=== PATIENT | female | born 1965 | race Caucasian/White ===

== ENCOUNTER → 2016-12-23 | Outpatient (CLI) | payer MEDICAID ==
--- NOTE | 2016-12-23 12:51 | US ---
EXAMINATION TYPE: US axilla extremity LT DATE OF EXAM: 12/23/2016 COMPARISON: NONE CLINICAL HISTORY: Lymphadenopathy R59.9. Palpable in left axilla for years, tender 1.4cm isoechoic well circumscribed lesion seen, non vascular. IMPRESSION: 1.4 CM SOLID MASS IN THE LEFT AXILLA. THIS DOES NOT HAVE THE APPEARANCE OF A LYMPH NODE.
== END | disposition home or self-care (01) ==
LOC: RADUSWWP 11:53
PROVIDERS: ATTEND Surgery
DX: R22.9 Localized swelling, mass and lump, unspecified (principal)

== ENCOUNTER → 2016-12-27 | Outpatient (CLI) | payer MEDICAID, OTHER ==
--- NOTE | 2016-12-28 12:50 | MM ---
Reason for exam: screening (asymptomatic). Last mammogram was performed 2 years and 7 months ago. History: Patient is postmenopausal. Excisional biopsy of the right breast, 1997. Physical Findings: A clinical breast exam by your physician is recommended on an annual basis and results should be correlated with mammographic findings. MG Screening Mammo w CAD Bilateral CC and MLO view(s) were taken. Prior study comparison: May 26, 2014, bilateral MG screening mammo w CAD. May 02, 2008, bilateral digital screening mammogram. The breast tissue is heterogeneously dense. This may lower the sensitivity of mammography. No significant changes when compared with prior studies. ASSESSMENT: Benign, BI-RAD 2 RECOMMENDATION: Routine screening mammogram of both breasts in 1 year.
== END | disposition home or self-care (01) ==
LOC: RADMAMWWP 10:55
PROVIDERS: ATTEND Internal Medicine
DX: Z12.31 Encounter for screening mammogram for malignant neoplasm of breast (principal)

== ENCOUNTER → 2016-12-30 | Day surgery (SDC) | payer MEDICAID, OTHER ==
[2016-12-28 11:54] VITALS: BMI 33.0
[~2016-12-30] MED LIST: LACTATED RINGERS 1,000 ML IV SCH; LIDOCAINE 1% 20 ML VIAL (10MG/ML) FOR IV START INTRADERMA PRN; PROPOFOL 10 MG/ML 20 ML VIAL IV ONE
[2016-12-30 12:29] VITALS: RESP 16; TEMP 98.3
[2016-12-30 12:35] LABS: Glucose,Whole Blood 76 mg/dL (75-99)
--- NOTE | 2016-12-30 13:41 | P.OP ---
Date of Procedure: 12/30/16 Preoperative Diagnosis: Colon cancer screening Postoperative Diagnosis: Same, normal colonoscopy Procedure(s) Performed: Colonoscopy Implants: Anesthesia: MAC Surgeon: Heather Rivera Pathology: none sent Condition: stable Disposition: PACU Indications for Procedure: The patient presented for colon cancer screening Operative Findings: She's taken to the endoscopy suite where colonoscope is passed per rectum to the cecum. She had an excellent Prep. She had no evidence of polyp, mass lesion, ulcer or other mucosal abnormality. No evidence of any diverticular disease. No significant hemorrhoidal disease on retroflexion of the scope She tolerated the procedure without difficulty and was taken recovery room in satisfactory condition. She did after repeat colonoscopy in 10 years as long as nothing changes with the bowel habits. Description of Procedure: Plan - Discharge Summary New Discharge Prescriptions: No Action Quinapril HCl [Accupril] 20 mg PO DAILY Methocarbamol [Robaxin] 750 mg PO TID Isosorbide Mononitrate [Imdur] 30 mg PO BID Aspirin 81 mg PO DAILY Cholecalciferol [Vitamin D3] 1,000 units PO DAILY Pravastatin Sodium [Pravachol] 10 mg PO DAILY #30 tab Dapagliflozin Propanediol [Farxiga] 10 mg PO DAILY Ranolazine [Ranexa] 500 mg PO BID metFORMIN HCL [Glucophage] 1,000 mg PO BID Metoprolol Succinate (ER) [Toprol Xl] 100 mg PO DAILY Insulin Glargine/Lixisenatide [Soliqua 100 Unit-33 Mcg/ml Pen] 30 units SQ QAM Discharge Medication List Aspirin 81 mg PO DAILY 11/21/13 [History] Isosorbide Mononitrate [Imdur] 30 mg PO BID 11/21/13 [History] Methocarbamol [Robaxin] 750 mg PO TID 11/21/13 [History] Quinapril HCl [Accupril] 20 mg PO DAILY 11/21/13 [History] Cholecalciferol [Vitamin D3] 1,000 units PO DAILY 12/04/13 [History] Pravastatin Sodium [Pravachol] 10 mg PO DAILY #30 tab 10/05/14 [Rx] Dapagliflozin Propanediol [Farxiga] 10 mg PO DAILY 11/13/14 [History] Ranolazine [Ranexa] 500 mg PO BID 06/03/15 [History] Metoprolol Succinate (ER) [Toprol Xl] 100 mg PO DAILY 01/25/16 [History] metFORMIN HCL [Glucophage] 1,000 mg PO BID 01/25/16 [History] Insulin Glargine/Lixisenatide [Soliqua 100 Unit-33 Mcg/ml Pen] 30 units SQ QAM 12/28/16 [History] Discharge Disposition: HOME SELF-CARE
[2016-12-30 14:12] LABS: Glucose,Whole Blood 67 mg/dL (75-99)
[2016-12-30 14:19] VITALS: BP 140/76; PULSE 71
== END | disposition home or self-care (01) ==
LOC: ORWHC2ENDO 12:11
PROVIDERS: ATTEND Surgery
DX: Z12.11 Encounter for screening for malignant neoplasm of colon (principal); I25.10 Atherosclerotic heart disease of native coronary artery without angina pectoris; I10 Essential (primary) hypertension; E78.5 Hyperlipidemia, unspecified; Z95.5 Presence of coronary angioplasty implant and graft; E11.9 Type 2 diabetes mellitus without complications; Z79.4 Long term (current) use of insulin; Z79.84 Long term (current) use of oral hypoglycemic drugs; Z79.82 Long term (current) use of aspirin; Z79.899 Other long term (current) drug therapy
CPT/HCPCS: J2704; G0121

== ENCOUNTER → 2017-10-30 | Outpatient (CLI) | payer MEDICAID ==
[2017-10-30 09:54] LABS: HGB 13.4 gm/dL (11.4-16.0); MCH 31.2 pg (25.0-35.0); MCHC 32.7 g/dL (31.0-37.0); MCV 95.4 fL (80.0-100.0); Mean Platelet Volume 6.8; Platelet Count 330 k/uL (150-450); RDW 12.9 % (11.5-15.5); WBC 10.2 k/uL (3.8-10.6)
[2017-10-30 10:19] LABS: Anion Gap 9 mmol/L; Blood Urea Nitrogen 21 mg/dL (7-17); Carbon Dioxide 28 mmol/L (22-30); Chloride 105 mmol/L (98-107); Potassium 4.3 mmol/L (3.5-5.1); Sodium 142 mmol/L (137-145)
== END | disposition home or self-care (01) ==
LOC: LABPAT 09:11
PROVIDERS: ATTEND Internal Medicine Interventional Cardiology
DX: Z01.812 Encounter for preprocedural laboratory examination (principal); I25.10 Atherosclerotic heart disease of native coronary artery without angina pectoris
CPT/HCPCS: 36415; 80051; 82565; 84520; 85027

== ENCOUNTER → 2017-10-30 | Outpatient (CLI) | payer MEDICAID ==
[2017-10-30 10:23] LABS: ALT 45 U/L (9-52); AST 27 U/L (14-36); Cholesterol 120 mg/dL (<200); HDL Cholesterol 67 mg/dL (40-60); LDL Cholesterol,Calculated 32 mg/dL (0-99); Triglycerides 103 mg/dL (<150)
[2017-10-30 18:41] LABS: Hemoglobin A1C 11.7 % (4.0-6.0)
== END ==
LOC: LABWHC1 09:14
PROVIDERS: ATTEND Internal Medicine Interventional Cardiology
DX: E78.2 Mixed hyperlipidemia (principal); E55.9 Vitamin D deficiency, unspecified; E11.65 Type 2 diabetes mellitus with hyperglycemia
CPT/HCPCS: 36415; 80061; 82043; 82306; 82570; 83036; 84450; 84460

== ENCOUNTER 2017-11-06 06:23 | Day surgery (SDC) | payer MEDICAID ==
[2017-11-06] MEDS ORDERED: SODIUM CHLORIDE 0.9% 1,000 ML in EMPTY BAG 1 BAG IV ONE (06:29)
[2017-11-06] MEDS ORDERED: ASPIRIN 325 MG TAB PO STA (06:29)
[2017-11-06] MEDS ORDERED: NITROGLYCERIN SL TABS 0.4 MG TAB SUBLINGUAL PRN (06:29)
[2017-11-06] MEDS ORDERED: ALPRAZolam 0.5 MG TAB PO PRN (06:29)
[2017-11-06] MEDS ORDERED: ALPRAZolam 0.25 MG TAB PO PRN (06:29)
[2017-11-06 07:05] LABS: Glucose,Whole Blood 71 mg/dL (75-99)
[2017-11-06 08:18] LABS: Glucose,Whole Blood 63 mg/dL (75-99)
[2017-11-06] MEDS ORDERED: MIDAZOLAM 2 MG/2 ML VIAL IV ONE (12:32)
[2017-11-06] MEDS ORDERED: LIDOCAINE 2% INJ 20 MG/ML SQ ONE (12:43)
[2017-11-06] MEDS ORDERED: IOPAMIDOL-370 125ML BTL INJ ONE (13:14)
[2017-11-06] MEDS ORDERED: RX INFO: IV CONTRAST WAS GIVEN 1 EACH MISC MISCELLANE PRN (13:18)
[2017-11-06] MEDS ORDERED: LIDOCAINE 2% INJ 20 MG/ML (20 ML MDV) ONE (13:26)
[2017-11-06] MEDS ORDERED: SODIUM CHLORIDE 0.9% 1,000 ML IV SCH (13:30)
[2017-11-06 15:10] LABS: Glucose,Whole Blood 73 mg/dL (75-99)
[2017-11-06 15:10] LABS: Glucose,Whole Blood 66 mg/dL (75-99)
--- NOTE | 2017-11-06 16:29 | CC ---
CARDIAC CATHETERIZATION REPORT DATE OF SERVICE: 11/06/2017 PERFORMING PHYSICIAN: Raheem Frazier MD, property master. PROCEDURES PERFORMED: 1. Selective right and left coronary angiogram. 2. Left heart catheterization. INDICATION: This is a pleasant 52-year-old female patient with known history of coronary artery disease and prior triple-vessel angioplasty and stenting. She was experiencing intermittent episodes of chest discomfort concerning for angina. Heart catheterization was recommended. She is on maximized medical treatment. APPROACH: Right common femoral artery. COMPLICATIONS: None. LEVEL OF SEDATION: Moderate with sedation length of 31 minutes. PROCEDURE DESCRIPTION: After obtaining informed consent, the patient was brought to the cardiac general production laborer. The right common femoral artery was cannulated using micropuncture technique. The micropuncture wire passed easily. Then I placed a 6-Japanese sheath in the right common femoral artery. I did selective right and left coronary angiogram using Jadon right for the RCA and JL3.5 for the left coronary system. Then I did left heart catheterization using 6- Japanese pigtail catheter. The procedure was completed without any complication. SELECTIVE CORONARY ANGIOGRAM: 1. The right coronary artery is a large-caliber vessel. It is a dominant vessel. The proximal RCA and mid RCA has intermediate disease only in the range of 50%. The RCA distally is stented and the stent is patent. The RCA bifurcates into PDA and PLV branches. The PDA branch is angiographically normal and the PLV branch has a lesion that appeared to be in the range of 80% to 90%. 2. The left main is angiographically normal. It bifurcates into left circumflex and left anterior descending artery. 3. The left circumflex is a large-caliber vessel. It is a nondominant vessel. The proximal circumflex appeared to have mild disease only. The mid circumflex is stented and the stent is patent. The circumflex distally is angiographically normal. 4. The LAD: The proximal LAD appeared to be angiographically normal. The mid LAD by the bifurcation of the first and second diagonal is stented and the stent has mild to moderate in-stent restenosis. The LAD distally appeared to be angiographically normal. HEMODYNAMICS: The left ventricular end-diastolic pressure was about 12 mmHg, and no gradient was identified across the aortic valve. CONCLUSION: 1. Patent stent in the distal RCA with severe disease involving the ostial PLV branch of the RCA. 2. Normal left main coronary artery. 3. Patent stent in the left circumflex. 4. Mild to moderate in-stent restenosis of the mid LAD. POST-PROCEDURE MANAGEMENT: I did recommend maximized medical treatment at this point of time. The patient does not want to add any Ranexa to the current medical treatment and she would like to pursue percutaneous coronary intervention. I will schedule her tomorrow to undergo stenting of the PLV branch of the RCA. MMODL / IJN: [id number] /
[2017-11-06 17:09] LABS: Glucose,Whole Blood 168 mg/dL (75-99)
[2017-11-06] MEDS: INSULIN ASPART 100 UNIT/ML 1 ML 10 ML VIAL SQ SCH (17:23)
[2017-11-06] MEDS: ISOSORBIDE MONONITRATE ER 30 MG TAB.ER.24H PO SCH (20:23)
[2017-11-06] MEDS: RANOLAZINE 500 MG TAB.ER.12H PO SCH (20:23)
[2017-11-06 20:56] LABS: Glucose,Whole Blood 171 mg/dL (75-99)
[2017-11-07] MEDS: CHOLECALCIFEROL 1,000 UNIT TAB PO SCH (06:36)
[2017-11-07] MEDS: CLOPIDOGREL 75 MG TAB PO SCH (06:37)
[2017-11-07] MEDS: RANOLAZINE 500 MG TAB.ER.12H PO SCH ×2 (06:38→20:54)
[2017-11-07] MEDS: LISINOPRIL 20 MG TAB PO SCH (06:38)
[2017-11-07] MEDS: METOPROLOL SUCCINATE (ER) 100 MG TAB.ER.24H PO SCH (06:38)
[2017-11-07] MEDS: ISOSORBIDE MONONITRATE ER 30 MG TAB.ER.24H PO SCH ×2 (06:42→20:58)
[2017-11-07 06:46] LABS: Glucose,Whole Blood 169 mg/dL (75-99)
[2017-11-07] MEDS ORDERED: ASPIRIN 325 MG TAB PO ONE (07:46)
[2017-11-07] MEDS ORDERED: SODIUM CHLORIDE 0.9% 1,000 ML IV ONE (07:50)
[2017-11-07] MEDS ORDERED: MIDAZOLAM 2 MG/2 ML VIAL IV ONE (08:00)
[2017-11-07] MEDS ORDERED: LIDOCAINE 2% INJ 20 MG/ML SQ ONE (08:05)
[2017-11-07] MEDS ORDERED: BIVALIRUDIN BOLUS 250 MG/50 ML IV ONE (08:10)
[2017-11-07] MEDS ORDERED: BIVALIRUDIN 250 MG in SODIUM CHLORIDE 0.9% 50 ML IV ONE (08:11)
[2017-11-07] MEDS ORDERED: fentaNYL (PF) 50 MCG/ML 2 ML AMP IV ONE (08:12)
[2017-11-07] MEDS ORDERED: NITROGLYCERIN 1000MCG/10ML SYRINGE INTRACORON ONE (08:37)
[2017-11-07] MEDS ORDERED: IOPAMIDOL-370 125ML BTL INJ ONE (08:39)
[2017-11-07] MEDS ORDERED: CLOPIDOGREL 75 MG TAB PO ONE (08:40)
[2017-11-07] MEDS ORDERED: NITROGLYCERIN SL TABS 0.4 MG TAB SUBLINGUAL PRN (08:43)
[2017-11-07] MEDS ORDERED: MAG HYDROX/AL HYDROX/SIMETH 30 ML CUP PO PRN (08:43)
[2017-11-07] MEDS ORDERED: ZOLPIDEM 5 MG TAB PO PRN (08:43)
[2017-11-07] MEDS ORDERED: RX INFO: IV CONTRAST WAS GIVEN 1 EACH MISC MISCELLANE PRN (08:43)
[2017-11-07] MEDS ORDERED: ATROPINE SULFATE 0.1 MG/ML 10ML SYRINGE IV PRN (08:43)
[2017-11-07] MEDS ORDERED: SODIUM CHLORIDE 0.9% 1,000 ML IV SCH (08:45)
--- NOTE | 2017-11-07 09:08 | LTR ---
November 06, 2017 Re: Cabrera Luciana Dear Dr. Thomas: Ms. Luciana Rees was experiencing intermittent episodes of chest discomfort concerning for unstable angina and she underwent a heart catheterization and that revealed severe disease involving the PLV branch of the RCA and she underwent successful stenting of that branch with good angiographic results and without any complication. I want to thank you for allowing me to participate in her care and please do not hesitate to call if you have any question or concern. Sincerely, MD ISELA Lucia / CLINTN: [id number] /
[2017-11-07 09:20] LABS: Glucose,Whole Blood 194 mg/dL (75-99)
[2017-11-07] MEDS: ASPIRIN 81 MG PO SCH (09:32)
[2017-11-07 09:42] VITALS: BMI 40.1
[2017-11-07] MEDS: INSULIN DETEMIR 100 UNIT/ML 10 ML VIAL SQ SCH ×2 (09:53→10:27)
[2017-11-07] MEDS: INSULIN ASPART 100 UNIT/ML 1 ML 10 ML VIAL SQ SCH ×3 (09:53→17:20)
[2017-11-07] MEDS: PIOGLITAZONE 15 MG TAB PO SCH (09:54)
[2017-11-07] MEDS: ACETAMINOPHEN TAB 325 MG TAB PO PRN (11:01)
--- NOTE | 2017-11-07 11:50 | PTCA ---
PERCUTANEOUSTRANS CORORONARY ANGIOGRAPHY DATE OF SERVICE: 11/07/2017 PERFORMING PHYSICIAN: Raheem Frazier MD, trademark attorney. PROCEDURE PERFORMED: Successful stenting of the PLV branch of the RCA using 2.5 x 8 mm Xience PRICILLA with good angiographic results. INDICATION: This is a pleasant 52-year-old female patient with known history of coronary artery disease and prior stenting as well as multiple comorbid conditions including diabetes, hypertension, dyslipidemia, was experiencing intermittent episodes of chest discomfort concerning for unstable angina. Patient underwent a heart catheterization yesterday and that showed severe disease involving the PLV branch of the RCA and she was brought today to undergo an intervention on it. APPROACH: Right common femoral artery. COMPLICATION: None. LEVEL OF SEDATION: Moderate sedation length of 35 minutes. PROCEDURE DESCRIPTION: After obtaining an informed consent, the patient was brought to the cardiac laboratory monitor. The right common femoral artery was cannulated using micropuncture technique, the micropuncture wire passed easily, then I placed a 6-Romanian sheath in the right common femoral artery. Subsequently I did start anticoagulation using Angiomax. I did after that engage the RCA using a Dionicio right guide. Then I did wire the RCA using initially a whisper wire, but I could not advance any balloon over the whisper wire, so I have to use another wire which was a run-through wire. I was able to balloon the PLV branch using initially 1.5 mm balloon, then 2.5 mm balloon then I deployed 2.5 x 8 mm Xience PRICILLA where the stent was positioned under fluoroscopy guidance and deployed under its nominal pressure. The following angiogram showed good angiographic results without perforation and without dissection with good flow. The procedure was completed without any complication. POSTPROCEDURE MANAGEMENT: 1. Dual anti-platelet therapy. 2. Risk factor modifications. 3. Follow up with the patient. MMODL / IJN: [id number] /
[2017-11-07 12:16] LABS: Glucose,Whole Blood 239 mg/dL (75-99)
[2017-11-07 16:49] LABS: Glucose,Whole Blood 82 mg/dL (75-99)
[2017-11-07 19:40] LABS: Glucose,Whole Blood 46 mg/dL (75-99)
[2017-11-07 20:02] LABS: Glucose,Whole Blood 61 mg/dL (75-99)
[2017-11-08] MEDS: ACETAMINOPHEN TAB 325 MG TAB PO PRN (04:03)
[2017-11-08 05:57] LABS: Glucose,Whole Blood 72 mg/dL (75-99)
[2017-11-08 06:01] LABS: Basophils % (A) 0 %; Eosinophils # (A) 0.1 k/uL (0-0.7); Eosinophils % (A) 1 %; HCT 34.5 % (34.0-46.0); HGB 11.2 gm/dL (11.4-16.0); Lymphocytes # (A) 2.1 k/uL (1.0-4.8); Lymphocytes % (A) 30 %; MCH 30.9 pg (25.0-35.0); MCHC 32.3 g/dL (31.0-37.0); MCV 95.6 fL (80.0-100.0); Mean Platelet Volume 7.9; Monocytes # (A) 0.4 k/uL (0-1.0); Monocytes % (A) 6 %; Neutrophils # (A) 4.3 k/uL (1.3-7.7); Neutrophils % (A) 62 %; Platelet Count 278 k/uL (150-450); RBC 3.61 m/uL (3.80-5.40); WBC 6.9 k/uL (3.8-10.6)
[2017-11-08 06:26] LABS: Anion Gap 6 mmol/L; Blood Urea Nitrogen 20 mg/dL (7-17); Calcium 8.8 mg/dL (8.4-10.2); Carbon Dioxide 29 mmol/L (22-30); Chloride 105 mmol/L (98-107); Glucose 87 mg/dL (74-99); Potassium 4.7 mmol/L (3.5-5.1); Sodium 140 mmol/L (137-145)
[2017-11-08] MEDS: INSULIN ASPART 100 UNIT/ML 1 ML 10 ML VIAL SQ SCH (06:49)
[2017-11-08 08:07] VITALS: BP 116/82; PULSE 70; RESP 16; TEMP 97.8
[2017-11-08] MEDS: INSULIN DETEMIR 100 UNIT/ML 10 ML VIAL SQ SCH (08:52)
[2017-11-08] MEDS: LISINOPRIL 20 MG TAB PO SCH (08:52)
[2017-11-08] MEDS: METOPROLOL SUCCINATE (ER) 100 MG TAB.ER.24H PO SCH (08:52)
[2017-11-08] MEDS: ASPIRIN 81 MG PO SCH (08:52)
[2017-11-08] MEDS: RANOLAZINE 500 MG TAB.ER.12H PO SCH (08:52)
[2017-11-08] MEDS: CHOLECALCIFEROL 1,000 UNIT TAB PO SCH (08:52)
[2017-11-08] MEDS: CLOPIDOGREL 75 MG TAB PO SCH (08:52)
[2017-11-08] MEDS: PIOGLITAZONE 15 MG TAB PO SCH (08:52)
[2017-11-08] MEDS: ISOSORBIDE MONONITRATE ER 30 MG TAB.ER.24H PO SCH (08:52)
--- NOTE | 2017-11-08 12:17 | DS ---
DISCHARGE SUMMARY DATE OF ADMISSION: 11/06/2017 DATE OF DISCHARGE: 11/08/2017. BRIEF HISTORY: This is a pleasant 52-year-old female patient with a known history of coronary artery disease and prior coronary artery stenting, who was experiencing intermittent episodes of chest discomfort concerning for angina. She underwent a heart catheterization and that revealed critical disease involving the PLV branch of the RCA and the following day, she underwent successful stenting of the PLV branch of the RCA using a drug-eluting stent with good angiographic results and without any complication from a procedure was performed from the right groin. On follow up with her today, she is asymptomatic. The chest discomfort has resolved completely. The right groin is soft and nontender and without any bruises. The patient is going to be discharged home today and I will follow up with the patient in the office as an outpatient. ISELA / STEVE: [id number] /
== END 2017-11-08 09:42 | disposition home or self-care (01) ==
LOC: CATHCVL 06:23 → 6SEL 13:48 → CATHCVL 11-08 09:42
PROVIDERS: ATTEND Internal Medicine Interventional Cardiology
DX: I25.110 Atherosclerotic heart disease of native coronary artery with unstable angina pectoris (principal); T82.855A Stenosis of coronary artery stent, initial encounter; I10 Essential (primary) hypertension; E78.00 Pure hypercholesterolemia, unspecified; E66.9 Obesity, unspecified; E11.9 Type 2 diabetes mellitus without complications; E78.5 Hyperlipidemia, unspecified; Z79.4 Long term (current) use of insulin; Z79.02 Long term (current) use of antithrombotics/antiplatelets; Z95.5 Presence of coronary angioplasty implant and graft; Z88.8 Allergy status to other drugs, medicaments and biological substances; Z79.82 Long term (current) use of aspirin; Z79.899 Other long term (current) drug therapy; Z68.41 Body mass index [BMI] 40.0-44.9, adult
CPT/HCPCS: 93458; 80048; 85025; C9600; C1769 ×5; C1725 ×2; C1887; C1894 ×2; C1874; J2001 ×2; J2250 ×2; J3010; J0583; Q9967 ×2

== ENCOUNTER 2018-02-03 19:43 | Emergency (ER) | payer MEDICAID ==
[2018-02-03 20:05] VITALS: BP 144/70; PULSE 74; RESP 18; TEMP 97.8
[2018-02-03] MEDS ORDERED: HYDROmorphone 1 MG/ML 1 ML SYRINGE IM STA (20:12)
[2018-02-03] MEDS ORDERED: DIAZEPAM 5 MG TAB PO STA (20:12)
[2018-02-03] MEDS ORDERED: IBUPROFEN 800 MG TAB PO STA (20:12)
--- NOTE | 2018-02-03 20:31 | XR ---
EXAMINATION TYPE: XR shoulder complete LT DATE OF EXAM: 02/03/2018 CLINICAL HISTORY: Left shoulder pain no trauma TECHNIQUE: Three views of the left shoulder are obtained. COMPARISON: Prior x-rays of the left shoulder dated 06/25/2012. FINDINGS: There is no acute fracture/dislocation evident in the left shoulder. Mild hypertrophic guille nges are present at the level of the acromioclavicular joint. The visualized ribs are intact and un remarkable. New calcifications project lateral to the shoulder joint indicating peritendinitis calcar ea and or chondrocalcinosis. The calcifications were not present on the prior exam. Satisfactory posi tion of the humeral head inside the glenoid fossa. IMPRESSION: There is no acute fracture or dislocation in the left shoulder. Hypertrophic changes present at the level of the acromioclavicular joint. Calcific density also proje cting lateral to the shoulder consistent with peritendinitis calcarea versus chondrocalcinosis. The c alcifications were not present on the prior x-ray. No focal bone destruction.
--- NOTE | 2018-02-03 20:44 | ED ---
General Adult HPI - General Chief complaint: Extremity Injury, Upper Stated complaint: Arm pain Time Seen by Provider: 02/03/18 20:12 Source: patient, family, RN notes reviewed, old records reviewed Mode of arrival: ambulatory Limitations: no limitations - History of Present Illness Initial comments: This is a 52-year-old female the ER for evaluation. Patient presents for evaluation regarding shoulder pain. Left shoulder pain with decreased range of motion. A she has no specific injury. She states she's had similar issues with her right shoulder. She awoke with the symptoms earlier today. The trauma. No shortness of breath or chest pain - Related Data Home Medications Medication Instructions Recorded Confirmed Aspirin 81 mg PO DAILY 11/21/13 02/03/18 Isosorbide Mononitrate [Imdur] 30 mg PO BID 11/21/13 02/03/18 Quinapril HCl [Accupril] 20 mg PO DAILY 11/21/13 02/03/18 Cholecalciferol [Vitamin D3] 4,000 units PO DAILY 12/04/13 02/03/18 Ranolazine [Ranexa] 500 mg PO BID 06/03/15 02/03/18 Metoprolol Succinate (ER) [Toprol 100 mg PO DAILY 01/25/16 02/03/18 XL] Insulin Glargine [Lantus] 55 unit SQ DAILY 06/12/17 02/03/18 Atorvastatin [Lipitor] 80 mg PO DAILY 11/01/17 02/03/18 Furosemide [Lasix] 20 mg PO DAILY 11/01/17 02/03/18 INSULIN LISPRO (humaLOG) [humaLOG] 10 units SQ AC-TID 11/01/17 02/03/18 Pioglitazone [Actos] 15 mg PO DAILY 11/01/17 02/03/18 Previous Rx's Medication Instructions Recorded Clopidogrel [Plavix] 75 mg PO DAILY #30 tab 06/15/17 Nitroglycerin Sl Tabs [Nitrostat] 0.4 mg SUBLINGUAL Q5M PRN #25 tab 06/15/17 Allergies Allergy/AdvReac Type Severity Reaction Status Date / Time [id number] Reductase AdvReac muscle Verified 02/03/18 20:04 Inhibitor spasms Review of Systems ROS Statement: Those systems with pertinent positive or pertinent negative responses have been documented in the HPI. ROS Other: All systems not noted in ROS Statement are negative. Past Medical History Past Medical History: Coronary Artery Disease (CAD), Chest Pain / Angina, Diabetes Mellitus, Fibromyalgia, Hyperlipidemia, Hypertension, Rheumatoid Arthritis (RA) Additional Past Medical History / Comment(s): IDDM type II, numbness/tingling bilateral hands fingers and bilateral feet's toes, chronic low back pain with r sided sciatica. History of Any Multi-Drug Resistant Organisms: None Reported Past Surgical History: Adenoidectomy, Back Surgery, Section, Cholecystectomy, Heart Catheterization With Stent, Hysterectomy, Orthopedic Surgery, Tonsillectomy, Tubal Ligation Additional Past Surgical History / Comment(s): RIGHT SHOULDER ARTHROSCOPY, COLONOSCOPY, LOW BACK SURGERY WITH RODS/SCREWS, 7 heart stents Past Anesthesia/Blood Transfusion Reactions: No Reported Reaction Date of Last Stent Placement:: 2016 Past Psychological History: No Psychological Hx Reported Smoking Status: Never smoker Past Alcohol Use History: None Reported Past Drug Use History: None Reported - Past Family History Father Family Medical History: Cancer, Coronary Artery Disease (CAD), Diabetes Mellitus Additional Family Medical History / Comment(s): Brain CA Daughter(s) Family Medical History: Diabetes Mellitus Additional Family Medical History / Comment(s): Patient has 2 sisters with no significant past medical history Sister(s) Family Medical History: Thyroid Disorder Mother Family Medical History: Hypertension, Renal Disease Additional Family Medical History / Comment(s): MOTHER OF BRIGHT'S DX AT THE AGE OF 24 YRS. General Exam - General Exam Comments Initial Comments: Significant decreased range of motion and tenderness left shoulder Limitations: no limitations General appearance: alert, in no apparent distress Head exam: Present: atraumatic, normocephalic, normal inspection Eye exam: Present: normal appearance, PERRL, EOMI. Absent: scleral icterus, conjunctival injection, periorbital swelling ENT exam: Present: normal exam, mucous membranes moist Neck exam: Present: normal inspection. Absent: tenderness, meningismus, lymphadenopathy Respiratory exam: Present: normal lung sounds bilaterally. Absent: respiratory distress, wheezes, rales, rhonchi, stridor Cardiovascular Exam: Present: regular rate, normal rhythm, normal heart sounds. Absent: systolic murmur, diastolic murmur, rubs, gallop, clicks GI/Abdominal exam: Present: soft, normal bowel sounds. Absent: distended, tenderness, guarding, rebound, rigid Extremities exam: Present: normal inspection, full ROM, normal capillary refill. Absent: tenderness, pedal edema, joint swelling, calf tenderness Back exam: Present: normal inspection Neurological exam: Present: alert, oriented X3, CN II-XII intact Psychiatric exam: Present: normal affect, normal mood Skin exam: Present: warm, dry, intact, normal color. Absent: rash Course Vital Signs 02/03/18 20:00 Temperature 97.8 F Pulse Rate 74 Respiratory 18 Rate Blood Pressure 144/70 O2 Sat by Pulse 97 Oximetry - Reevaluation(s) Reevaluation #1: Unable to take patient range of motion exercises Procedures - Bursa Procedures Consent Obtained: verbal consent Time Out Performed: Yes Indications: injection only Side of Body: left Site of Procedure: shoulder/SA bursa XRAY Obtained: normal Local Anesthetic Used: Lidocaine 2% Patient Tolerated Procedure: well Complications: none Medical Decision Making - Medical Decision Making 52 female the ER for evaluation of left shoulder pain and strain, possible bursitis. Patient was given shoulder injection here in the emergency room, as well as pain control with no specific improvement. Patient will discharge home to consider rest ice and range of motion exercises - Radiology Data Radiology results: report reviewed (X-ray left shoulder is negative for acute disease), image reviewed Disposition Clinical Impression: Strain of shoulder Disposition: HOME SELF-CARE Condition: Good Instructions: Shoulder Sprain (ED) Is patient prescribed a controlled substance at d/c from ED?: No Referrals: Liliana Thomas MD [Primary Care Provider] - 1-2 days
[2018-02-03] MEDS ORDERED: LIDOCAINE 1% INJ 10MG/ML (20 ML MDV) IV STA (20:51)
[2018-02-03] MEDS ORDERED: LIDOCAINE 1%-EPI 1:100,000 30 ML VIAL INTRAARTIC STA (20:51)
== END 2018-02-03 21:03 | disposition home or self-care (01) ==
LOC: EC 19:43
DX: S46.912A Strain of unspecified muscle, fascia and tendon at shoulder and upper arm level, left arm, initial encounter (principal); I25.10 Atherosclerotic heart disease of native coronary artery without angina pectoris; E11.9 Type 2 diabetes mellitus without complications; M79.7 Fibromyalgia; E78.5 Hyperlipidemia, unspecified; I10 Essential (primary) hypertension; M06.9 Rheumatoid arthritis, unspecified; Z98.890 Other specified postprocedural states; Z79.4 Long term (current) use of insulin; Z79.82 Long term (current) use of aspirin; Z79.899 Other long term (current) drug therapy; Z88.8 Allergy status to other drugs, medicaments and biological substances; X58.XXXA Exposure to other specified factors, initial encounter
CPT/HCPCS: 73030; 99284; 20610; 96372; J1170

== ENCOUNTER 2018-04-10 10:44 | Day surgery (SDC) | payer MEDICAID ==
[2018-04-06 09:23] VITALS: BMI 36.6
[~2018-04-10 10:44] MED LIST changes: +ALPRAZolam 0.25 MG TAB PO PRN; +ASPIRIN 325 MG TAB PO ONE; -LACTATED RINGERS 1,000 ML IV SCH; -LIDOCAINE 1% 20 ML VIAL (10MG/ML) FOR IV START INTRADERMA PRN; +NITROGLYCERIN SL TABS 0.4 MG TAB SUBLINGUAL PRN; -PROPOFOL 10 MG/ML 20 ML VIAL IV ONE; +SODIUM CHLORIDE 0.9% 1,000 ML in EMPTY BAG 1 BAG IV ONE
[2018-04-10] MEDS ORDERED: INSULIN ASPART 100 UNIT/ML 1 ML 10 ML VIAL SQ ONE (11:55)
[2018-04-10 11:57] LABS: Glucose,Whole Blood 249 mg/dL (75-99)
[2018-04-10] MEDS ORDERED: MIDAZOLAM 2 MG/2 ML VIAL ONE (17:03)
[2018-04-10] MEDS ORDERED: LIDOCAINE 1% INJ 10MG/ML (20 ML MDV) ONE (17:03)
[2018-04-10] MEDS ORDERED: MIDAZOLAM 2 MG/2 ML VIAL IVP ONE (17:23)
[2018-04-10] MEDS ORDERED: LIDOCAINE 1% INJ 10MG/ML (20 ML MDV) SQ ONE (17:26)
[2018-04-10] MEDS ORDERED: IV FLUID CONTINUATION 500 ML IV ONE (17:28)
[2018-04-10] MEDS ORDERED: IOPAMIDOL-370 125ML BTL INJ ONE (17:42)
[2018-04-10] MEDS ORDERED: RX INFO: IV CONTRAST WAS GIVEN 1 EACH MISC MISCELLANE PRN (17:52)
[2018-04-10] MEDS ORDERED: SODIUM CHLORIDE 0.9% 1,000 ML IV SCH (18:00)
[2018-04-10 20:34] LABS: Glucose,Whole Blood 234 mg/dL (75-99)
[2018-04-10 23:24] VITALS: BP 135/74; PULSE 65; RESP 16; TEMP 98.3
--- NOTE | 2018-04-11 11:15 | CC ---
CARDIAC CATHETERIZATION REPORT DATE OF SERVICE: 04/10/2018 PERFORMING PHYSICIAN: Raheem Frazier MD, Director Of Customer Service. PROCEDURE PERFORMED: 1. Selective right and left coronary angiogram. 2. Left heart catheterization. INDICATION: This is a very pleasant 52-year-old female patient with known coronary artery disease and prior stenting of the RCA, left circumflex, and LAD, as well as diabetes, which seems to be poorly controlled, was experiencing chest discomfort concerning for angina. Because of that, a heart catheterization was advised. APPROACH: Right common femoral artery. COMPLICATION: None. LEVEL OF SEDATION: Moderate with sedation length of 24 minutes. PROCEDURE DESCRIPTION: After obtaining an informed consent, the patient was brought to the cardiac catheter builder. The right common femoral artery was cannulated using micropuncture technique and a micropuncture wire passed easily. Then I placed a 6-Omani sheath in the right common femoral artery. After that, I did selective right and left coronary angiogram using a Dionicio right for the right coronary artery and JL3.5 for the left coronary system. Left heart catheterization was performed using 6-Omani pigtail catheter. The procedure was completed without any complication. SELECTIVE CORONARY ANGIOGRAM: 1. The right coronary artery is a large caliber vessel. It is a dominant vessel. The RCA proximally appeared to have mild disease only in the range of 30%. The mid RCA is normal. RCA distally is stented and the stent is patent. The RCA bifurcates into PDA and PLV branches, both are angiographically normal. 2. The left main is angiographically normal. It bifurcates into left circumflex and left anterior descending artery. 3. The circumflex is a large caliber vessel. It is a nondominant vessel. The proximal circumflex appeared to be angiographically normal. The mid circumflex is stented and the stent is patent. The circumflex distally is angiographically normal. 4. The LAD. The proximal LAD appeared to be angiographically normal. The mid LAD by the bifurcation of a medium-sized diagonal branch is stented and there is a mild in- stent restenosis only. The first diagonal branch is pinched by the stent and there is an ostial lesion appeared to be in the range of 50%, seems to be unchanged compared to previous angiogram. The second diagonal is angiographically normal. The LAD distally and the midportion appeared to be angiographically normal. HEMODYNAMICS: The left ventricular end-diastolic pressure was 12 mmHg and no gradient was identified across the aortic valve. CONCLUSION: 1. Patent stent in the distal right coronary artery with mild disease involving the proximal right coronary artery. 2. Normal left main coronary artery. 3. Patent stent in the mid left circumflex. 4. Mild in-stent restenosis involving the mid LAD with the ostial diagonal branch appeared to be in the range of 50%, seems to be unchanged compared to before. 5. Normal left ventricular end-diastolic pressure. POSTPROCEDURE MANAGEMENT: 1. Giving the finding of the angiogram similar to previous angiogram, and giving the absence of any high-grade stenosis, I did recommend proceeding with maximized medical treatment. 2. The patient is going to be discharged home later on today and I will follow up with the patient as an outpatient. ISELA / CLINTN: [id number] /
== END 2018-04-11 00:35 | disposition home or self-care (01) ==
LOC: CATHCVL 10:44 → 3OBS 17:47 → CATHCVL 04-11 00:35
PROVIDERS: ATTEND Internal Medicine Interventional Cardiology
DX: I25.110 Atherosclerotic heart disease of native coronary artery with unstable angina pectoris (principal); T82.855A Stenosis of coronary artery stent, initial encounter; I10 Essential (primary) hypertension; E78.00 Pure hypercholesterolemia, unspecified; E11.9 Type 2 diabetes mellitus without complications; E66.9 Obesity, unspecified; Z68.38 Body mass index [BMI] 38.0-38.9, adult; R60.0 Localized edema; Z95.5 Presence of coronary angioplasty implant and graft; Z79.02 Long term (current) use of antithrombotics/antiplatelets; Z79.82 Long term (current) use of aspirin; Z79.4 Long term (current) use of insulin; Z79.899 Other long term (current) drug therapy; Z88.8 Allergy status to other drugs, medicaments and biological substances
CPT/HCPCS: 93458; C1760 ×2; C1769 ×3; C1894; J2250; J2001; Q9967

== ENCOUNTER 2018-09-06 15:08 | Observation (INO) | payer MEDICAID ==
[2018-09-06] MEDS ORDERED: ASPIRIN 81 MG PO STA (15:23)
[2018-09-06 15:43] LABS: Basophils # (A) 0.1 k/uL (0-0.2); Basophils % (A) 1 %; Eosinophils # (A) 0.2 k/uL (0-0.7); Eosinophils % (A) 2 %; HCT 44.5 % (34.0-46.0); HGB 14.3 gm/dL (11.4-16.0); Lymphocytes # (A) 2.4 k/uL (1.0-4.8); Lymphocytes % (A) 22 %; MCHC 32.2 g/dL (31.0-37.0); MCV 96.1 fL (80.0-100.0); Mean Platelet Volume 6.6; Monocytes # (A) 0.5 k/uL (0-1.0); Monocytes % (A) 5 %; Neutrophils # (A) 7.6 k/uL (1.3-7.7); Neutrophils % (A) 71 %; Platelet Count 414 k/uL (150-450); RBC 4.63 m/uL (3.80-5.40); RDW 12.5 % (11.5-15.5); WBC 10.8 k/uL (3.8-10.6)
--- NOTE | 2018-09-06 15:46 | ED ---
General Adult HPI - General Chief complaint: Chest Pain Stated complaint: Chest pain, sent by dr frazier Time Seen by Provider: 09/06/18 15:19 Source: patient Mode of arrival: ambulatory Limitations: no limitations - History of Present Illness Initial comments: Dictation was produced using [employer] dictation software. please excuse any grammatical, word or spelling errors. Chief Complaint: 53-year-old female presents with chest pain. History of Present Illness: Due to-year-old female she went into her blanching machine operator office today. Patient has history of multiple urinary artery stents. She states that she has 8 that had been placed by Dr. Frazier. States that she's been having some chest pressure. I received a call from Dr. Frazier who requested patient be admitted to observation for serial troponins and possible cardiac catheterization procedure tomorrow. Patient denies any nausea. She denies any radiation of pain to her shoulders or neck. She does have some symptoms to her back. Patient appears well at this time. No paresthesias to the arms or legs. Patient still complains of mild chest pressure. The ROS documented in this emergency department record has been reviewed and confirmed by me. Those systems with pertinent positive or negative responses have been documented in the HPI. All other systems are other negative and/or noncontributory. PHYSICAL EXAM: General Impression: Alert and oriented x3, not in acute distress HEENT: Normocephalic atraumatic, extra-ocular movements intact, pupils equal and reactive to light bilaterally, mucous membranes moist. Cardiovascular: Heart regular rate and rhythm, S1&S2 audible, no murmurs, rubs or gallops Chest: Lungs clear to auscultation bilaterally, no rhonchi, no wheeze, no rales Abdomen: Bowel sounds present, abdomen soft, non-tender, non-distended, no organomegaly Musculoskeletal: Pulses present and equal in all extremities, no peripheral edema Motor: Power 5/5 bilaterally, no focal deficits noted Neurological: CN II-XII grossly intact, no focal motor or sensory deficits noted Skin: Intact with no visualized rashes Psych: Normal affect and mood ED course: 53-year-old female presents with chest pain. She was sent here by her blanching machine operator for admission to observation for serial troponins and cardiac workup. Vital signs upon arrival are within acceptable limits. Patient is well -appearing at this time. EKG does not show any signs of ischemia or infarction.Laboratory evaluation obtained mild leukocytosis of 10.8 likely secondary to stress. Coag panel, metabolic panel is obtained. There is hypomagnesemia. Patient given apparent Aidan magnesium. Chest x-ray is unremarkable. Patient reevaluated stable symptoms. Patient be admitted observation for suture troponins and cardiology consultation. EKG interpretation: Ventricular rate 79, normal sinus rhythm, MS interval 146, QRS 80, QTc 447. No MS prolongation, no QTC prolongation, no ST or T-wave changes noted. Overall, this EKG is unremarkable - Related Data Home Medications Medication Instructions Recorded Confirmed Insulin Glargine [Lantus] 50 unit SQ DAILY 06/12/17 09/06/18 Atorvastatin [Lipitor] 80 mg PO DAILY 11/01/17 09/06/18 Furosemide [Lasix] 20 mg PO DAILY 11/01/17 09/06/18 INSULIN ASPART (NovoLOG) [NovoLOG See Protocol SQ AC-TID 04/06/18 09/06/18 (formulary)] Isosorbide Mononitrate [Imdur] 120 mg PO DAILY 04/06/18 09/06/18 Latanoprost Ophth [Xalatan 0.005%] 1 drops BOTH EYES HS 04/06/18 09/06/18 Repatha Push Tronic System 420 mg SQ Q30D 04/06/18 09/06/18 Aspirin EC [Ecotrin Low Dose] 81 mg PO DAILY 09/06/18 09/06/18 Cholecalciferol [Vitamin D3] 4,000 unit PO DAILY 09/06/18 09/06/18 Metoprolol Tartrate [Lopressor] 100 mg PO DAILY 09/06/18 09/06/18 Quinapril HCl [Accupril] 10 mg PO DAILY 09/06/18 09/06/18 Ranolazine [Ranexa] 1,000 mg PO BID 09/06/18 09/06/18 Verapamil HCl [Verelan Pm] 100 mg PO DAILY 09/06/18 09/06/18 metFORMIN HCL 1,000 mg PO BID 09/06/18 09/06/18 Previous Rx's Medication Instructions Recorded Clopidogrel [Plavix] 75 mg PO DAILY #30 tab 06/15/17 Nitroglycerin Sl Tabs [Nitrostat] 0.4 mg SUBLINGUAL Q5M PRN #25 tab 06/15/17 Allergies Allergy/AdvReac Type Severity Reaction Status Date / Time pioglitazone [From Actos] Allergy Swelling Verified 09/06/18 16:15 simvastatin [From Zocor] AdvReac muscle Verified 09/06/18 16:15 spasms Review of Systems ROS Statement: Those systems with pertinent positive or pertinent negative responses have been documented in the HPI. ROS Other: All systems not noted in ROS Statement are negative. Past Medical History Past Medical History: Coronary Artery Disease (CAD), Chest Pain / Angina, Diabetes Mellitus, Fibromyalgia, Hyperlipidemia, Hypertension, Rheumatoid Arthritis (RA) Additional Past Medical History / Comment(s): occ. 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 History of Any Multi-Drug Resistant Organisms: None Reported Past Surgical History: Adenoidectomy, Back Surgery, Section, Cholecystectomy, Heart Catheterization, Heart Catheterization With Stent, Hysterectomy, Orthopedic Surgery, Tonsillectomy, Tubal Ligation Additional Past Surgical History / Comment(s): RIGHT SHOULDER ARTHROSCOPY, COLONOSCOPY, LOW BACK SURGERY WITH RODS/SCREWS, 8 heart stents Past Anesthesia/Blood Transfusion Reactions: No Reported Reaction Date of Last Stent Placement:: 10/2017 Past Psychological History: No Psychological Hx Reported Smoking Status: Never smoker Past Alcohol Use History: None Reported Past Drug Use History: None Reported - Past Family History Father Family Medical History: Cancer Additional Family Medical History / Comment(s): Brain CA Daughter(s) Family Medical History: Diabetes Mellitus Additional Family Medical History / Comment(s): Patient has 2 sisters with no significant past medical history Sister(s) Family Medical History: Thyroid Disorder Mother Family Medical History: Hypertension, Renal Disease Additional Family Medical History / Comment(s): MOTHER OF BRIGHT'S DX AT THE AGE OF 24 YRS. General Exam Limitations: no limitations Course Vital Signs 09/06/18 15:12 Temperature 98.1 F Pulse Rate 79 Respiratory 18 Rate Blood Pressure 120/75 O2 Sat by Pulse 99 Oximetry Medical Decision Making - Lab Data Result diagrams: 09/06/18 15:25 09/06/18 15:25 Lab Results 09/06/18 09/06/18 09/06/18 Range/Units 15:25 15:25 15:25 WBC 10.8 H (3.8-10.6) k/uL RBC 4.63 (3.80-5.40) m/uL Hgb 14.3 (11.4-16.0) gm/dL Hct 44.5 (34.0-46.0) % MCV 96.1 (80.0-100.0) fL MCH 31.0 (25.0-35.0) pg MCHC 32.2 (31.0-37.0) g/dL RDW 12.5 (11.5-15.5) % Plt Count 414 (150-450) k/uL Neutrophils % 71 % Lymphocytes % 22 % Monocytes % 5 % Eosinophils % 2 % Basophils % 1 % Neutrophils # 7.6 (1.3-7.7) k/uL Lymphocytes # 2.4 (1.0-4.8) k/uL Monocytes # 0.5 (0-1.0) k/uL Eosinophils # 0.2 (0-0.7) k/uL Basophils # 0.1 (0-0.2) k/uL PT 9.8 (9.0-12.0) sec INR 0.9 (<1.2) APTT 23.4 (22.0-30.0) sec Sodium 141 (137-145) mmol/L Potassium 4.3 (3.5-5.1) mmol/L Chloride 102 (98-107) mmol/L Carbon Dioxide 30 (22-30) mmol/L Anion Gap 9 mmol/L BUN 19 H (7-17) mg/dL Creatinine 0.69 (0.52-1.04) mg/dL Est GFR (CKD-EPI)AfAm >90 (>60 ml/min/1.73 sqM) Est GFR (CKD-EPI)NonAf >90 (>60 ml/min/1.73 sqM) Glucose 154 H (74-99) mg/dL Calcium 9.5 (8.4-10.2) mg/dL Magnesium 1.5 L (1.6-2.3) mg/dL Total Bilirubin 0.9 (0.2-1.3) mg/dL AST 26 (14-36) U/L ALT 36 (9-52) U/L Alkaline Phosphatase 70 (38-126) U/L Troponin I (0.000-0.034) ng/mL Total Protein 6.8 (6.3-8.2) g/dL Albumin 4.2 (3.5-5.0) g/dL 09/06/18 Range/Units 15:25 WBC (3.8-10.6) k/uL RBC (3.80-5.40) m/uL Hgb (11.4-16.0) gm/dL Hct (34.0-46.0) % MCV (80.0-100.0) fL MCH (25.0-35.0) pg MCHC (31.0-37.0) g/dL RDW (11.5-15.5) % Plt Count (150-450) k/uL Neutrophils % % Lymphocytes % % Monocytes % % Eosinophils % % Basophils % % Neutrophils # (1.3-7.7) k/uL Lymphocytes # (1.0-4.8) k/uL Monocytes # (0-1.0) k/uL Eosinophils # (0-0.7) k/uL Basophils # (0-0.2) k/uL PT (9.0-12.0) sec INR (<1.2) APTT (22.0-30.0) sec Sodium (137-145) mmol/L Potassium (3.5-5.1) mmol/L Chloride (98-107) mmol/L Carbon Dioxide (22-30) mmol/L Anion Gap mmol/L BUN (7-17) mg/dL Creatinine (0.52-1.04) mg/dL Est GFR (CKD-EPI)AfAm (>60 ml/min/1.73 sqM) Est GFR (CKD-EPI)NonAf (>60 ml/min/1.73 sqM) Glucose (74-99) mg/dL Calcium (8.4-10.2) mg/dL Magnesium (1.6-2.3) mg/dL Total Bilirubin (0.2-1.3) mg/dL AST (14-36) U/L ALT (9-52) U/L Alkaline Phosphatase (38-126) U/L Troponin I <0.012 (0.000-0.034) ng/mL Total Protein (6.3-8.2) g/dL Albumin (3.5-5.0) g/dL Disposition Clinical Impression: Chest pain Disposition: ADMITTED IP TO THIS HOSP Condition: Fair Referrals: Anthony Arora DO [Primary Care Provider] - 1-2 days Decision Time: 16:21
[2018-09-06 16:01] LABS: ALT 36 U/L (9-52); AST 26 U/L (14-36); Albumin 4.2 g/dL (3.5-5.0); Alkaline Phosphatase 70 U/L (38-126); Anion Gap 9 mmol/L; Blood Urea Nitrogen 19 mg/dL (7-17); Calcium 9.5 mg/dL (8.4-10.2); Carbon Dioxide 30 mmol/L (22-30); Chloride 102 mmol/L (98-107); Glucose 154 mg/dL (74-99); Magnesium 1.5 mg/dL (1.6-2.3); Potassium 4.3 mmol/L (3.5-5.1); Sodium 141 mmol/L (137-145); Total Bilirubin 0.9 mg/dL (0.2-1.3); Total Protein 6.8 g/dL (6.3-8.2)
--- NOTE | 2018-09-06 16:09 | XR ---
EXAMINATION TYPE: XR chest 2V DATE OF EXAM: 09/06/2018 COMPARISON: 06/12/2017 HISTORY: Shortness of breath TECHNIQUE: Frontal and lateral views of the chest are obtained. FINDINGS: Scattered senescent parenchymal changes noted. No evidence for infiltrate. No evidence for atelectasis. Heart size is stable. Coronary stent again noted. Mediastinal structures are stable and grossly unremarkable. No evidence for hilar prominence. Degenerative changes dorsal spine. IMPRESSION: 1. No evidence for acute pulmonary disease.
[2018-09-06 16:10] LABS: INR 0.9 (<1.2); Partial Thromboplastin Time 23.4 sec (22.0-30.0); Prothrombin Time 9.8 sec (9.0-12.0)
[2018-09-06] MEDS ORDERED: NITROGLYCERIN SL TABS 0.4 MG TAB SUBLINGUAL PRN (16:21)
[2018-09-06] MEDS: MAGNESIUM SULFATE-D5W PMX 1 GM in DEXTROSE/WATER 1 100ML.BAG IVPB SCH ×2 (17:01→19:21)
[2018-09-06 17:17] VITALS: RESP 18
[2018-09-06 18:42] VITALS: BMI 37.5
[2018-09-06 20:39] LABS: Glucose,Whole Blood 184 mg/dL (75-99)
[2018-09-06] MEDS: RANOLAZINE 500 MG TAB.ER.12H PO SCH (22:09)
[2018-09-06] MEDS: INSULIN ASPART (NovoLOG) 100 UNIT/ML VIAL SQ SCH (22:10)
[2018-09-07 03:38] LABS: Magnesium 1.9 mg/dL (1.6-2.3)
[2018-09-07] MEDS ORDERED: SODIUM CHLORIDE 0.9% 1,000 ML in EMPTY BAG 1 BAG IV ONE (08:19)
[2018-09-07] MEDS ORDERED: ALPRAZolam 0.25 MG TAB PO PRN (08:19)
[2018-09-07] MEDS ORDERED: ALPRAZolam 0.5 MG TAB PO PRN (08:19)
[2018-09-07] MEDS: RANOLAZINE 500 MG TAB.ER.12H PO SCH (08:30)
[2018-09-07] MEDS: INSULIN ASPART (NovoLOG) 100 UNIT/ML VIAL SQ SCH ×3 (08:31→18:03)
[2018-09-07] MEDS ORDERED: ATORVASTATIN 80 MG TAB PO SCH (09:00)
[2018-09-07] MEDS ORDERED: METOPROLOL TARTRATE 50 MG TAB PO SCH (09:00)
[2018-09-07] MEDS ORDERED: ISOSORBIDE MONONITRATE ER 60 MG TAB.ER.24H PO SCH (09:00)
[2018-09-07] MEDS ORDERED: ASPIRIN 325 MG TAB PO SCH (09:00)
[2018-09-07] MEDS ORDERED: VERAPAMIL SR 120 MG TABLET.ER PO SCH (09:00)
[2018-09-07] MEDS ORDERED: NON-FORMULARY DRUG (Aspirin Ec 81 MG) PO SCH (09:00)
[2018-09-07] MEDS ORDERED: FUROSEMIDE 20 MG TAB PO SCH (09:00)
[2018-09-07] MEDS ORDERED: CLOPIDOGREL 75 MG TAB PO SCH (09:00)
--- NOTE | 2018-09-07 10:19 | P.PN ---
Subjective This is a pleasant 53-year-old female past medical history significant for coronary artery disease status post multiple angioplasties, poorly controlled diabetes mellitus, hypertension, dyslipidemia. She follows in the office with Dr. Frazier. She was sent over from the office yesterday for symptoms of chest discomfort. She is seen and examined resting comfortably in bed in no acute distress. She continues to complain of a constant heaviness in the left precordial and midsternal region with radiation through to her back. This is associated with mild shortness of breath. Her symptoms have been constant and are exacerbated with mild exertion such as getting up to the bathroom. She denies associated dizziness, palpitations, nausea, vomiting or diaphoresis. EKG on arrival to the emergency department reveal sinus mechanism with no acute ST or T wave abnormalities noted. Chest x-ray is negative for an acute cardiopulmonary process. Cardiac enzymes negative 3. Current cardiac medications include verapamil 100 mg daily, Ranexa 1000 mg twice a day, quinapril 10 mg daily, Lopressor 100 mg daily, Imdur 120 mg daily, Lasix 20 mg daily, Plavix 75 mg daily, atorvastatin 80 mg daily, aspirin 81 mg daily and repatha 420 mg SQ every 3 days. Recent heart catheterization performed March 2018 reveals stent in the distal RCA, patent stent to circumflex patent, mild in-stent restenosis of the mid LAD and ostial diagonal branch lesion appearing in the 50% range. This unchanged from previous. Maximum medical therapy was recommended at that time. GENERAL: Well-appearing, well-nourished and in no acute distress. NECK: Supple without JVD or thyromegaly. LUNGS: Breath sounds clear to auscultation bilaterally. Respiration equal and unlabored. No wheezes, rales or rhonchi. HEART: Regular rate and rhythm without murmurs, rubs or gallops. S1 and S2 heard. EXTREMITIES: Normal range of motion, no edema. No clubbing or cyanosis. Peripheral pulses intact. ASSESSMENT Unstable angina in a patient with known coronary artery disease status post multiple angioplasties History of coronary artery disease status post multiple angioplasties Poorly controlled diabetes mellitus, most recent hemoglobin A1c was 14 Hypertension Dyslipidemia PLAN Recommend proceeding with cardiac catheterization to assess for progression of coronary artery disease. I have discussed the risks, benefits and alternative therapies for the above- mentioned procedure and for both sedation/analgesia as well as necessary blood product administration, if indicated, as they pertain to this patient. The patient has indicated understanding and acceptance of the risks and procedures discussed. Questions have been answered appropriately and she is agreeable to move forward with the above-stated procedure. This has been ordered for this morning. Further recommendations to follow based upon clinical course. Resume home cardiac medications. Nurse Practitioner note has been reviewed, I agree with a documented findings and plan of care. Patient was seen and examined. Objective - Vital Signs Vital signs: Vital Signs Temp 98.3 F 09/07/18 08:00 Pulse 67 09/07/18 08:00 Resp 18 09/07/18 08:00 BP 124/85 09/07/18 08:00 Pulse Ox 99 09/07/18 08:00 Intake & Output 09/06/18 09/07/18 09/07/18 18:59 06:59 18:59 Weight 92.986 kg Other: Voiding Method Toilet Toilet # Voids 1 1 - Labs CBC & Chem 7: 09/06/18 15:25 09/06/18 15:25 Labs: Abnormal Lab Results - Last 24 Hours (Table) 09/06/18 09/06/18 09/06/18 Range/Units 15:25 15:25 20:37 WBC 10.8 H (3.8-10.6) k/uL BUN 19 H (7-17) mg/dL Glucose 154 H (74-99) mg/dL POC Glucose (mg/dL) 184 H (75-99) mg/dL Magnesium 1.5 L (1.6-2.3) mg/dL
[2018-09-07] MEDS ORDERED: LIDOCAINE 1% INJ 10MG/ML (20 ML MDV) ONE (11:09)
[2018-09-07] MEDS ORDERED: SODIUM CHLORIDE 0.9% 1,000 ML IV ONE (11:32)
[2018-09-07] MEDS ORDERED: LIDOCAINE 1% INJ 10MG/ML (20 ML MDV) SQ ONE (11:42)
[2018-09-07] MEDS ORDERED: fentaNYL (PF) 50 MCG/ML 2 ML AMP ONE (11:43)
[2018-09-07] MEDS ORDERED: ONDANSETRON 4 MG/2 ML VIAL ONE (11:44)
[2018-09-07] MEDS ORDERED: fentaNYL (PF) 50 MCG/ML 2 ML AMP IVP ONE (11:47)
[2018-09-07] MEDS ORDERED: MIDAZOLAM 2 MG/2 ML VIAL IVP ONE (11:47)
[2018-09-07] MEDS ORDERED: ONDANSETRON 4 MG/2 ML VIAL IVP ONE (11:48)
[2018-09-07 11:59] LABS: Glucose,Whole Blood 238 mg/dL (75-99)
[2018-09-07 11:59] LABS: Glucose,Whole Blood 209 mg/dL (75-99)
[2018-09-07] MEDS ORDERED: RX INFO: IV CONTRAST WAS GIVEN 1 EACH MISC MISCELLANE PRN (12:03)
[2018-09-07] MEDS ORDERED: SODIUM CHLORIDE 0.9% 1,000 ML IV SCH (12:15)
[2018-09-07 12:37] LABS: Glucose,Whole Blood 195 mg/dL (75-99)
--- NOTE | 2018-09-07 12:40 | CC ---
CARDIAC CATHETERIZATION REPORT DATE OF SERVICE: September 07, 2018 PERFORMING PHYSICIAN: Raheem Frazier MD, [employer]. PROCEDURE PERFORMED: 1. Selective right and left coronary angiogram. 2. Left heart catheterization. INDICATION: This is a pleasant 53-year-old female patient with diabetes, hypertension, and dyslipidemia, who was sent to the hospital yesterday from the office with persistent chest discomfort quite concerning for severe coronary artery disease. APPROACH: Left common femoral artery. COMPLICATION: None. LEVEL OF SEDATION: Moderate with sedation length of of 19 minutes. PROCEDURE DESCRIPTION: After obtaining an informed consent, the patient was brought to cardiac lab tech. The left common femoral artery was cannulated using micropuncture technique and a micropuncture wire passed easily. Then I placed a [id number] sheath in the left common femoral artery. After that I did selective right and left coronary angiogram using a Dionicio right for the right and JL4 for the left. Left heart catheterization was performed using Dionicio right, which flipped into the LV then I did pullback across aortic valve. The procedure was completed without complication. SELECTIVE CORONARY ANGIOGRAM: 1. The right coronary artery is a large caliber vessel and it is a dominant vessel. The proximal right has mild disease only. The mid right is normal. Right distal is stented, but the stent is patent. The right distally bifurcates into PDA and PLV branches, both are normal. 2. The left main is angiographically normal. It bifurcates into left circumflex and left anterior descending artery. 3. The left circumflex is stented in the mid to distal portion and the stent is patent. 4. The LAD: The proximal LAD appeared to be angiographically normal. The mid LAD is stented with mild to moderate in-stent restenosis. The LAD gives rise into a diagonal branch which is a large diagonal branch appears to be angiographically normal. The LAD distally appeared to be normal. HEMODYNAMICS: The left ventricular end-diastolic pressure was 12 mmHg without significant gradient across the aortic valve. CONCLUSION: 1. Patent stents in the right coronary artery and left circumflex. 2. Mild to moderate in-stent restenosis of the LAD stent. POSTPROCEDURE MANAGEMENT: Giving the absence of any severe or critical disease, I did recommend maximized medical treatment and follow up with the patient. MMODL / IJN: [id number] /
--- NOTE | 2018-09-07 13:29 | ECHOF ---
Referral Reason: MEASUREMENTS -------- HEIGHT: 157.5 cm WEIGHT: 93.0 kg BP: 104/67 IVSd: 0.7 cm (0.6 - 1.1) LVIDd: 4.0 cm (3.9 - 5.3) LVPWd: 0.9 cm (0.6 - 1.1) IVSs: 1.5 cm LVIDs: 2.1 cm LVPWs: 1.6 cm LAESV Index (A-L): 20.42 ml/m Ao Diam: 2.8 cm (2.0 - 3.7) AV Cusp: 2.3 cm (1.5 - 2.6) LA Diam: 3.0 cm (2.7 - 3.8) MV EXCURSION: 14.881 mm (> 18.000) MV EF SLOPE: 81 mm/s (70 - 150) EPSS: 0.4 cm MV E Jesse: 0.76 m/s MV DecT: 210 ms MV A Jesse: 0.74 m/s MV E/A Ratio: 1.03 RAP: 20.00 mmHg RVSP: 35.92 mmHg FINDINGS -------- Sinus rhythm. This was a technically good study. The left ventricular size is normal. Left ventricular wall thickness is normal. Overall left vent ricular systolic function is normal with, an EF between 55 - 60 %. The right ventricle is normal in size and function. Normal LA size by volume 22+/-6 ml/m2. The right atrium is normal in size. The aortic valve is trileaflet and appears structurally normal. There is trace mitral regurgitation. Trace tricuspid regurgitation present. The right ventricular systolic pressure, as measured by Dopp ler, is 35.92mmHg. Pulmonic valve appears structurally normal. The aortic root, ascending aorta and aortic arch are normal. The inferior vena cava is dilated with no significant inspiratory collapse which is consistent estima sundar right atrial pressure of >20 mmHg. The pericardium is normal. CONCLUSIONS -------- 1. Sinus rhythm. 2. This was a technically good study. 3. The left ventricular size is normal. 4. Left ventricular wall thickness is normal. 5. Overall left ventricular systolic function is normal with, an EF between 55 - 60 %. 6. The right ventricle is normal in size and function. 7. Normal LA size by volume 22+/-6 ml/m2. 8. The right atrium is normal in size. 9. The aortic valve is trileaflet and appears structurally normal. 10. There is trace mitral regurgitation. 11. Trace tricuspid regurgitation present. 12. The right ventricular systolic pressure, as measured by Doppler, is 35.92mmHg. 13. Pulmonic valve appears structurally normal. 14. The aortic root, ascending aorta and aortic arch are normal. 15. The inferior vena cava is dilated with no significant inspiratory collapse which is consistent es timated right atrial pressure of >20 mmHg. 16. The pericardium is normal. DIP DYER: Mel Hernández RDCS
[2018-09-07 15:57] VITALS: BP 100/67; PULSE 63; TEMP 98.2
--- NOTE | 2018-09-07 16:44 | P.HPIM ---
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 Patient has history of multiple urinary artery stents. She states that she has 8 that had been placed by Dr. Frazier. States that she's been having some chest pressure. Dr. Frazier who requested patient be admitted to observation for serial troponins and possible cardiac catheterization procedure tomorrow. Patient denies any nausea. She denies any radiation of pain to her shoulders or neck. She does have some symptoms to her back. Patient appears well at this time. No paresthesias to the arms or legs. Patient still complains of mild chest pressure. EKG on arrival to the emergency department reveal sinus mechanism with no acute ST or T wave abnormalities noted. Chest x-ray is negative for an acute cardiopulmonary process. Cardiac enzymes negative 3. Current cardiac medications include verapamil 100 mg daily, Ranexa 1000 mg twice a day, quinapril 10 mg daily, Lopressor 100 mg daily, Imdur 120 mg daily, Lasix 20 mg daily, Plavix 75 mg daily, atorvastatin 80 mg daily, aspirin 81 mg daily and repatha 420 mg SQ every 3 days. Recent heart catheterization performed March 2018 reveals stent in the distal RCA, patent stent to circumflex patent, mild in-stent restenosis of the mid LAD and ostial diagonal branch lesion appearing in the 50% range. This unchanged from previous. Maximum medical therapy was recommended at that time. Review of Systems Constitutional: Denies chills, Denies fever Eyes: denies blurred vision Cardiovascular: Reports chest pain, Reports dyspnea on exertion Respiratory: Denies cough with sputum Gastrointestinal: Denies abdominal pain Genitourinary: Denies hematuria, Denies urgency Musculoskeletal: Reports low back pain Past Medical History Past Medical History: Coronary Artery Disease (CAD), Chest Pain / Angina, Diabetes Mellitus, Fibromyalgia, Hyperlipidemia, Hypertension, Rheumatoid Arthritis (RA) Additional Past Medical History / Comment(s): occ. 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 History of Any Multi-Drug Resistant Organisms: None Reported Past Surgical History: Adenoidectomy, Back Surgery, Section, Cholecystectomy, Heart Catheterization, Heart Catheterization With Stent, Hysterectomy, Orthopedic Surgery, Tonsillectomy, Tubal Ligation Additional Past Surgical History / Comment(s): RIGHT SHOULDER ARTHROSCOPY, COLONOSCOPY, LOW BACK SURGERY WITH RODS/SCREWS, 8 heart stents Past Anesthesia/Blood Transfusion Reactions: No Reported Reaction Date of Last Stent Placement:: 10/2017 Past Psychological History: No Psychological Hx Reported Additional Psychological History / Comment(s): . Smoking Status: Never smoker Past Alcohol Use History: None Reported Past Drug Use History: None Reported - Past Family History Father Family Medical History: Cancer Additional Family Medical History / Comment(s): Brain CA Daughter(s) Family Medical History: Diabetes Mellitus Additional Family Medical History / Comment(s): Patient has 2 sisters with no significant past medical history Sister(s) Family Medical History: Thyroid Disorder Mother Family Medical History: Hypertension, Renal Disease Additional Family Medical History / Comment(s): MOTHER OF BRIGHT'S DX AT THE AGE OF 24 YRS. Medications and Allergies Home Medications Medication Instructions Recorded Confirmed Type Insulin Glargine [Lantus] 50 unit SQ DAILY 06/12/17 09/06/18 History Clopidogrel [Plavix] 75 mg PO DAILY #30 tab 06/15/17 09/06/18 Rx Nitroglycerin Sl Tabs [Nitrostat] 0.4 mg SUBLINGUAL Q5M PRN #25 tab 06/15/17 Rx Atorvastatin [Lipitor] 80 mg PO DAILY 11/01/17 09/06/18 History Furosemide [Lasix] 20 mg PO DAILY 11/01/17 09/06/18 History INSULIN ASPART (NovoLOG) [NovoLOG See Protocol SQ AC-TID 04/06/18 09/06/18 History (formulary)] Isosorbide Mononitrate [Imdur] 120 mg PO DAILY 04/06/18 09/06/18 History Latanoprost Ophth [Xalatan 0.005%] 1 drops BOTH EYES HS 04/06/18 09/06/18 History Repatha Push Tronic System 420 mg SQ Q30D 04/06/18 09/06/18 History Aspirin EC [Ecotrin Low Dose] 81 mg PO DAILY 09/06/18 09/06/18 History Cholecalciferol [Vitamin D3] 4,000 unit PO DAILY 09/06/18 09/06/18 History Metoprolol Tartrate [Lopressor] 100 mg PO DAILY 09/06/18 09/06/18 History Quinapril HCl [Accupril] 10 mg PO DAILY 09/06/18 09/06/18 History Ranolazine [Ranexa] 1,000 mg PO BID 09/06/18 09/06/18 History Verapamil HCl [Verelan Pm] 100 mg PO DAILY 09/06/18 09/06/18 History metFORMIN HCL 1,000 mg PO BID 09/06/18 09/06/18 History Allergies Allergy/AdvReac Type Severity Reaction Status Date / Time pioglitazone [From Actos] Allergy Swelling Verified 09/06/18 16:15 simvastatin [From Zocor] AdvReac muscle Verified 09/06/18 16:15 spasms Physical Exam Vitals: Vital Signs Temp Pulse Pulse Resp BP BP Pulse Ox 09/07/18 13:00 69 93/55 97 09/07/18 12:45 91/54 09/07/18 12:30 67 97/59 97 09/07/18 12:15 98.1 F 63 18 87/55 92 L 09/07/18 08:00 98.3 F 67 18 124/85 99 09/07/18 04:00 97.4 F L 56 L 18 104/67 98 09/07/18 00:00 18 09/06/18 23:21 97.5 F L 59 L 18 103/64 99 09/06/18 20:00 98.5 F 65 18 114/75 100 09/06/18 17:05 98.1 F 61 18 126/78 98 09/06/18 17:00 68 16 127/84 98 09/06/18 16:30 71 16 97 09/06/18 16:00 123/74 09/06/18 15:30 98 09/06/18 15:29 97 09/06/18 15:12 98.1 F 79 18 120/75 99 Intake and Output 09/06/18 09/07/18 09/07/18 22:59 06:59 14:59 Intake Total 386 Balance 386 Intake: IV 150 Oral 236 Other: Voiding Method Toilet Toilet Toilet # Voids 1 1 Weight 92.986 kg General Impression: Alert and oriented x3, not in acute distress HEENT: Normocephalic atraumatic, extra-ocular movements intact, pupils equal and reactive to light bilaterally, mucous membranes moist. Cardiovascular: Heart regular rate and rhythm, S1&S2 audible, no murmurs, rubs or gallops Chest: Lungs clear to auscultation bilaterally, no rhonchi, no wheeze, no rales Abdomen: Bowel sounds present, abdomen soft, non-tender, non-distended, no organomegaly Musculoskeletal: Pulses present and equal in all extremities, no peripheral edema Motor: Power 5/5 bilaterally, no focal deficits noted Neurological: CN II-XII grossly intact, no focal motor or sensory deficits noted Skin: Intact with no visualized rashes Psych: Normal affect and mood Results CBC & Chem 7: 09/06/18 15:25 09/06/18 15:25 Labs: Abnormal Lab Results - Last 24 Hours (Table) 09/06/18 09/06/18 09/06/18 Range/Units 15:25 15:25 20:37 WBC 10.8 H (3.8-10.6) k/uL BUN 19 H (7-17) mg/dL Glucose 154 H (74-99) mg/dL POC Glucose (mg/dL) 184 H (75-99) mg/dL Hemoglobin A1c (4.0-6.0) % Magnesium 1.5 L (1.6-2.3) mg/dL 09/06/18 09/07/18 09/07/18 Range/Units 22:30 06:45 10:57 WBC (3.8-10.6) k/uL BUN (7-17) mg/dL Glucose (74-99) mg/dL POC Glucose (mg/dL) 209 H 238 H (75-99) mg/dL Hemoglobin A1c 11.0 H (4.0-6.0) % Magnesium (1.6-2.3) mg/dL 09/07/18 Range/Units 12:35 WBC (3.8-10.6) k/uL BUN (7-17) mg/dL Glucose (74-99) mg/dL POC Glucose (mg/dL) 195 H (75-99) mg/dL Hemoglobin A1c (4.0-6.0) % Magnesium (1.6-2.3) mg/dL Thrombosis Risk Factor Assmnt - Choose All That Apply Any of the Below Risk Factors Present?: Yes Each Factor Represents 1 point: Age 41-60 years, Obesity (BMI >25) Other Risk Factors: Yes Thrombosis Risk Factor Assessment Total Risk Factor Score: 2 Thrombosis Risk Factor Assessment Level: Low Risk Assessment and Plan Assessment: 1. Chest pain; unstable angina - Admitted to cardiac telemetry and monitor EKG and trend troponin every 83 - We will continue current home dose of beta blockers, nitrates, Ranexa, Plavix , atorvastatin and aspirin - Cardiology consultation further recommendations 2. History of coronary artery disease with multiple angioplasties; as above 3. Hyperglycemia/ poorly controlled diabetes mellitus; last HbA1c was 14 - Monitor Accu-Cheks every before meals and at bedtime with high-intensity insulin sliding scale - Make adjustments in home therapy if blood sugars remain markedly elevated 4. Hypertension; stable on home dose of Lopressor 100 mg daily and quinapril 10 mg daily 5. Hyperlipidemia; atorvastatin 80 mg by mouth daily at bedtime 6. DVT prophylaxis; subcu heparin CODE STATUS; full code Time with Patient: Greater than 30
--- NOTE | 2018-09-07 16:45 | P.DS ---
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 Patient has history of multiple urinary artery stents. She states that she has 8 that had been placed by Dr. Frazier. States that she's been having some chest pressure. Dr. Frazier who requested patient be admitted to observation for serial troponins and possible cardiac catheterization procedure tomorrow. Patient denies any nausea. She denies any radiation of pain to her shoulders or neck. She does have some symptoms to her back. Patient appears well at this time. No paresthesias to the arms or legs. Patient still complains of mild chest pressure. EKG on arrival to the emergency department reveal sinus mechanism with no acute ST or T wave abnormalities noted. Chest x-ray is negative for an acute cardiopulmonary process. Cardiac enzymes negative 3. Current cardiac medications include verapamil 100 mg daily, Ranexa 1000 mg twice a day, quinapril 10 mg daily, Lopressor 100 mg daily, Imdur 120 mg daily, Lasix 20 mg daily, Plavix 75 mg daily, atorvastatin 80 mg daily, aspirin 81 mg daily and repatha 420 mg SQ every 3 days. Recent heart catheterization performed March 2018 reveals stent in the distal RCA, patent stent to circumflex patent, mild in-stent restenosis of the mid LAD and ostial diagonal branch lesion appearing in the 50% range. This unchanged from previous. Maximum medical therapy was recommended at that time. General Impression: Alert and oriented x3, not in acute distress HEENT: Normocephalic atraumatic, extra-ocular movements intact, pupils equal and reactive to light bilaterally, mucous membranes moist. Cardiovascular: Heart regular rate and rhythm, S1&S2 audible, no murmurs, rubs or gallops Chest: Lungs clear to auscultation bilaterally, no rhonchi, no wheeze, no rales Abdomen: Bowel sounds present, abdomen soft, non-tender, non-distended, no organomegaly Musculoskeletal: Pulses present and equal in all extremities, no peripheral edema Motor: Power 5/5 bilaterally, no focal deficits noted Neurological: CN II-XII grossly intact, no focal motor or sensory deficits noted Skin: Intact with no visualized rashes Psych: Normal affect and mood Patient was rule out acute coronary syndrome and underwent cardiac catheterization which was unremarkable and patient was recommended continuation of medical therapy Patient Condition at Discharge: Fair Plan - Discharge Summary New Discharge Prescriptions: Continue Insulin Glargine [Lantus] 50 unit SQ DAILY Clopidogrel [Plavix] 75 mg PO DAILY #30 tab Nitroglycerin Sl Tabs [Nitrostat] 0.4 mg SUBLINGUAL Q5M PRN #25 tab PRN Reason: Chest Pain Atorvastatin [Lipitor] 80 mg PO DAILY Furosemide [Lasix] 20 mg PO DAILY Latanoprost Ophth [Xalatan 0.005%] 1 drops BOTH EYES HS INSULIN ASPART (NovoLOG) [NovoLOG (formulary)] See Protocol SQ AC-TID Isosorbide Mononitrate [Imdur] 120 mg PO DAILY Repatha Push Tronic System 420 mg SQ Q30D metFORMIN HCL 1,000 mg PO BID Verapamil HCl [Verelan Pm] 100 mg PO DAILY Cholecalciferol [Vitamin D3] 4,000 unit PO DAILY Ranolazine [Ranexa] 1,000 mg PO BID Quinapril HCl [Accupril] 10 mg PO DAILY Metoprolol Tartrate [Lopressor] 100 mg PO DAILY Aspirin EC [Ecotrin Low Dose] 81 mg PO DAILY Discharge Medication List Insulin Glargine [Lantus] 50 unit SQ DAILY 06/12/17 [History] Clopidogrel [Plavix] 75 mg PO DAILY #30 tab 06/15/17 [Rx] Nitroglycerin Sl Tabs [Nitrostat] 0.4 mg SUBLINGUAL Q5M PRN #25 tab 06/15/17 [Rx ] Atorvastatin [Lipitor] 80 mg PO DAILY 11/01/17 [History] Furosemide [Lasix] 20 mg PO DAILY 11/01/17 [History] INSULIN ASPART (NovoLOG) [NovoLOG (formulary)] See Protocol SQ AC-TID 04/06/18 [ History] Isosorbide Mononitrate [Imdur] 120 mg PO DAILY 04/06/18 [History] Latanoprost Ophth [Xalatan 0.005%] 1 drops BOTH EYES HS 04/06/18 [History] Repatha Push Tronic System 420 mg SQ Q30D 04/06/18 [History] Aspirin EC [Ecotrin Low Dose] 81 mg PO DAILY 09/06/18 [History] Cholecalciferol [Vitamin D3] 4,000 unit PO DAILY 09/06/18 [History] Metoprolol Tartrate [Lopressor] 100 mg PO DAILY 09/06/18 [History] Quinapril HCl [Accupril] 10 mg PO DAILY 09/06/18 [History] Ranolazine [Ranexa] 1,000 mg PO BID 09/06/18 [History] Verapamil HCl [Verelan Pm] 100 mg PO DAILY 09/06/18 [History] metFORMIN HCL 1,000 mg PO BID 09/06/18 [History] Follow up Appointment(s)/Referral(s): Raheem Frazier MD [STAFF PHYSICIAN] - 09/17/18 3:00 pm Anthony Arora DO [Primary Care Provider] - 1-2 days Activity/Diet/Wound Care/Special Instructions: DC home if okay with Cardiology Discharge Disposition: HOME SELF-CARE
[2018-09-07 16:46] LABS: Glucose,Whole Blood 202 mg/dL (75-99)
== END 2018-09-07 19:31 | disposition home or self-care (01) ==
LOC: EC 15:08 → 1SOBS 16:21
PROVIDERS: ADMIT Internal Medicine; ATTEND Internal Medicine
DX: I25.110 Atherosclerotic heart disease of native coronary artery with unstable angina pectoris (principal); T82.855A Stenosis of coronary artery stent, initial encounter; Y71.2 Prosthetic and other implants, materials and accessory cardiovascular devices associated with adverse incidents; D72.829 Elevated white blood cell count, unspecified; E11.65 Type 2 diabetes mellitus with hyperglycemia; E78.5 Hyperlipidemia, unspecified; E83.42 Hypomagnesemia; I10 Essential (primary) hypertension; M06.9 Rheumatoid arthritis, unspecified; M79.7 Fibromyalgia; Y83.1 Surgical operation with implant of artificial internal device as the cause of abnormal reaction of the patient, or of later complication, without mention of misadventure at the time of the procedure; Z79.02 Long term (current) use of antithrombotics/antiplatelets; Z79.4 Long term (current) use of insulin; Z79.82 Long term (current) use of aspirin; Z79.899 Other long term (current) drug therapy; Z80.8 Family history of malignant neoplasm of other organs or systems; Z82.49 Family history of ischemic heart disease and other diseases of the circulatory system; Z83.3 Family history of diabetes mellitus; Z90.710 Acquired absence of both cervix and uterus; Z98.51 Tubal ligation status
CPT/HCPCS: 96366; 96365; 99285; 36415; 93005; 93306; 93458; 80061; 80053; 83735 ×2; 84484 ×2; 85025; 85610; 85730; 83036; 71046; G0378 ×2; C1760; C1769 ×3; C1894; J2250; J2405; J2001; J3010; J3475

== ENCOUNTER → 2018-10-17 | Outpatient (CLI) | payer MEDICAID ==
[2018-10-17 22:23] LABS: Albumin 4.4 g/dL (3.80-4.90); Albumin/Globulin Ratio 2.32 (1.60-3.17); Anion Gap 8.9 mmol/L (4.00-12.00); Calcium 9.5 mg/dL (8.7-10.3); Carbon Dioxide 28.1 mmol/L (21.6-31.8); Globulin 1.9 g/dL (1.6-3.3); Potassium 3.8 mmol/L (3.5-5.5); Total Bilirubin 0.7 mg/dL (0.2-1.2); Total Protein 6.3 g/dL (6.2-8.2)
== END ==
LOC: LABWHC1 13:31
PROVIDERS: ATTEND Internal Medicine Endocrinology, Diabetes & Metabolism
DX: E11.65 Type 2 diabetes mellitus with hyperglycemia (principal)
CPT/HCPCS: 36415; 80053; 84681

== ENCOUNTER → 2019-02-07 | Outpatient (CLI) | payer MEDICAID ==
--- NOTE | 2019-02-08 09:09 | MM ---
Reason for exam: screening (asymptomatic). Last mammogram was performed 2 years and 1 month ago. History: Patient is postmenopausal. Excisional biopsy of the right breast, 1997. Physical Findings: A clinical breast exam by your physician is recommended on an annual basis and results should be correlated with mammographic findings. MG 3D Screening Mammo W/Cad Bilateral CC and MLO view(s) were taken. Prior study comparison: December 27, 2016, bilateral MG screening mammo w CAD. May 26, 2014, bilateral MG screening mammo w CAD. There are scattered fibroglandular densities. There is no discrete abnormality. No significant changes when compared with prior studies. ASSESSMENT: Negative, BI-RAD 1 RECOMMENDATION: Routine screening mammogram of both breasts in 1 year.
== END | disposition home or self-care (01) ==
LOC: RADMAMWWP 13:28
PROVIDERS: ATTEND Family Medicine
DX: Z12.31 Encounter for screening mammogram for malignant neoplasm of breast (principal)
CPT/HCPCS: 77063; 77067

== ENCOUNTER → 2019-04-29 | Outpatient (CLI) | payer MEDICAID ==
--- NOTE | 2019-04-30 08:41 | XR ---
EXAMINATION TYPE: XR cervical spine comp DATE OF EXAM: 04/29/2019 COMPARISON: NONE HISTORY: Pain TECHNIQUE: Four views are submitted. FINDINGS: The odontoid is intact. There are no compression deformities. The prevertebral soft tissue structur es are within normal limits. Loss of the normal cervical lordosis with 1 mm anterolisthesis of C4 on C5. Severe degenerative disc disease C5-C6 with posterior spondylosis and anterior spurring. IMPRESSION: 1. Reversal of normal cervical lordosis with severe degenerative disc disease C5-C6. Recommend MRI. R ight-sided foraminal encroachment suspected..
== END | disposition home or self-care (01) ==
LOC: RADXRMAIN 16:21
PROVIDERS: ATTEND Family Medicine
DX: M50.122 Cervical disc disorder at C5-C6 level with radiculopathy (principal)
CPT/HCPCS: 72050

== ENCOUNTER → 2019-05-15 | Outpatient (CLI) | payer MEDICAID ==
[2019-05-15 16:35] LABS: Basophils # (A) 0.1 k/uL (0-0.2); Basophils % (A) 1 %; Eosinophils # (A) 0.1 k/uL (0-0.7); Eosinophils % (A) 1 %; HCT 39.8 % (34.0-46.0); HGB 12.9 gm/dL (11.4-16.0); Lymphocytes # (A) 2.5 k/uL (1.0-4.8); Lymphocytes % (A) 24 %; MCH 30.1 pg (25.0-35.0); MCHC 32.4 g/dL (31.0-37.0); Mean Platelet Volume 6.1; Monocytes # (A) 0.4 k/uL (0-1.0); Monocytes % (A) 4 %; Neutrophils # (A) 7.2 k/uL (1.3-7.7); Neutrophils % (A) 69 %; Platelet Count 408 k/uL (150-450); RBC 4.28 m/uL (3.80-5.40); WBC 10.5 k/uL (3.8-10.6)
[2019-05-15 16:39] LABS: INR 0.9 (<1.2); Prothrombin Time 9.6 sec (9.0-12.0)
[2019-05-15 23:28] LABS: Anion Gap 5.7 mmol/L (4.00-12.00); Carbon Dioxide 28.3 mmol/L (21.6-31.8); Potassium 4.5 mmol/L (3.5-5.5)
== END | disposition home or self-care (01) ==
LOC: LABWHC1 15:46
PROVIDERS: ATTEND Orthopaedic Surgery
DX: Z01.812 Encounter for preprocedural laboratory examination (principal); G56.01 Carpal tunnel syndrome, right upper limb; Z79.01 Long term (current) use of anticoagulants
CPT/HCPCS: 36415; 80051; 85025; 85610

== ENCOUNTER → 2019-05-17 | Outpatient (CLI) | payer MEDICAID ==
--- NOTE | 2019-05-19 18:59 | XR ---
EXAMINATION TYPE: XR thoracic spine complete DATE OF EXAM: 05/17/2019 Comparison: None Clinical History: 54-year-old female M54.6 Pain in thoracic spine Findings: Dextro convex curvature of the midthoracic spine. Cholecystectomy clips. 12 rib bearing thoracic vert ebral bodies. All pedicles are visualized. Mild degenerative disc disease mid to lower thoracic spine . Alignment is maintained. Impression: Dextro convex scoliosis along the upper third thoracic spine. Mild degenerative disc disease mid to l ower thoracic spine. No vertebral compression collapse or malalignment.
== END | disposition home or self-care (01) ==
LOC: RADXRMAIN 15:53
PROVIDERS: ATTEND Family Medicine
DX: M51.34 Other intervertebral disc degeneration, thoracic region (principal); M41.84 Other forms of scoliosis, thoracic region
CPT/HCPCS: 72072

== ENCOUNTER → 2019-05-22 | Outpatient (CLI) | payer MEDICAID ==
--- NOTE | 2019-05-22 17:11 | MR ---
EXAMINATION TYPE: MR cervical spine wo con DATE OF EXAM: 05/22/2019 COMPARISON: 08/29/2012 HISTORY: Pain in neck into rt arm/fingers, Numbness CONTRAST: Performed utilizing 0 mL intravenous Gadavist gadolinium contrast. TECHNIQUE: Multiplanar multiecho imaging on a 3.0 [place] magnet is performed through the cervical spin e. FINDINGS: The craniovertebral junction is normal. Vertebral body alignment is normal. C7-T1: No focal disc herniation or significant disc bulge is evident. No spinal canal stenosis or n eural foraminal stenosis is present. C6-7: Broad-based disc bulge has mild to moderate anterior thecal sac compression. This comes in clos e approximation with the spinal cord. No spinal canal stenosis is present. Neural foramen are patent. . C5-6: Broad-based disc bulge has moderate anterior thecal sac flattening. No AP spinal canal stenosis present. No cord contact is evident. Uncovertebral joint hypertrophy is moderate right foraminal yony nosis.. C4-5: No focal disc herniation or significant disc bulge is evident. No spinal canal stenosis or marielena ral foraminal stenosis is present. C3-4: No focal disc herniation or significant disc bulge is evident. No spinal canal stenosis or marielena ral foraminal stenosis is present. C2-3: No focal disc herniation or significant disc bulge is evident. No spinal canal stenosis or marielena ral foraminal stenosis is present. IMPRESSIONS: 1. Broad-based disc bulge C5-6 C6-7 present previously, better visualized on the current study. This may have close approximation with the spinal cord at C6-7. No stenosis or cord deformity is evident. 2. Moderate right foraminal stenosis due to uncovertebral joint hypertrophy C5-6
== END | disposition home or self-care (01) ==
LOC: RADMRIMAIN 15:42
PROVIDERS: ATTEND Family Medicine
DX: M48.02 Spinal stenosis, cervical region (principal); M50.222 Other cervical disc displacement at C5-C6 level
CPT/HCPCS: 72141

== ENCOUNTER → 2019-05-28 | Day surgery (SDC) | payer MEDICAID ==
[2019-05-21 11:47] VITALS: BMI 41.7
--- NOTE | 2019-05-27 10:14 | HP ---
HISTORY AND PHYSICAL CHIEF COMPLAINT: Right hand pain and numbness. 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 It has worsened recently. She notes loss of manager science strength in addition to pain at night. She has been wearing braces. She has tried previous injections with only partial temporary relief. She has also tried medications. PAST MEDICAL HISTORY: Significant for type 2 diabetes, hypertension, and heart disease. PAST SURGICAL HISTORY: Significant for cholecystectomy, section, knee surgery, shoulder surgery, cardiac catheterization and multiple cardiac stent placements. CURRENT MEDICATIONS: 1. Accupril. 2. Aspirin. 3. Isosorbide mononitrate. 4. Lasix. 5. Lipitor. 6. Metformin. 7. Metoprolol. 8. Plavix. 9. Ranexa. 10.Verapamil. She has allergies to ZOCOR and PIOGLITAZONE. FAMILY HISTORY: Noncontributory. SOCIAL HISTORY: Negative. 16 POINT REVIEW OF SYSTEMS: Otherwise reviewed and is noncontributory. PHYSICAL EXAMINATION: The patient is approximately 5 foot 1, 217 pounds of endomorphic habitus. HEENT: Exam is nonfocal. Neck is supple. She is nontender about the right shoulder and elbow. On examination of the right wrist, she has a positive Tinel's over the carpal canal. Adductor pollicis brevis strength is 5-/5. There is minimal thenar atrophy. She has full digital range of motion. Light touch is diffusely diminished throughout the right digits. Previous EMG report for the right wrist at the carpal canal shows right median motor latency 6.4, sensory latency non-recordable. IMPRESSION: 1. Right carpal tunnel syndrome-symptomatic. 2. Lee-wvsyuds-xdisvchzd diabetes. 3. Heart disease on anticoagulation. RECOMMENDATIONS: I talked to the patient at length regarding her condition along with treatment options. At this point, she is quite symptomatic and opts to proceed with surgery. We will plan to proceed with right carpal tunnel release utilizing local anesthetic and IV sedation. We will likely allow her to reinstitute her anticoagulants after the procedure. Risks and benefits were discussed at length in layman's terms. MMODL / IJN: [id number] /
[~2019-05-28] MED LIST changes: -ALPRAZolam 0.25 MG TAB PO PRN; -ASPIRIN 325 MG TAB PO ONE; +BUPIVACAINE (PF) 0.25% 30 ML VIAL SQ ONE; +DEXAMETHASONE SOD PHOSPHATE 10 MG/ML 1 ML VIAL IV ONE; +HYDROcodone/APAP 7.5-325MG 1 EACH TAB PO ONE; +HYDROmorphone 0.5 MG/0.5 ML SYRINGE IVP PRN; +INSULIN ASPART (NovoLOG) 100 UNIT/ML VIAL SQ ONE; +LACTATED RINGERS 1,000 ML IV SCH; +LIDOCAINE 1% INJ 10MG/ML (20 ML MDV) ONE; +MIDAZOLAM 2 MG/2 ML VIAL IV PRN; +MIDAZOLAM 2 MG/2 ML VIAL ONE; -NITROGLYCERIN SL TABS 0.4 MG TAB SUBLINGUAL PRN; +ONDANSETRON 4 MG/2 ML VIAL IVP ONE; +PROPOFOL 10 MG/ML 20 ML VIAL IV ONE; +SCOPOLAMINE 1.5MG/72HR PATCH TRANSDERM ONE; -SODIUM CHLORIDE 0.9% 1,000 ML in EMPTY BAG 1 BAG IV ONE; +fentaNYL (PF) 50 MCG/ML 2 ML AMP ONE
[2019-05-28 13:44] VITALS: RESP 16; TEMP 97.6
[2019-05-28 13:44] LABS: Glucose,Whole Blood 230 mg/dL (75-99)
--- NOTE | 2019-05-28 15:04 | P.OP ---
Date of Procedure: 05/28/19 Preoperative Diagnosis: Right carpal tunnel syndromesymptomatic Postoperative Diagnosis: Same Procedure(s) Performed: Right carpal tunnel release Anesthesia: MAC, local Surgeon: Harshal Walters Estimated Blood Loss (ml): 1 Pathology: none sent Condition: stable Disposition: PACU Indications for Procedure: The patient's a 54-year-old female presents with progressive right hand pain and numbness secondary to level tunnel syndrome despite conservative measures. A discussion of the risks and benefits of operative intervention was made with patient. She opted to proceed with surgery. Operative risks to include infection, neurovascular injury, development of blood clots, possible incomplete resolution of symptoms, possible recurrence of symptoms and need for subsequent procedures was discussed. Informed consent was obtained. Operative Findings: As below Description of Procedure: The patient was brought to the operating room, and after induction of IV sedation the right upper extremity was prepped and draped in normal fashion. The proposed incision site was outlined skin marker in line with the radial aspect the fourth ray extending from the volar wrist crease distally 2-1/2 cm. One quarter percent plain Marcaine was injected into the proposed incision site. 9 mL was utilized. The tourniquet was inflated to 250 mmHg. The skin incision was then made. The skin was incised sharply. Subcutaneous tissues were divided sharply the superficial palmar fascia was identified and split in line with the skin incision. The transverse carpal ligament was identified and transected under direct visualization distally to level the palmar fat pad. Proximal was taken level of the volar wrist crease. A plane above and below the transverse carpal ligament was then bluntly developed with tenotomies. The confluence of the distal forearm fascia and the transverse carpal ligament was then transected under direct visualization proximally with the tines pointed in the ulnar direction. I felt this was adequate proximal release. Neural lysis was not performed. The wound was irrigated with normal saline. Electrocautery was used for hemostasis. The skin was reapproximated with simple 3-0 nylon sutures. A sterile dressing was applied. The tourniquet was deflated with less than 15 minutes total tourniquet time. Patient was awoken from sedation and transferred to the recovery room in good condition. Blood loss was estimated 1 mL. No complications were incurred. Sponge and needle counts were correct at the end the case.
[2019-05-28 15:13] LABS: Glucose,Whole Blood 222 mg/dL (75-99)
[2019-05-28 15:55] VITALS: BP 102/67; PULSE 72
== END | disposition home or self-care (01) ==
LOC: OR 13:12
PROVIDERS: ATTEND Orthopaedic Surgery
DX: G56.01 Carpal tunnel syndrome, right upper limb (principal); I10 Essential (primary) hypertension; I25.10 Atherosclerotic heart disease of native coronary artery without angina pectoris; E78.5 Hyperlipidemia, unspecified; E11.42 Type 2 diabetes mellitus with diabetic polyneuropathy; M06.9 Rheumatoid arthritis, unspecified; M79.7 Fibromyalgia; Z90.49 Acquired absence of other specified parts of digestive tract; Z95.5 Presence of coronary angioplasty implant and graft; Z79.84 Long term (current) use of oral hypoglycemic drugs; Z79.02 Long term (current) use of antithrombotics/antiplatelets; Z79.82 Long term (current) use of aspirin; Z79.899 Other long term (current) drug therapy
CPT/HCPCS: 64721; J2250; J0690; J2405; J2001; J3010; J2704

== ENCOUNTER 2019-08-29 13:23 | Observation (INO) | payer MEDICAID ==
[2019-08-29] MEDS ORDERED: NITROGLYCERIN SL TABS 0.4 MG TAB SUBLINGUAL STA (14:03)
[2019-08-29] MEDS ORDERED: ASPIRIN 81 MG PO STA (14:03)
[2019-08-29] MEDS ORDERED: NITROGLYCERIN OINT 1 INCH/GM PACKET TOPICAL STA (14:03)
[2019-08-29 14:21] LABS: Basophils % (A) 0 %; Eosinophils # (A) 0.1 k/uL (0-0.7); Eosinophils % (A) 1 %; HCT 43.4 % (34.0-46.0); HGB 14.8 gm/dL (11.4-16.0); Lymphocytes # (A) 2.6 k/uL (1.0-4.8); Lymphocytes % (A) 25 %; MCH 31.6 pg (25.0-35.0); MCHC 34.2 g/dL (31.0-37.0); MCV 92.3 fL (80.0-100.0); Monocytes # (A) 0.4 k/uL (0-1.0); Monocytes % (A) 4 %; Neutrophils # (A) 7.1 k/uL (1.3-7.7); Neutrophils % (A) 69 %; Platelet Count 372 k/uL (150-450); RDW 12.8 % (11.5-15.5); WBC 10.3 k/uL (3.8-10.6)
--- NOTE | 2019-08-29 14:22 | ED ---
General Adult HPI - General Chief complaint: Chest Pain Stated complaint: chest pain Time Seen by Provider: 08/29/19 13:25 Source: patient, RN notes reviewed, old records reviewed Mode of arrival: ambulatory Limitations: no limitations - History of Present Illness Initial comments: This is a 54-year-old female presents emergency department stating that she has a past medical history significant for a cardiac stents as well as diabetes hypertension high cholesterol. Patient states she's been having chest pain but he consistently over the last 2 weeks consistent with her cardiac pain that she has had the past per patient states she's also been short of breath especially with any exertion. Patient denies any radiation of pain or diaphoretic episo benjamin. Patient also denies any nausea. Patient denies any abdominal pain. Patient denies fever chills or cough per patient denies headache patient denies numbness weakness. Patient denies lightheadedness or dizziness. Patient denies any swelling to the legs or any calf tenderness. - Related Data Home Medications Medication Instructions Recorded Confirmed Atorvastatin [Lipitor] 80 mg PO DAILY 11/01/17 05/28/19 Furosemide [Lasix] 40 mg PO DAILY 11/01/17 05/28/19 Isosorbide Mononitrate [Imdur] 120 mg PO DAILY 04/06/18 05/28/19 Latanoprost Ophth [Xalatan 0.005%] 1 drops BOTH EYES HS 04/06/18 05/28/19 Repatha Push Tronic System 420 mg SQ Q30D 04/06/18 05/28/19 Aspirin EC [Ecotrin Low Dose] 81 mg PO DAILY 09/06/18 05/28/19 Metoprolol Tartrate [Lopressor] 100 mg PO DAILY 09/06/18 05/28/19 Quinapril HCl [Accupril] 10 mg PO DAILY 09/06/18 05/28/19 Ranolazine [Ranexa] 1,000 mg PO BID 09/06/18 05/28/19 Verapamil HCl [Verelan Pm] 100 mg PO DAILY 09/06/18 05/28/19 metFORMIN HCL 1,000 mg PO BID 09/06/18 05/28/19 Ergocalciferol [Vitamin D2] 50,000 unit PO Q7D 05/21/19 05/28/19 INSULIN LISPRO (For Pump) [humaLOG 0.01 units SQ-PUMP CONTINUOUS 05/21/19 05/28/19 (For Pump)] rOPINIRole HCL [Requip] 0.25 - 0.5 mg PO HS 05/21/19 05/28/19 Previous Rx's Medication Instructions Recorded Clopidogrel [Plavix] 75 mg PO DAILY #30 tab 06/15/17 Nitroglycerin Sl Tabs [Nitrostat] 0.4 mg SUBLINGUAL Q5M PRN #25 tab 06/15/17 Allergies Allergy/AdvReac Type Severity Reaction Status Date / Time pioglitazone [From Actos] Allergy Swelling Verified 08/29/19 13:29 simvastatin [From Zocor] AdvReac muscle Verified 08/29/19 13:29 spasms Review of Systems ROS Statement: Those systems with pertinent positive or pertinent negative responses have been documented in the HPI. ROS Other: All systems not noted in ROS Statement are negative. Past Medical History Past Medical History: Coronary Artery Disease (CAD), Chest Pain / Angina, Diabetes Mellitus, Fibromyalgia, Hyperlipidemia, Hypertension, Rheumatoid Arthritis (RA) Additional Past Medical History / Comment(s): occ. 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 History of Any Multi-Drug Resistant Organisms: None Reported Past Surgical History: Adenoidectomy, Back Surgery, Section, Cholecystectomy, Heart Catheterization, Heart Catheterization With Stent, Hysterectomy, Orthopedic Surgery, Tonsillectomy, Tubal Ligation Additional Past Surgical History / Comment(s): RIGHT SHOULDER ARTHROSCOPY, COLONOSCOPY, LOW BACK SURGERY WITH RODS/SCREWS, 8 heart stents Past Anesthesia/Blood Transfusion Reactions: No Reported Reaction Date of Last Stent Placement:: 10/2017 Past Psychological History: No Psychological Hx Reported Smoking Status: Never smoker Past Alcohol Use History: None Reported Past Drug Use History: None Reported - Past Family History Father Family Medical History: Cancer Additional Family Medical History / Comment(s): Brain CA Daughter(s) Family Medical History: Diabetes Mellitus Additional Family Medical History / Comment(s): Patient has 2 sisters with no significant past medical history Sister(s) Family Medical History: Thyroid Disorder Mother Family Medical History: Hypertension, Renal Disease Additional Family Medical History / Comment(s): MOTHER OF BRIGHT'S DX AT THE AGE OF 24 YRS. General Exam - General Exam Comments Initial Comments: GENERAL: Patient is well-developed and well-nourished. Patient is nontoxic and well- hydrated and is in mild distress. ENT: Neck is soft and supple. No significant lymphadenopathy is noted. Oropharynx is clear. Moist mucous membranes. Neck has full range of motion without eliciting any pain. EYES: The sclera were anicteric and conjunctiva were pink and moist. Extraocular movements were intact and pupils were equal round and reactive to light. Eyelids were unremarkable. PULMONARY: Unlabored respirations. Good breath sounds bilaterally. No audible rales rhonchi or wheezing was noted. CARDIOVASCULAR: There is a regular rate and rhythm without any murmurs gallops or rubs. ABDOMEN: Soft and nontender with normal bowel sounds. SKIN: Skin is clear with no lesions or rashes and otherwise unremarkable. NEUROLOGIC: Patient is alert and oriented x3. Cranial nerves II through XII are grossly intact. Motor and sensory are also intact. Normal speech, volume and content. Symmetrical smile. MUSCULOSKELETAL: Normal extremities with adequate strength and full range of motion. LYMPHATICS: No significant lymphadenopathy is noted PSYCHIATRIC: Normal psychiatric evaluation. Limitations: no limitations Course Vital Signs 08/29/19 08/29/19 13:28 13:59 Temperature 97.8 F Pulse Rate 94 Pulse Rate [ 95 Test Driver ] Respiratory 22 Rate Blood Pressure 136/84 O2 Sat by Pulse 99 Oximetry Medical Decision Making - Medical Decision Making EKG shows normal sinus rhythm at 99 bpm OH interval is on a 44 QRS is 80 QT in terval 358 QTC is 459. Patient's EKG shows no ST segment elevation or depression Chest x-ray shows no acute abnormality I started the patient heparin because of her unstable angina symptoms. I spoke with Dr. Bocanegra he agreed to admit the patient admitted the patient wrote admitting orders I continued heparin and aspirin and Nitropaste on the floor. I consult to cardiology. - Lab Data Result diagrams: 08/29/19 13:55 08/29/19 13:55 Lab Results 08/29/19 08/29/19 08/29/19 Range/Units 13:55 13:55 13:55 WBC 10.3 (3.8-10.6) k/uL RBC 4.70 (3.80-5.40) m/uL Hgb 14.8 (11.4-16.0) gm/dL Hct 43.4 (34.0-46.0) % MCV 92.3 (80.0-100.0) fL MCH 31.6 (25.0-35.0) pg MCHC 34.2 (31.0-37.0) g/dL RDW 12.8 (11.5-15.5) % Plt Count 372 (150-450) k/uL Neutrophils % 69 % Lymphocytes % 25 % Monocytes % 4 % Eosinophils % 1 % Basophils % 0 % Neutrophils # 7.1 (1.3-7.7) k/uL Lymphocytes # 2.6 (1.0-4.8) k/uL Monocytes # 0.4 (0-1.0) k/uL Eosinophils # 0.1 (0-0.7) k/uL Basophils # 0.0 (0-0.2) k/uL PT (9.0-12.0) sec INR (<1.2) APTT (22.0-30.0) sec Sodium 133 L (137-145) mmol/L Potassium 4.1 (3.5-5.1) mmol/L Chloride 98 (98-107) mmol/L Carbon Dioxide 24 (22-30) mmol/L Anion Gap 11 mmol/L BUN 20 H (7-17) mg/dL Creatinine 0.61 (0.52-1.04) mg/dL Est GFR (CKD-EPI)AfAm >90 (>60 ml/min/1.73 sqM) Est GFR (CKD-EPI)NonAf >90 (>60 ml/min/1.73 sqM) Glucose 346 H (74-99) mg/dL Calcium 9.6 (8.4-10.2) mg/dL Magnesium 1.6 (1.6-2.3) mg/dL Total Bilirubin 1.0 (0.2-1.3) mg/dL AST 21 (14-36) U/L ALT 17 (4-34) U/L Alkaline Phosphatase 128 H (38-126) U/L Troponin I (0.000-0.034) ng/mL NT-Pro-B Natriuret Pep 209 pg/mL Total Protein 6.9 (6.3-8.2) g/dL Albumin 4.3 (3.5-5.0) g/dL 08/29/19 08/29/19 Range/Units 13:55 13:55 WBC (3.8-10.6) k/uL RBC (3.80-5.40) m/uL Hgb (11.4-16.0) gm/dL Hct (34.0-46.0) % MCV (80.0-100.0) fL MCH (25.0-35.0) pg MCHC (31.0-37.0) g/dL RDW (11.5-15.5) % Plt Count (150-450) k/uL Neutrophils % % Lymphocytes % % Monocytes % % Eosinophils % % Basophils % % Neutrophils # (1.3-7.7) k/uL Lymphocytes # (1.0-4.8) k/uL Monocytes # (0-1.0) k/uL Eosinophils # (0-0.7) k/uL Basophils # (0-0.2) k/uL PT 9.4 (9.0-12.0) sec INR 0.9 (<1.2) APTT 20.3 L (22.0-30.0) sec Sodium (137-145) mmol/L Potassium (3.5-5.1) mmol/L Chloride (98-107) mmol/L Carbon Dioxide (22-30) mmol/L Anion Gap mmol/L BUN (7-17) mg/dL Creatinine (0.52-1.04) mg/dL Est GFR (CKD-EPI)AfAm (>60 ml/min/1.73 sqM) Est GFR (CKD-EPI)NonAf (>60 ml/min/1.73 sqM) Glucose (74-99) mg/dL Calcium (8.4-10.2) mg/dL Magnesium (1.6-2.3) mg/dL Total Bilirubin (0.2-1.3) mg/dL AST (14-36) U/L ALT (4-34) U/L Alkaline Phosphatase (38-126) U/L Troponin I <0.012 (0.000-0.034) ng/mL NT-Pro-B Natriuret Pep pg/mL Total Protein (6.3-8.2) g/dL Albumin (3.5-5.0) g/dL Critical Care Time Critical Care Time: Yes Total Critical Care Time: 35 Disposition Clinical Impression: Unstable angina pectoris Disposition: ADMITTED IP TO THIS HOSP Referrals: Anthony Arora DO [Primary Care Provider] - 1-2 days Time of Disposition: 15:22
--- NOTE | 2019-08-29 14:24 | XR ---
EXAMINATION TYPE: XR chest 2V DATE OF EXAM: 08/29/2019 COMPARISON: 09/06/2018 HISTORY: Chest pain TECHNIQUE: Frontal and lateral views of the chest are obtained. FINDINGS: There is no focal air space opacity. No evidence for pneumothorax. No pleural effusion. The cardiac silhouette size is within normal limits. The osseous structures are grossly intact. IMPRESSION: 1. No acute cardiopulmonary process.
[2019-08-29 14:39] LABS: INR 0.9 (<1.2); Partial Thromboplastin Time 20.3 sec (22.0-30.0); Prothrombin Time 9.4 sec (9.0-12.0)
[2019-08-29 14:48] LABS: ALT 17 U/L (4-34); AST 21 U/L (14-36); African American GFR (CKD) >90 (>60 ml/min/1.73 sqM); Albumin 4.3 g/dL (3.5-5.0); Alkaline Phosphatase 128 U/L (38-126); Anion Gap 11 mmol/L; Blood Urea Nitrogen 20 mg/dL (7-17); Calcium 9.6 mg/dL (8.4-10.2); Carbon Dioxide 24 mmol/L (22-30); Chloride 98 mmol/L (98-107); Glucose 346 mg/dL (74-99); Magnesium 1.6 mg/dL (1.6-2.3); Non-African American GFR(CKD) >90 (>60 ml/min/1.73 sqM); Potassium 4.1 mmol/L (3.5-5.1); Sodium 133 mmol/L (137-145); Total Protein 6.9 g/dL (6.3-8.2)
[2019-08-29] MEDS ORDERED: HEPARIN SODIUM,PORCINE 5,000 UNIT/ML 1 ML VIAL IV ONE (15:16)
[2019-08-29] MEDS: HEPARIN SOD,PORK IN 0.45% NACL 25,000 UNIT in 0.45% NACL 1 250ML.BAG IV SCH (15:43)
[2019-08-29] MEDS ORDERED: NITROGLYCERIN SL TABS 0.4 MG TAB SUBLINGUAL PRN (15:47)
[2019-08-29 17:00] LABS: Glucose,Whole Blood 260 mg/dL (75-99)
[2019-08-29] MEDS: INSULIN ASPART (NovoLOG) 100 UNIT/ML VIAL SQ SCH ×2 (17:39→20:37)
[2019-08-29] MEDS: NITROGLYCERIN OINT 1 INCH/GM PACKET TOPICAL SCH (18:29)
[2019-08-29 20:28] LABS: Glucose,Whole Blood 260 mg/dL (75-99)
[2019-08-29] MEDS: RANOLAZINE 500 MG TAB.ER.12H PO SCH (20:37)
[2019-08-29] MEDS ORDERED: INSULIN DETEMIR (LEVEMIR) 100 UNIT/ML SYR SQ SCH (21:00)
[2019-08-29] MEDS ORDERED: LATANOPROST 0.005% OPHTH DROPS 2.5 ML BTL BOTH EYES SCH (21:00)
[2019-08-29] MEDS ORDERED: VERAPAMIL HCL 100 MG PO SCH (21:00)
--- NOTE | 2019-08-29 21:42 | P.HPIM ---
History of Present Illness H&P Date: 08/29/19 Chief Complaint: Chest pain Patient is a 54-year-old female with a known history of coronary artery disease status post stent placement 8 and last stent about 2 years ago, hypertension, diabetes type 2 insulin-dependent, rheumatoid arthritis and chronic back pain came to ER with the complaints of chest pain and pressure, mainly mid retrosternal and sometimes radiate into the back and started while she was at work. Denied any radiation of the pain. Patient does have exertional short of breath with heaviness when she walks some distance. Patient had episode of vomiting in the morning. And felt like cold sweats. Denied any headache or dizziness or lightheadedness. No leg swelling. No cough or sputum production. Denied any recent illnesses. No PND or orthopnea. Patient had last cardiac catheterization done about a year ago. EKG showed normal sinus rhythm. Chest x-ray showed no acute cardiopulmonary process. Troponin 1 negative. BNP 209 Blood sugar 346 on admission. Alk phos 128 normal high is 126. Patient does have history of cholecystectomy. Review of Systems Constitutional: Patient denies any fever or chills . No generalized weakness or weight loss. Abdomen: Patient denied nausea vomiting and diarrhea and abdominal pain. Cardiovascular: Chest pain and exertional short of breath no palpitations. Respiratory: patient denied any cough is from production. No shortness of breath Neurologic: Patient denied any numbness or tingling headache. Musculoskeletal: Patient denies any complaints of joint swelling or deformity. Skin: Negative Psychiatric: Negative Endocrine: No heat or cold intolerance. No recent weight gain. Genitourinary: No dysuria or hematuria. All other 14 point ROS negative except the above Past Medical History Past Medical History: Coronary Artery Disease (CAD), Chest Pain / Angina, Diabetes Mellitus, Fibromyalgia, Hyperlipidemia, Hypertension, Rheumatoid Arthritis (RA) Additional Past Medical History / Comment(s): occ. 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 History of Any Multi-Drug Resistant Organisms: None Reported Past Surgical History: Adenoidectomy, Back Surgery, Section, Cholecystectomy, Heart Catheterization, Heart Catheterization With Stent, Hysterectomy, Orthopedic Surgery, Tonsillectomy, Tubal Ligation Additional Past Surgical History / Comment(s): RIGHT SHOULDER ARTHROSCOPY, COLONOSCOPY, LOW BACK SURGERY WITH RODS/SCREWS, 8 heart stents, Right carpal tunnel Past Anesthesia/Blood Transfusion Reactions: No Reported Reaction Date of Last Stent Placement:: 10/2017 Past Psychological History: No Psychological Hx Reported Additional Psychological History / Comment(s): . Smoking Status: Never smoker Past Alcohol Use History: None Reported Past Drug Use History: None Reported - Past Family History Father Family Medical History: Cancer Additional Family Medical History / Comment(s): Brain CA Daughter(s) Family Medical History: Diabetes Mellitus Additional Family Medical History / Comment(s): Patient has 2 sisters with no significant past medical history Sister(s) Family Medical History: Thyroid Disorder Mother Family Medical History: Hypertension, Renal Disease Additional Family Medical History / Comment(s): brights disease Medications and Allergies Home Medications Medication Instructions Recorded Confirmed Type Clopidogrel [Plavix] 75 mg PO DAILY #30 tab 06/15/17 08/29/19 Rx Atorvastatin [Lipitor] 80 mg PO DAILY 11/01/17 08/29/19 History Furosemide [Lasix] 40 mg PO DAILY 11/01/17 08/29/19 History Isosorbide Mononitrate [Imdur] 120 mg PO DAILY 04/06/18 08/29/19 History Latanoprost Ophth [Xalatan 0.005%] 1 drops BOTH EYES HS 04/06/18 08/29/19 History Aspirin EC [Ecotrin Low Dose] 81 mg PO DAILY 09/06/18 08/29/19 History Quinapril HCl [Accupril] 10 mg PO DAILY 09/06/18 08/29/19 History Ranolazine [Ranexa] 1,000 mg PO BID 09/06/18 08/29/19 History Verapamil HCl [Verelan Pm] 100 mg PO HS 09/06/18 08/29/19 History Ergocalciferol [Vitamin D2] 50,000 unit PO FR 05/21/19 08/29/19 History rOPINIRole HCL [Requip] 0.25 mg PO HS 05/21/19 08/29/19 History Evolocumab [Repatha Pushtronex] 420 mg SQ Q30D 08/29/19 08/29/19 History INSULIN LISPRO (humaLOG) [humaLOG] See Protocol SQ AC-TID 08/29/19 08/29/19 History Insulin Glargine [Lantus] 60 unit SQ HS 08/29/19 08/29/19 History Metoprolol Succinate (ER) [Toprol 100 mg PO DAILY 08/29/19 08/29/19 History Xl] Semaglutide [Ozempic] 0.5 mg SQ TU 08/29/19 08/29/19 History metFORMIN HCL [Glucophage] 850 mg PO BID 08/29/19 08/29/19 History Allergies Allergy/AdvReac Type Severity Reaction Status Date / Time pioglitazone [From Actos] Allergy Swelling Verified 08/29/19 16:07 simvastatin [From Zocor] AdvReac muscle Verified 08/29/19 16:07 spasms Physical Exam Vitals: Vital Signs Temp Pulse Pulse Pulse Resp BP BP 08/29/19 19:15 95 16 08/29/19 17:07 98.1 F 83 18 141/85 08/29/19 16:52 98.0 F 93 18 156/89 08/29/19 13:59 95 08/29/19 13:28 97.8 F 94 22 136/84 Pulse Ox 08/29/19 19:15 08/29/19 17:07 97 08/29/19 16:52 96 08/29/19 13:59 08/29/19 13:28 99 Intake and Output 08/29/19 08/29/19 08/29/19 06:59 14:59 22:59 Other: Weight 93.894 kg 93.894 kg PHYSICAL EXAMINATION: Patient is lying in the bed comfortably, no acute distress, awake alert and oriented.. HEENT: Normocephalic. Neck is supple. Pupils reactive. Nostrils clear. Oral cavity is moist. Ears reveal no drainage. Neck reveals no JVD, carotid bruits, or thyromegaly. CHEST EXAMINATION: Trachea is central. Symmetrical expansion. Lung booker clear to auscultation and percussion. CARDIAC: Normal S1, S2 with no gallops. No murmurs ABDOMEN: Soft. Bowel sounds normal. No organomegaly. No abdominal bruits. Extremities: reveal no edema. No clubbing or cyanosis Neurologically awake, alert, oriented x3 with well-coordinated movements. No focal deficits noted Skin: No rash or skin lesions. Psychiatric: Coperative. Nonsuicidal Musculoskeletal: No joint swelling or deformity. Normal range of motion. Results CBC & Chem 7: 08/29/19 13:55 08/29/19 13:55 Labs: Abnormal Lab Results - Last 24 Hours (Table) 08/29/19 08/29/19 08/29/19 Range/Units 13:55 13:55 16:59 APTT 20.3 L (22.0-30.0) sec Sodium 133 L (137-145) mmol/L BUN 20 H (7-17) mg/dL Glucose 346 H (74-99) mg/dL POC Glucose (mg/dL) 260 H (75-99) mg/dL Alkaline Phosphatase 128 H (38-126) U/L 08/29/19 Range/Units 20:22 APTT (22.0-30.0) sec Sodium (137-145) mmol/L BUN (7-17) mg/dL Glucose (74-99) mg/dL POC Glucose (mg/dL) 260 H (75-99) mg/dL Alkaline Phosphatase (38-126) U/L Thrombosis Risk Factor Assmnt - DVT/VTE Prophylaxis DVT/VTE Prophylaxis: Pharmacologic Prophylaxis ordered - Choose All That Apply Any of the Below Risk Factors Present?: Yes Each Factor Represents 1 point: Age 41-60 years, Obesity (BMI >25) Other Risk Factors: No Other congenital or acquired thrombophilia - If yes, enter type in comment: No Thrombosis Risk Factor Assessment Total Risk Factor Score: 2 Thrombosis Risk Factor Assessment Level: Low Risk Assessment and Plan Assessment: Chest pain possible unstable angina. Known history of significant coronary artery disease. Hyperglycemia with uncontrolled diabetes type 2 insulin-dependent Coronary artery disease with history of stent placement 8 Hypertension Hyperlipidemia Fibromyalgia Rheumatoid arthritis Chronic low back pain with right-sided sciatica Morbid obesity with BMI 39.1 No prior history of smoking DVT prophylaxis. Patient is currently on heparin drip. Plan: Patient will be continued on telemetry monitoring. Serial EKG and troponins. Continue with heparin drip and continue with home medications including aspirin statins and beta blockers. Insulin sliding scale and continue with insulin home regimen and follow closely. Cardiology was consulted. Further recommendations based on the clinical course. Time with Patient: Greater than 30
[2019-08-29 23:47] VITALS: RESP 18
[2019-08-30] MEDS: NITROGLYCERIN OINT 1 INCH/GM PACKET TOPICAL SCH ×2 (00:59→05:05)
[2019-08-30 06:43] LABS: Cholesterol 220 mg/dL (<200); HDL Cholesterol 57 mg/dL (40-60); LDL Cholesterol,Calculated 126 mg/dL (0-99); Triglycerides 187 mg/dL (<150)
[2019-08-30 06:46] LABS: Glucose,Whole Blood 169 mg/dL (75-99)
[2019-08-30] MEDS ORDERED: HEPARIN SODIUM,PORCINE 5,000 UNIT/ML 1 ML VIAL IV STA (06:54)
[2019-08-30] MEDS: INSULIN ASPART (NovoLOG) 100 UNIT/ML VIAL SQ SCH ×2 (08:21→12:01)
[2019-08-30] MEDS: HEPARIN SOD,PORK IN 0.45% NACL 25,000 UNIT in 0.45% NACL 1 250ML.BAG IV SCH (08:23)
[2019-08-30] MEDS ORDERED: ATORVASTATIN 80 MG TAB PO SCH (09:00)
[2019-08-30] MEDS ORDERED: ISOSORBIDE MONONITRATE ER 60 MG TAB.ER.24H PO SCH (09:00)
[2019-08-30] MEDS ORDERED: ASPIRIN 325 MG TAB PO SCH (09:00)
[2019-08-30] MEDS ORDERED: CLOPIDOGREL 75 MG TAB PO SCH (09:00)
[2019-08-30] MEDS ORDERED: LISINOPRIL 10 MG TAB PO SCH (09:00)
[2019-08-30] MEDS ORDERED: METOPROLOL SUCCINATE (ER) 100 MG TAB.ER.24H PO SCH (09:00)
[2019-08-30] MEDS ORDERED: ASPIRIN 81 MG PO SCH (09:00)
--- NOTE | 2019-08-30 10:07 | P.CRDCN ---
History of Present Illness History of present illness: HISTORY OF PRESENTING ILLNESS This is a pleasant 54-year-old female past medical history significant for coronary artery disease status post multiple PCI's, hypertension, dyslipide paul, diabetes mellitus and fibromyalgia. She follows in the office with Dr. Frazier. We have been asked to see in consultation for chest pain. She is seen and examined sitting up in bed in no acute distress. She states yesterday while at work she was experiencing chest discomfort and shortness of breath while walking around. She works as a nurse at [employer]. Her coworkers advised her to sit down and rest. When she did that the shortness of breath did improve. However she continued to have a pressure in the chest in the midsternal region. For this reason she came to the hospital for further evaluation. On arrival EKG was obtained revealing sinus mechanism with no acute ST or T wave abnormalities noted. She was given nitroglycerin and her symptoms improved. She saw Dr. Frazier in the office last week for similar type symptoms and he scheduled her for a stress echocardiogram that was scheduled for of next week. Chest x-ray negative for an acute cardiopulmonary process. Laboratory data reviewed, CBC unremarkable, sodium 133, potassium 4.1, creatinine 0.61, magnesium 1.6, cardiac enzymes negative 3, NT proBNP 209, LDL 126. Currently maintained on aspirin 81 mg daily, Plavix 75 mg daily, atorvastatin 80 mg daily, Lasix 40 mg daily, Imdur 120 mg daily, Toprol 100 mg daily, quinapril 10 mg daily, Ranexa 1000 mg twice a day and verapamil 100 mg at bedtime. She also is on repatha 420 mg monthly however has not been taking for the last 3 months due to insurance cost. She underwent cardiac catheterization August 2018 revealing patent stents in the RCA and circumflex with mild in-stent restenosis of the LAD. Most recent echocardiogram obtained August 2018 revealed preserved LV systolic function with ejection fraction 55-60%. REVIEW OF SYSTEMS At the time of my exam: CONSTITUTIONAL: Denies fever or chills. CARDIOVASCULAR: Denies chest pain, shortness of breath, orthopnea, PND or palpitations. RESPIRATORY: Denies cough. GASTROINTESTINAL: Denies abdominal pain, diarrhea, constipation, nausea or vomiting. MUSCULOSKELETAL: Denies myalgias. NEUROLOGIC: Denies numbness, tingling or weakness. ENDOCRINE: Denies fatigue, weight change, polydipsia or polyurina. GENITOURINARY: Denies burning, hematuria or urgency with micturation. HEMATOLOGIC: Denies history of anemia or bleeding. PHYSICAL EXAMINATION Blood pressure 132/76 heart rate 85 afebrile and maintaining oxygen saturation on room air. CONSTITUTIONAL: No apparent distress. HEENT: Head is normocephalic. Pupils are equal, round. Sclerae anicteric. Mucous membranes of the mouth are moist. No JVD. No carotid bruit. CHEST EXAMINATION: Lungs are clear to auscultation. No chest wall tenderness is noted on palpation or with deep breathing. HEART EXAMINATION: Regular rate and rhythm. S1, S2 heard. No murmurs, gallops or rub. ABDOMEN: Soft, nontender. Positive bowel sounds. EXTREMITIES: 2+ peripheral pulses, no lower extremity edema and no calf tenderness. NEUROLOGIC EXAMINATION: Patient is awake, alert and oriented x3. ASSESSMENT Precordial chest pain Coronary artery disease status post multiple PCI's Hypertension Dyslipidemia Diabetes mellitus Fibromyalgia Obesity, BMI 39 PLAN An acute coronary event has been ruled out. Discontinue heparin infusion and Nitropaste. Recommend proceeding with stress echocardiogram as previously recommended by Dr. Frazier. If any abnormality is seen on the testing we will proceed with coronary angiography. Repeat full 2-D echocardiogram and Doppler study to assess cardiac structure and function. Thank you kindly for this consultation. Nurse Practitioner note has been reviewed, I agree with a documented findings and plan of care. Patient was seen and examined. Past Medical History Past Medical History: Coronary Artery Disease (CAD), Chest Pain / Angina, Diabetes Mellitus, Fibromyalgia, Hyperlipidemia, Hypertension, Rheumatoid Arthritis (RA) Additional Past Medical History / Comment(s): occ. 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 History of Any Multi-Drug Resistant Organisms: None Reported Past Surgical History: Adenoidectomy, Back Surgery, Section, Cholecystectomy, Heart Catheterization, Heart Catheterization With Stent, Hysterectomy, Orthopedic Surgery, Tonsillectomy, Tubal Ligation Additional Past Surgical History / Comment(s): RIGHT SHOULDER ARTHROSCOPY, COLONOSCOPY, LOW BACK SURGERY WITH RODS/SCREWS, 8 heart stents, Right carpal tunnel Past Anesthesia/Blood Transfusion Reactions: No Reported Reaction Date of Last Stent Placement:: 10/2017 Past Psychological History: No Psychological Hx Reported Additional Psychological History / Comment(s): . Smoking Status: Never smoker Past Alcohol Use History: None Reported Past Drug Use History: None Reported - Past Family History Father Family Medical History: Cancer Additional Family Medical History / Comment(s): Brain CA Daughter(s) Family Medical History: Diabetes Mellitus Additional Family Medical History / Comment(s): Patient has 2 sisters with no significant past medical history Sister(s) Family Medical History: Thyroid Disorder Mother Family Medical History: Hypertension, Renal Disease Additional Family Medical History / Comment(s): brights disease Medications and Allergies Home Medications Medication Instructions Recorded Confirmed Type Clopidogrel [Plavix] 75 mg PO DAILY #30 tab 06/15/17 08/29/19 Rx Atorvastatin [Lipitor] 80 mg PO DAILY 11/01/17 08/29/19 History Furosemide [Lasix] 40 mg PO DAILY 11/01/17 08/29/19 History Isosorbide Mononitrate [Imdur] 120 mg PO DAILY 04/06/18 08/29/19 History Latanoprost Ophth [Xalatan 0.005%] 1 drops BOTH EYES HS 04/06/18 08/29/19 History Aspirin EC [Ecotrin Low Dose] 81 mg PO DAILY 09/06/18 08/29/19 History Quinapril HCl [Accupril] 10 mg PO DAILY 09/06/18 08/29/19 History Ranolazine [Ranexa] 1,000 mg PO BID 09/06/18 08/29/19 History Verapamil HCl [Verelan Pm] 100 mg PO HS 09/06/18 08/29/19 History Ergocalciferol [Vitamin D2] 50,000 unit PO FR 05/21/19 08/29/19 History rOPINIRole HCL [Requip] 0.25 mg PO HS 05/21/19 08/29/19 History Evolocumab [Repatha Pushtronex] 420 mg SQ Q30D 08/29/19 08/29/19 History INSULIN LISPRO (humaLOG) [humaLOG] See Protocol SQ AC-TID 08/29/19 08/29/19 History Insulin Glargine [Lantus] 60 unit SQ HS 08/29/19 08/29/19 History Metoprolol Succinate (ER) [Toprol 100 mg PO DAILY 08/29/19 08/29/19 History Xl] Semaglutide [Ozempic] 0.5 mg SQ TU 08/29/19 08/29/19 History metFORMIN HCL [Glucophage] 850 mg PO BID 08/29/19 08/29/19 History Allergies Allergy/AdvReac Type Severity Reaction Status Date / Time pioglitazone [From Actos] Allergy Swelling Verified 08/29/19 16:07 simvastatin [From Zocor] AdvReac muscle Verified 08/29/19 16:07 spasms Physical Exam Vitals: Vital Signs Temp Pulse Pulse Pulse Resp BP BP 08/30/19 06:29 97.9 F 92 18 132/76 08/30/19 04:00 97.7 F 85 85 18 107/69 08/29/19 23:46 97.9 F 93 18 116/69 08/29/19 23:30 85 18 08/29/19 19:15 95 16 08/29/19 17:07 98.1 F 83 18 141/85 08/29/19 16:52 98.0 F 93 18 156/89 08/29/19 13:59 95 08/29/19 13:28 97.8 F 94 22 136/84 Pulse Ox 08/30/19 06:29 97 08/30/19 04:00 96 08/29/19 23:46 95 08/29/19 23:30 08/29/19 19:15 08/29/19 17:07 97 08/29/19 16:52 96 08/29/19 13:59 08/29/19 13:28 99 Intake and Output 08/29/19 08/30/19 08/30/19 22:59 06:59 14:59 Other: # Voids 1 Weight 93.894 kg Results 08/29/19 13:55 08/29/19 13:55 Cardiac Enzymes 08/29/19 08/29/19 08/29/19 Range/Units 13:55 13:55 20:17 AST 21 (14-36) U/L Troponin I <0.012 <0.012 (0.000-0.034) ng/mL 08/30/19 Range/Units 01:55 AST (14-36) U/L Troponin I <0.012 (0.000-0.034) ng/mL Coagulation 08/29/19 08/29/19 08/30/19 Range/Units 13:55 21:35 05:49 PT 9.4 (9.0-12.0) sec APTT 20.3 L 47.8 H 41.1 H (22.0-30.0) sec Lipids 08/30/19 Range/Units 05:49 Triglycerides 187 H (<150) mg/dL Cholesterol 220 H (<200) mg/dL HDL Cholesterol 57 (40-60) mg/dL CBC 08/29/19 Range/Units 13:55 WBC 10.3 (3.8-10.6) k/uL RBC 4.70 (3.80-5.40) m/uL Hgb 14.8 (11.4-16.0) gm/dL Hct 43.4 (34.0-46.0) % Plt Count 372 (150-450) k/uL Comprehensive Metabolic Panel 08/29/19 Range/Units 13:55 Sodium 133 L (137-145) mmol/L Potassium 4.1 (3.5-5.1) mmol/L Chloride 98 (98-107) mmol/L Carbon Dioxide 24 (22-30) mmol/L BUN 20 H (7-17) mg/dL Creatinine 0.61 (0.52-1.04) mg/dL Glucose 346 H (74-99) mg/dL Calcium 9.6 (8.4-10.2) mg/dL AST 21 (14-36) U/L ALT 17 (4-34) U/L Alkaline Phosphatase 128 H (38-126) U/L Total Protein 6.9 (6.3-8.2) g/dL Albumin 4.3 (3.5-5.0) g/dL Current Medications Generic Name Dose Route Start Last Admin Trade Name Freq PRN Reason Stop Dose Admin Aspirin 81 mg 08/30/19 09:00 Aspirin PO DAILY [facility] Atorvastatin Calcium 80 mg 08/30/19 09:00 Lipitor PO DAILY [facility] Clopidogrel Bisulfate 75 mg 08/30/19 09:00 Plavix PO DAILY [facility] Heparin Sodium/Sodium Chloride 250 mls @ 10 mls/hr 08/29/19 15:30 08/29/19 15:43 25,000 unit/ Sodium Chloride IV 10.65 units/kg/hr .Q24H KELLY 10 mls/hr Administration Protocol 10.65 UNITS/KG/HR Insulin Aspart 0 unit 08/29/19 17:30 08/29/19 20:37 Novolog SQ 4 unit ACHS [facility] Administration Protocol Insulin Detemir 60 unit 08/29/19 21:00 08/29/19 20:38 Levemir SQ 60 unit HS [facility] Administration Isosorbide Mononitrate 120 mg 08/30/19 09:00 Imdur PO DAILY [facility] Latanoprost 1 drops 08/29/19 21:00 08/29/19 20:37 Xalatan 0.005% BOTH EYES 1 drops HS [facility] Administration Lisinopril 10 mg 08/30/19 09:00 Zestril PO DAILY [facility] Metoprolol Succinate 100 mg 08/30/19 09:00 Toprol Xl PO DAILY [facility] Nitroglycerin 0.4 mg 08/29/19 15:47 Nitrostat SUBLINGUAL Q5M PRN Chest Pain Nitroglycerin 1 inch 08/29/19 18:00 08/30/19 05:05 Nitro-Bid Oint TOPICAL Not Given Q6HR [facility] Patient's Own Med ( 100 mg 08/29/19 21:00 08/29/19 20:45 Verapamil Hcl [ PO Not Given Verelan Pm] 100 Mg) [facility] Ranolazine 1,000 mg 08/29/19 21:00 08/29/19 20:37 Ranexa PO 1,000 mg BID [facility] Administration Ropinirole HCl 0.25 mg 08/29/19 21:00 08/29/19 20:36 Requip PO 0.25 mg HS [facility] Administration Intake and Output 08/29/19 08/30/19 08/30/19 22:59 06:59 14:59 Other: # Voids 1 Weight 93.894 kg 08/29/19 13:55 08/29/19 13:55
[2019-08-30] MEDS: RANOLAZINE 500 MG TAB.ER.12H PO SCH (10:54)
[2019-08-30 11:56] LABS: Glucose,Whole Blood 197 mg/dL (75-99)
--- NOTE | 2019-08-30 12:07 | ECHOS ---
STRESS ECHOCARDIOGRAM DATE OF SERVICE: 08/30/2019 INDICATIONS: Chest pain. MEDICATIONS: BASELINE HEART RATE: 91 BASELINE BLOOD PRESSURE: 154/91 MAXIMUM HEART RATE: 153 MAXIMUM BLOOD PRESSURE: 209/98 85% MPHR: 142 100% MPHR: 167 METS: 7.7 MAXIMUM STAGE REACHED: III TOTAL EXERCISE TIME: 6-1/2 minutes CLINICAL INFORMATION: Baseline EKG revealed normal sinus rhythm without significant ST-T changes. Patient walked on a standard Axel protocol for 6-1/2 minutes achieved a maximal heart rate of 153 beats per minute which is more than 85% of predicted maximal. She developed fatigue and shortness of breath. No anginal symptoms were noted. No significant arrhythmia was noted. By EKG criteria, this is a negative stress test with fair exercise capacity. Baseline echo images revealed normal wall motion and wall thickening of all segments. To enhance to enhance the quality of the echo images, an echo contrast was administered. At peak exercise, there was good augmentation left ventricular wall motion and wall thickening of all segments suggesting that there is no evidence of any stress-induced ischemia on this study. FINAL IMPRESSION: 1. Fair exercise capacity with a negative stress test by EKG criteria. 2. Normal stress echocardiogram. MMODL / IJN: [id number] /
[2019-08-30 12:50] VITALS: BP 111/73; PULSE 92; TEMP 98.1
[2019-08-30 15:40] LABS: Hemoglobin A1C 13.6 % (4.0-6.0)
--- NOTE | 2019-09-03 16:21 | ECHOF ---
Referral Reason:cp MEASUREMENTS -------- HEIGHT: 154.9 cm WEIGHT: 93.9 kg BP: RVIDd: 2.1 cm (< 3.3) IVSd: 1.5 cm (0.6 - 1.1) LVIDd: 2.6 cm (3.9 - 5.3) LVPWd: 1.4 cm (0.6 - 1.1) IVSs: 1.7 cm LVIDs: 1.8 cm LVPWs: 1.5 cm LAESV Index (A-L): 17.90 ml/m Ao Diam: 2.6 cm (2.0 - 3.7) AV Cusp: 2.2 cm (1.5 - 2.6) LA Diam: 3.2 cm (2.7 - 3.8) MV EXCURSION: 15.792 mm (> 18.000) MV EF SLOPE: 53 mm/s (70 - 150) EPSS: 0.3 cm MV E Jesse: 0.56 m/s MV DecT: 182 ms MV A Jesse: 0.77 m/s MV E/A Ratio: 0.73 RAP: 15.00 mmHg RVSP: 37.65 mmHg TAPSE: 34.71 mm FINDINGS -------- Sinus rhythm. This was a technically good study. The left ventricular size is normal. There is moderate concentric left ventricular hypertrophy. O verall left ventricular systolic function is low-normal with, an EF between 50 - 55 %. Normal LAP G rade 1 Diastolic Dysfunction. The right ventricle is normal in size. The left atrial size is normal. Normal LA size by volume 22+/-6 ml/m2. The right atrial size is normal. The aortic valve is trileaflet and appears structurally normal. The mitral valve is normal. The mitral valve leaflets are mildly thickened. Mild mitral annular c alcification present. There is trace mitral regurgitation. The tricuspid valve appears structurally normal. Mild tricuspid regurgitation present. There is b orderline pulmonary hypertension. The right ventricular systolic pressure, as measured by Doppler, is 37.65mmHg. There is no pulmonic regurgitation present. The aortic root size is normal. The inferior vena cava is mildly dilated. There is no pericardial effusion. CONCLUSIONS -------- 1. Sinus rhythm. 2. This was a technically good study. 3. The left ventricular size is normal. 4. There is moderate concentric left ventricular hypertrophy. 5. Normal LAP Grade 1 Diastolic Dysfunction. 6. The right ventricle is normal in size. 7. The left atrial size is normal. 8. Normal LA size by volume 22+/-6 ml/m2. 9. The right atrial size is normal. 10. The aortic valve is trileaflet and appears structurally normal. 11. The mitral valve is normal. 12. The mitral valve leaflets are mildly thickened. 13. Mild mitral annular calcification present. 14. There is trace mitral regurgitation. 15. The tricuspid valve appears structurally normal. 16. Mild tricuspid regurgitation present. 17. There is borderline pulmonary hypertension. 18. The right ventricular systolic pressure, as measured by Doppler, is 37.65mmHg. 19. There is no pulmonic regurgitation present. 20. The aortic root size is normal. 21. The inferior vena cava is mildly dilated. 22. There is no pericardial effusion. ORNAMENTAL IRON ERECTOR: Mel Hernández RDCS
== END 2019-08-30 13:55 | disposition home or self-care (01) ==
LOC: EC 13:23 → 1SOBS 15:47
PROVIDERS: ADMIT Internal Medicine; ATTEND Internal Medicine
DX: R07.89 Other chest pain (principal); I25.10 Atherosclerotic heart disease of native coronary artery without angina pectoris; E11.65 Type 2 diabetes mellitus with hyperglycemia; Z79.4 Long term (current) use of insulin; Z96.41 Presence of insulin pump (external) (internal); I10 Essential (primary) hypertension; E78.5 Hyperlipidemia, unspecified; M79.7 Fibromyalgia; M06.9 Rheumatoid arthritis, unspecified; M54.41 Lumbago with sciatica, right side; E66.01 Morbid (severe) obesity due to excess calories; Z68.39 Body mass index [BMI] 39.0-39.9, adult; E78.00 Pure hypercholesterolemia, unspecified; I25.110 Atherosclerotic heart disease of native coronary artery with unstable angina pectoris; G89.29 Other chronic pain; T82.855A Stenosis of coronary artery stent, initial encounter; Y83.1 Surgical operation with implant of artificial internal device as the cause of abnormal reaction of the patient, or of later complication, without mention of misadventure at the time of the procedure; Z83.3 Family history of diabetes mellitus; Z82.49 Family history of ischemic heart disease and other diseases of the circulatory system; Z80.8 Family history of malignant neoplasm of other organs or systems; Z90.710 Acquired absence of both cervix and uterus; Z79.02 Long term (current) use of antithrombotics/antiplatelets; Z79.82 Long term (current) use of aspirin; Z79.899 Other long term (current) drug therapy; Z88.8 Allergy status to other drugs, medicaments and biological substances; Z90.49 Acquired absence of other specified parts of digestive tract
CPT/HCPCS: 93005 ×2; 96366 ×3; 96376 ×2; 96365; 99291; 36415; 93306; 93351; 83880; 80061; 80053; 83735; 84484 ×2; 85025; 85610; 85730 ×2; 83036; 71046; G0378 ×2; J1644 ×4; Q9950

== ENCOUNTER → 2019-09-27 | Outpatient (CLI) | payer OTHER ==
--- NOTE | 2019-09-27 14:47 | XR ---
EXAMINATION TYPE: XR hand complete LT DATE OF EXAM: 09/27/2019 COMPARISON: NONE HISTORY: Pain TECHNIQUE: Three views are submitted. FINDINGS: The osseous structures are intact. The joint spaces are preserved and there is no acute fracture or dislocation. Small benign-appearing cyst in the capitate. IMPRESSION: 1. No definite acute fracture or dislocation if symptoms persist, follow-up study in 7 to 10 days wo uld be suggested
== END | disposition home or self-care (01) ==
LOC: RAD 13:43
PROVIDERS: ATTEND Emergency Medicine
DX: S67.195A Crushing injury of left ring finger, initial encounter (principal)

== ENCOUNTER → 2019-10-04 | Outpatient (CLI) | payer OTHER ==
--- NOTE | 2019-10-04 09:34 | XR ---
Fourth digit left hand HISTORY: Injury one week prior, pain and swelling 3 views of the fourth digit left hand correlated to prior exam 09/27/2019 left hand Soft tissue swelling is present at the proximal interphalangeal joint of the fourth digit of the left hand. Alignment, joint spaces, bone mineralization are maintained. IMPRESSION: No fracture or dislocation. Soft tissue swelling present.
== END | disposition home or self-care (01) ==
LOC: RADXRMAIN 09:14
PROVIDERS: ATTEND Emergency Medicine
DX: M79.89 Other specified soft tissue disorders (principal)

== ENCOUNTER → 2020-01-28 | Outpatient (CLI) | payer MEDICAID ==
[2020-01-28 11:26] LABS: Basophils # (A) 0.1 k/uL (0-0.2); Basophils % (A) 1 %; Eosinophils # (A) 0.1 k/uL (0-0.7); Eosinophils % (A) 1 %; HGB 15.1 gm/dL (11.4-16.0); Lymphocytes # (A) 1.9 k/uL (1.0-4.8); Lymphocytes % (A) 20 %; MCH 32.4 pg (25.0-35.0); MCHC 33.5 g/dL (31.0-37.0); MCV 96.5 fL (80.0-100.0); Mean Platelet Volume 6.7; Monocytes # (A) 0.3 k/uL (0-1.0); Monocytes % (A) 3 %; Neutrophils # (A) 6.9 k/uL (1.3-7.7); Neutrophils % (A) 74 %; Platelet Count 391 k/uL (150-450); RBC 4.66 m/uL (3.80-5.40); RDW 12.8 % (11.5-15.5); WBC 9.3 k/uL (3.8-10.6)
[2020-01-28 11:45] LABS: Appearance,Urine Cloudy (Clear); Bacteria,Urine Rare /hpf; Bilirubin,Urine Negative (Negative); Blood,Urine Negative (Negative); Color,Urine Yellow; Glucose,Urine (UA) 4+ (Negative); Hyaline Casts,Urine 55 /lpf (0-2); Ketones,Urine Trace (Negative); Leukocyte Esterase,Urine Small (Negative); Mucus,Urine Few /hpf; Nitrite,Urine Negative (Negative); Protein,Urine Trace (Negative); RBC,Urine 1 /hpf (0-5); Specific Gravity,Urine 1.031 (1.001-1.035); Squamous Epithelial Cell,Urine 18 /hpf (0-4); Urobilinogen,Urine <2.0 mg/dL (<2.0); WBC,Urine 5 /hpf (0-5)
[2020-01-28 16:32] LABS: Erythrocyte Sedimentation Rate 20 mm/Hr (0-30)
[2020-01-28 16:52] LABS: Protein, Total 6.4 g/dL (6.2-8.2)
[2020-01-28 16:58] LABS: Anti-DNA, DS unit <1.0 IU/mL; Anti-Smith Ab Interp NEGATIVE (NEGATIVE); Cardiolipin Ab IgG Interp NEGATIVE (NEGATIVE); Cardiolipin Ab IgM Interp NEGATIVE (NEGATIVE); Cardiolipin IgM Antibody 0.3 U/mL; Centromere Antibody <0.2 AI; Centromere Antibody Interp NEGATIVE (NEGATIVE); Cyclic Citrull Pep IgG Unit <0.5 U/mL; Cyclic Citrullinated Pep IgG NEGATIVE (NEGATIVE); DNA Double-Stranded NEGATIVE (NEGATIVE); Scleroderma SC-70 Ab <0.2 AI
[2020-01-28 17:34] LABS: T4, Free (Free Thyroxine) 1.1 ng/dL (0.80-1.80)
[2020-01-28 17:38] LABS: Hepatitis B Surface Antigen Non-Reactive (Non-Reactive); Hepatitis C IgG Antibody Non-Reactive (Non-Reactive)
[2020-01-28 17:39] LABS: African American GFR (CKD) 97.6 (60.0-200.0); Albumin 4.2 g/dL (3.80-4.90); Albumin/Globulin Ratio 1.91 (1.60-3.17); Anion Gap 9.9 mmol/L (4.00-12.00); BUN/Creat Ratio 23.75 Ratio (12.00-20.00); C Reactive Protein 0.7 mg/dL (0.0-0.8); Calcium 9.3 mg/dL (8.7-10.3); Carbon Dioxide 25.1 mmol/L (21.6-31.8); Globulin 2.2 g/dL (1.6-3.3); Non-African American GFR(CKD) 84.2 (60.0-200.0); Potassium 4.1 mmol/L (3.5-5.5); Total Bilirubin 0.7 mg/dL (0.3-1.2); Total Protein 6.4 g/dL (6.2-8.2); Uric Acid 5.3 mg/dL (2.9-7.7)
[2020-01-29 09:34] LABS: Free Kappa Lt Chain Qnt, Serum 1.57 mg/dL (0.33-1.94)
[2020-01-29 09:57] LABS: Angiotensin-1 Converting Enz. 9 U/L (8-52)
[2020-01-29 10:42] LABS: APTT 32 Sec(s) (<43); Dilute Russell Viper Venom 37 Sec(s) (<44)
[2020-01-29 12:17] LABS: Albumin 3.85 g/dL (3.80-4.90); Gamma Globulin 0.66 g/dL (0.70-1.50)
[2020-01-29 12:20] LABS: HLA B27 NEGATIVE
[2020-01-29 15:03] LABS: C-ANCA <1:20 Titer (<1:20)
== END | disposition home or self-care (01) ==
LOC: LABWHC1 10:21
PROVIDERS: ATTEND Internal Medicine Rheumatology
DX: R76.8 Other specified abnormal immunological findings in serum (principal)
CPT/HCPCS: 36415; 80053; 81001; 82164; 82306; 82550; 83883; 84165; 84439; 84443; 84550; 85025; 85613; 85652; 85730; 86038; 86140; 86147; 86160; 86162; 86200; 86225; 86235; 86255; 86334; 86431; 86803; 86812; 87340

== ENCOUNTER 2020-07-07 10:08 | Inpatient (IN) | payer OTHER ==
[2020-07-07] MEDS ORDERED: SODIUM CHLORIDE 0.9% 1,000 ML IV STA (10:29)
[2020-07-07 10:59] LABS: Basophils # (A) 0.1 k/uL (0-0.2); Basophils % (A) 0 %; Eosinophils # (A) 0.1 k/uL (0-0.7); Eosinophils % (A) 1 %; HCT 53.6 % (34.0-46.0); Lymphocytes % (A) 6 %; MCHC 31.8 g/dL (31.0-37.0); MCV 97.6 fL (80.0-100.0); Mean Platelet Volume 7.4; Monocytes # (A) 0.4 k/uL (0-1.0); Monocytes % (A) 2 %; Neutrophils # (A) 13.3 k/uL (1.3-7.7); Neutrophils % (A) 89 %; Platelet Count 323 k/uL (150-450); RDW 13.6 % (11.5-15.5); WBC 14.9 k/uL (3.8-10.6)
[2020-07-07] MEDS: ONDANSETRON 4 MG/2 ML VIAL IVP STA ×2 (11:00→18:17)
[2020-07-07 11:17] LABS: ALT 23 U/L (4-34); AST 34 U/L (14-36); African American GFR (CKD) >90 (>60 ml/min/1.73 sqM); Albumin 4.5 g/dL (3.5-5.0); Alkaline Phosphatase 157 U/L (38-126); Blood Urea Nitrogen 12 mg/dL (7-17); Calcium 9.3 mg/dL (8.4-10.2); Chloride 103 mmol/L (98-107); Glucose 402 mg/dL (74-99); LDH 766 U/L (313-618); Non-African American GFR(CKD) >90 (>60 ml/min/1.73 sqM); Sodium 134 mmol/L (137-145); Total Bilirubin 0.7 mg/dL (0.2-1.3); Total Protein 8.5 g/dL (6.3-8.2)
[2020-07-07 11:29] LABS: Potassium 4.2 mmol/L (3.5-5.1)
--- NOTE | 2020-07-07 11:29 | XR ---
EXAMINATION TYPE: XR chest 1V portable DATE OF EXAM: 07/07/2020 COMPARISON: 08/29/2019 HISTORY: Chest pain TECHNIQUE: Single frontal view of the chest is obtained. FINDINGS: There is no focal air space opacity, pleural effusion, or pneumothorax seen. The cardiac silhouette size is within normal limits. The osseous structures are intact. IMPRESSION: No acute process.
[2020-07-07 11:31] LABS: Carbon Dioxide <5 mmol/L (22-30)
[2020-07-07 11:36] LABS: INR 0.9 (<1.2); Prothrombin Time 9.4 sec (9.0-12.0)
[2020-07-07 11:38] LABS: Partial Thromboplastin Time 18.8 sec (22.0-30.0)
[2020-07-07 11:39] LABS: D-Dimer 0.93 mg/L FEU (<0.60)
[2020-07-07] MEDS ORDERED: SODIUM CHLORIDE 0.9% 1,000 ML IV ONE (11:41)
[2020-07-07 11:51] LABS: C Reactive Protein 60.7 mg/L (<10.0)
--- NOTE | 2020-07-07 12:00 | ED ---
Weakness HPI <Carmine Klein - Last Filed: 07/07/20 12:45> - General Source: patient Mode of arrival: wheelchair Limitations: no limitations <Taylor Guerrero - Last Filed: 07/07/20 13:09> - General Chief complaint: Weakness Stated complaint: covid+/weakness Time Seen by Provider: 07/07/20 10:14 - History of Present Illness Initial comments: Patient is a 55-year-old female, with history of heart disease, hypertension, diabetes, presenting to the emergency Department with complaints of increasing weakness, nausea and vomiting over the last 5 days. Patient works at a long term, she tested positive for covid 5 days ago. Patient states her symptoms have mostly been body aches, chills, congestion, a mild cough as well as lots of nausea and vomiting. Patient states over the past 24 hours she feels like she is very short of breath and cannot complete a full sentence without stopping to breathe. She denies having any chest pain, no abdominal pain, no headaches or blurry vision. She states she has been very poor the last few days of tracking her sugars as well as taking her medications. Is also not been able to eat or drink very much. She has no further complaints at this time. Upon arrival to the ER, she has tachycardia at 119, she is afebrile, rest of vitals are normal, 97% on room air. (Taylor Guerrero) - Related Data Home Medications Medication Instructions Recorded Confirmed Atorvastatin [Lipitor] 80 mg PO DAILY 11/01/17 07/07/20 Furosemide [Lasix] 40 mg PO DAILY 11/01/17 07/07/20 Isosorbide Mononitrate [Imdur] 120 mg PO DAILY 04/06/18 07/07/20 Latanoprost Ophth [Xalatan 0.005%] 1 drops BOTH EYES HS 04/06/18 07/07/20 Aspirin EC [Ecotrin Low Dose] 81 mg PO DAILY 09/06/18 07/07/20 Ranolazine [Ranexa] 1,000 mg PO BID 09/06/18 07/07/20 Verapamil HCl [Verelan Pm] 100 mg PO HS 09/06/18 07/07/20 rOPINIRole HCL [Requip] 0.25 mg PO HS 05/21/19 07/07/20 Metoprolol Succinate (ER) [Toprol 100 mg PO DAILY 08/29/19 07/07/20 XL] metFORMIN HCL [Glucophage] 850 mg PO BID 08/29/19 07/07/20 Alirocumab [Praluent Pen] 150 mg SQ Q14D 07/07/20 07/07/20 Dulaglutide [Trulicity] 1.5 mg SQ TH 07/07/20 07/07/20 Quinapril HCl [Accupril] 5 mg PO DAILY 07/07/20 07/07/20 Previous Rx's Medication Instructions Recorded Clopidogrel [Plavix] 75 mg PO DAILY #30 tab 06/15/17 Allergies Allergy/AdvReac Type Severity Reaction Status Date / Time pioglitazone [From Actos] Allergy Swelling Verified 07/07/20 11:08 simvastatin [From Zocor] AdvReac muscle Verified 07/07/20 11:08 spasms Review of Systems ROS Other: All systems not noted in ROS Statement are negative. <Carmine Klein - Last Filed: 07/07/20 12:45> ROS Other: All systems not noted in ROS Statement are negative. <Taylor Guerrero - Last Filed: 07/07/20 13:09> ROS Statement: Those systems with pertinent positive or pertinent negative responses have been documented in the HPI. Past Medical History Past Medical History: Coronary Artery Disease (CAD), Chest Pain / Angina, Diabetes Mellitus, Fibromyalgia, Hyperlipidemia, Hypertension, Rheumatoid Arthritis (RA) Additional Past Medical History / Comment(s): occ. 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 History of Any Multi-Drug Resistant Organisms: None Reported Past Surgical History: Adenoidectomy, Back Surgery, Section, Cholecystectomy, Heart Catheterization, Heart Catheterization With Stent, Hysterectomy, Orthopedic Surgery, Tonsillectomy, Tubal Ligation Additional Past Surgical History / Comment(s): RIGHT SHOULDER ARTHROSCOPY, COLONOSCOPY, LOW BACK SURGERY WITH RODS/SCREWS, 8 heart stents, Right carpal tunnel Past Anesthesia/Blood Transfusion Reactions: No Reported Reaction Date of Last Stent Placement:: 10/2017 Past Psychological History: No Psychological Hx Reported Smoking Status: Never smoker Past Alcohol Use History: None Reported Past Drug Use History: None Reported - Past Family History Father Family Medical History: Cancer Additional Family Medical History / Comment(s): Brain CA Daughter(s) Family Medical History: Diabetes Mellitus Additional Family Medical History / Comment(s): Patient has 2 sisters with no significant past medical history Sister(s) Family Medical History: Thyroid Disorder Mother Family Medical History: Hypertension, Renal Disease Additional Family Medical History / Comment(s): brights disease <Taylor Guerrero - Last Filed: 07/07/20 13:09> General Exam Limitations: no limitations <Taylor Guerrero - Last Filed: 07/07/20 13:09> - General Exam Comments Initial Comments: GENERAL: Patient is well-developed and well-nourished. Patient is in moderate distress, cannot finish a complete sentences without having to stop to breathe. HEAD: Atraumatic, normocephalic. EYES: Pupils equal round and reactive to light, extraocular movements intact, sclera anicteric, conjunctiva are normal. Eyelids were unremarkable. ENT: TMs normal, nares patent, oropharynx clear without exudates. Dry mucous membranes. NECK: Normal range of motion, supple without lymphadenopathy or JVD. LUNGS: labored respirations. Breath sounds clear to auscultation bilaterally and equal. No wheezes rales or rhonchi. HEART: Tachycardia rate and rhythm without murmurs, rubs or gallops. ABDOMEN: Soft, nontender, normoactive bowel sounds. No guarding, no rebound. No masses appreciated. : Deferred MUSCULOSKELETAL: Normal extremities with adequate strength and normal range of motion, no pitting or edema. No clubbing or cyanosis. NEUROLOGICAL: Patient is alert and oriented x 3. Motor and sensory are also intact. Cranial nerves II through XII grossly intact. Symmetrical smile. Normal speech, normal gait. PSYCH: Normal mood, normal affect. SKIN: Warm, Dry, normal turgor, no rashes or lesions noted. (Taylor Guerrero) Course <Carmine Klein Jimena - Last Filed: 07/07/20 12:45> Vital Signs 07/07/20 10:10 Temperature 98.7 F Pulse Rate 119 H Respiratory 18 Rate Blood Pressure 148/82 O2 Sat by Pulse 97 Oximetry - Reevaluation(s) Reevaluation #1: 07/07/20 12:45 Patient resting comfortably, tachycardic around 110, stable blood pressure. She does have metabolic acidosis with a pH is 7.0. Blood glucose is 400. She has been given saline bolus as well as started on insulin drip. I discussed case both with Dr. Maier and with Dr. Ervin. (Carmine Klein) EKG Findings - EKG Comments: EKG Findings:: Sinus tach, nonspecific T-wave abnormalities, no signs of acute process. Ventricular rate 118, NV of 144, QT 344. <Taylor Guerrero - Last Filed: 07/07/20 13:09> Medical Decision Making - Lab Data Result diagrams: 07/07/20 10:45 07/07/20 10:45 <Carmine Klein - Last Filed: 07/07/20 12:45> - Lab Data Result diagrams: 07/07/20 10:45 07/07/20 10:45 <Taylor Guerrero - Last Filed: 07/07/20 13:09> - Medical Decision Making Patient is a 55-year-old female's history of heart disease, diabetes, presenting for increasing weakness, nausea and vomiting as well as short of breath. She tested positive for Covid 5 days ago. Patient arrived tachycardia, afebrile, 97% on room air. She was having a hard time completing a sentence without having to stop to breathe. Labs show a elevated white count at 14.9, hemoglobin is high at 17.0, CO2 returned at less than 5, gap is not able to be calculated, sodium is 134, potassium is 4.2, glucose is 402. Lactic acid is 1.6, CRP is 60. Her d-dimer did come back at 0.93, did check this for prognosis purposes. Acetone positive. Patient's chest x-ray and EKG shows no acute process. Patient was given 2 L of fluid, Zofran. Insulin drip was started. VBG returned 7.0 pH, pCO2 26, HCO3 6. Patient will be admitted, Dr. Maier is accepting, Dr. Ervin on consult. Patient is in agreement with this. Case discussed in detail with Dr. Klein. (Taylor Guerrero) - Lab Data Lab Results 07/07/20 07/07/20 07/07/20 Range/Units 10:45 10:45 10:45 WBC 14.9 H (3.8-10.6) k/uL RBC 5.50 H (3.80-5.40) m/uL Hgb 17.0 H (11.4-16.0) gm/dL Hct 53.6 H (34.0-46.0) % MCV 97.6 (80.0-100.0) fL MCH 31.0 (25.0-35.0) pg MCHC 31.8 (31.0-37.0) g/dL RDW 13.6 (11.5-15.5) % Plt Count 323 (150-450) k/uL MPV 7.4 Neutrophils % 89 % Lymphocytes % 6 % Monocytes % 2 % Eosinophils % 1 % Basophils % 0 % Neutrophils # 13.3 H (1.3-7.7) k/uL Lymphocytes # 1.0 (1.0-4.8) k/uL Monocytes # 0.4 (0-1.0) k/uL Eosinophils # 0.1 (0-0.7) k/uL Basophils # 0.1 (0-0.2) k/uL PT 9.4 (9.0-12.0) sec INR 0.9 (<1.2) APTT 18.8 L (22.0-30.0) sec D-Dimer 0.93 H (<0.60) mg/L FEU VBG pH (7.31-7.41) VBG pCO2 (37-51) mmHg VBG HCO3 (24-28) mmol/L Sodium 134 L (137-145) mmol/L Potassium 4.2 (3.5-5.1) mmol/L Chloride 103 (98-107) mmol/L Carbon Dioxide <5 L* (22-30) mmol/L Anion Gap mmol/L BUN 12 (7-17) mg/dL Creatinine 0.66 (0.52-1.04) mg/dL Est GFR (CKD-EPI)AfAm >90 (>60 ml/min/1.73 sqM) Est GFR (CKD-EPI)NonAf >90 (>60 ml/min/1.73 sqM) Glucose 402 H (74-99) mg/dL Plasma Lactic Acid Elia (0.7-2.0) mmol/L Calcium 9.3 (8.4-10.2) mg/dL Magnesium 2.0 (1.6-2.3) mg/dL Total Bilirubin 0.7 (0.2-1.3) mg/dL AST 34 (14-36) U/L ALT 23 (4-34) U/L Alkaline Phosphatase 157 H (38-126) U/L Lactate Dehydrogenase 766 H (313-618) U/L C-Reactive Protein (<10.0) mg/L Total Protein 8.5 H (6.3-8.2) g/dL Albumin 4.5 (3.5-5.0) g/dL Acetone, Qual (Negative) 07/07/20 07/07/20 07/07/20 Range/Units 10:45 11:22 11:32 WBC (3.8-10.6) k/uL RBC (3.80-5.40) m/uL Hgb (11.4-16.0) gm/dL Hct (34.0-46.0) % MCV (80.0-100.0) fL MCH (25.0-35.0) pg MCHC (31.0-37.0) g/dL RDW (11.5-15.5) % Plt Count (150-450) k/uL MPV Neutrophils % % Lymphocytes % % Monocytes % % Eosinophils % % Basophils % % Neutrophils # (1.3-7.7) k/uL Lymphocytes # (1.0-4.8) k/uL Monocytes # (0-1.0) k/uL Eosinophils # (0-0.7) k/uL Basophils # (0-0.2) k/uL PT (9.0-12.0) sec INR (<1.2) APTT (22.0-30.0) sec D-Dimer (<0.60) mg/L FEU VBG pH (7.31-7.41) VBG pCO2 (37-51) mmHg VBG HCO3 (24-28) mmol/L Sodium (137-145) mmol/L Potassium (3.5-5.1) mmol/L Chloride (98-107) mmol/L Carbon Dioxide (22-30) mmol/L Anion Gap mmol/L BUN (7-17) mg/dL Creatinine (0.52-1.04) mg/dL Est GFR (CKD-EPI)AfAm (>60 ml/min/1.73 sqM) Est GFR (CKD-EPI)NonAf (>60 ml/min/1.73 sqM) Glucose (74-99) mg/dL Plasma Lactic Acid Elia 1.6 (0.7-2.0) mmol/L Calcium (8.4-10.2) mg/dL Magnesium (1.6-2.3) mg/dL Total Bilirubin (0.2-1.3) mg/dL AST (14-36) U/L ALT (4-34) U/L Alkaline Phosphatase (38-126) U/L Lactate Dehydrogenase (313-618) U/L C-Reactive Protein 60.7 H (<10.0) mg/L Total Protein (6.3-8.2) g/dL Albumin (3.5-5.0) g/dL Acetone, Qual Positive (Negative) 07/07/20 Range/Units 11:50 WBC (3.8-10.6) k/uL RBC (3.80-5.40) m/uL Hgb (11.4-16.0) gm/dL Hct (34.0-46.0) % MCV (80.0-100.0) fL MCH (25.0-35.0) pg MCHC (31.0-37.0) g/dL RDW (11.5-15.5) % Plt Count (150-450) k/uL MPV Neutrophils % % Lymphocytes % % Monocytes % % Eosinophils % % Basophils % % Neutrophils # (1.3-7.7) k/uL Lymphocytes # (1.0-4.8) k/uL Monocytes # (0-1.0) k/uL Eosinophils # (0-0.7) k/uL Basophils # (0-0.2) k/uL PT (9.0-12.0) sec INR (<1.2) APTT (22.0-30.0) sec D-Dimer (<0.60) mg/L FEU VBG pH 7.00 L* (7.31-7.41) VBG pCO2 26 L (37-51) mmHg VBG HCO3 6 L* (24-28) mmol/L Sodium (137-145) mmol/L Potassium (3.5-5.1) mmol/L Chloride (98-107) mmol/L Carbon Dioxide (22-30) mmol/L Anion Gap mmol/L BUN (7-17) mg/dL Creatinine (0.52-1.04) mg/dL Est GFR (CKD-EPI)AfAm (>60 ml/min/1.73 sqM) Est GFR (CKD-EPI)NonAf (>60 ml/min/1.73 sqM) Glucose (74-99) mg/dL Plasma Lactic Acid Elia (0.7-2.0) mmol/L Calcium (8.4-10.2) mg/dL Magnesium (1.6-2.3) mg/dL Total Bilirubin (0.2-1.3) mg/dL AST (14-36) U/L ALT (4-34) U/L Alkaline Phosphatase (38-126) U/L Lactate Dehydrogenase (313-618) U/L C-Reactive Protein (<10.0) mg/L Total Protein (6.3-8.2) g/dL Albumin (3.5-5.0) g/dL Acetone, Qual (Negative) Critical Care Time Critical Care Time: Yes Total Critical Care Time: 35 (Patient arrives Covid +5 days ago, in DKA. CO2 is less than 5, VBG returned pH of 7.00. Patient was started on insulin drip, admitted for DKA.) <Taylor Guerrero - Last Filed: 07/07/20 13:09> Disposition Is patient prescribed a controlled substance at d/c from ED?: No <Carmine Klein - Last Filed: 07/07/20 12:45> Is patient prescribed a controlled substance at d/c from ED?: No Decision Date: 07/07/20 Decision Time: 12:19 <Taylor Guerrero - Last Filed: 07/07/20 13:09> Clinical Impression: DKA (diabetic ketoacidoses), Dehydration, COVID-19 Disposition: ADMITTED IP TO THIS [facility] Condition: Good
[2020-07-07] MEDS ORDERED: INSULIN REGULAR BOLUS (FROM DRIP BAG) IV ONE (12:13)
[2020-07-07] MEDS: SODIUM CHLORIDE 0.9% 1,000 ML IV SCH ×3 (12:50→21:22)
[2020-07-07] MEDS: INSULIN REGULAR 100 UNIT in SODIUM CHLORIDE 0.9% 100 ML IV SCH (12:52)
[2020-07-07 13:21] LABS: Glucose,Whole Blood 357 mg/dL (75-99)
[2020-07-07 13:35] LABS: Appearance,Urine Clear (Clear); Bacteria,Urine Rare /hpf; Bilirubin,Urine Negative (Negative); Blood,Urine Small (Negative); Color,Urine Light Yellow; Glucose,Urine (UA) 4+ (Negative); Granular Casts,Urine 3 /lpf (0); Hyaline Casts,Urine 1 /lpf (0-2); Leukocyte Esterase,Urine Negative (Negative); Mucus,Urine Rare /hpf; Nitrite,Urine Negative (Negative); PH, Urine 5.5 (5.0-8.0); Protein,Urine 1+ (Negative); RBC,Urine 1 /hpf (0-5); Specific Gravity,Urine 1.019 (1.001-1.035); Squamous Epithelial Cell,Urine 1 /hpf (0-4); Urobilinogen,Urine <2.0 mg/dL (<2.0); WBC,Urine 1 /hpf (0-5)
--- NOTE | 2020-07-07 13:38 | P.HPIM ---
History of Present Illness Patient is a pleasant 55-year-old female came in with compensative nausea vomiting going on for 5 days and patient is found to have severe anion gap metabolic acidosis and severe acidosis with bicarbonate less than 5 patient was diagnosed with covid 19 about 5 days ago patient started having symptoms about the 10-12 days ago. Patient mostly had body aches chills congestion denied any sick shortness of breath mild cough and nausea vomiting severe for last 4 days. Patient has not been eating or drinking well. Patient is found to have highly elevated blood sugars. Patient is positive for acetone tachycardic at heart rate of 119 although patient usually uses metoprolol probably didn't tolerate this medication as she is been throwing up. Patient has history of insulin- dependent type 2 diabetes mellitus. Patient is feeling severely tired and fatigued denied any fever last 24 hours. Review of Systems REVIEW OF SYSTEMS: CONSTITUTIONAL: As mentioned above HEENT: No recent visual problems or hearing problems. Denied any sore throat. CARDIOVASCULAR: No chest pain, orthopnea, PND, no palpitations, no syncope. PULMONARY: No shortness of breath, no cough, no hemoptysis. GASTROINTESTINAL: As mentioned above NEUROLOGICAL: No headaches, no weakness, no numbness. HEMATOLOGICAL: Denies any bleeding or petechiae. GENITOURINARY: Denies any burning micturition, frequency, or urgency. MUSCULOSKELETAL/RHEUMATOLOGICAL: Denies any joint pain, swelling, or any muscle pain. ENDOCRINE: Denies any polyuria or polydipsia. The rest of the 14-point review of systems is negative. Past Medical History Past Medical History: Coronary Artery Disease (CAD), Chest Pain / Angina, Diabetes Mellitus, Fibromyalgia, Hyperlipidemia, Hypertension, Rheumatoid Art hritis (RA) Additional Past Medical History / Comment(s): occ. 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 History of Any Multi-Drug Resistant Organisms: None Reported Past Surgical History: Adenoidectomy, Back Surgery, Section, Cholecystectomy, Heart Catheterization, Heart Catheterization With Stent, Hysterectomy, Orthopedic Surgery, Tonsillectomy, Tubal Ligation Additional Past Surgical History / Comment(s): RIGHT SHOULDER ARTHROSCOPY, COLONOSCOPY, LOW BACK SURGERY WITH RODS/SCREWS, 8 heart stents, Right carpal t unnel Past Anesthesia/Blood Transfusion Reactions: No Reported Reaction Date of Last Stent Placement:: 10/2017 Past Psychological History: No Psychological Hx Reported Smoking Status: Never smoker Past Alcohol Use History: None Reported Past Drug Use History: None Reported - Past Family History Father Family Medical History: Cancer Additional Family Medical History / Comment(s): Brain CA Daughter(s) Family Medical History: Diabetes Mellitus Additional Family Medical History / Comment(s): Patient has 2 sisters with no significant past medical history Sister(s) Family Medical History: Thyroid Disorder Mother Family Medical History: Hypertension, Renal Disease Additional Family Medical History / Comment(s): brights disease Medications and Allergies Home Medications Medication Instructions Recorded Confirmed Type Clopidogrel [Plavix] 75 mg PO DAILY #30 tab 06/15/17 07/07/20 Rx Atorvastatin [Lipitor] 80 mg PO DAILY 11/01/17 07/07/20 History Furosemide [Lasix] 40 mg PO DAILY 11/01/17 07/07/20 History Isosorbide Mononitrate [Imdur] 120 mg PO DAILY 04/06/18 07/07/20 History Latanoprost Ophth [Xalatan 0.005%] 1 drops BOTH EYES HS 04/06/18 07/07/20 History Aspirin EC [Ecotrin Low Dose] 81 mg PO DAILY 09/06/18 07/07/20 History Ranolazine [Ranexa] 1,000 mg PO BID 09/06/18 07/07/20 History Verapamil HCl [Verelan Pm] 100 mg PO HS 09/06/18 07/07/20 History rOPINIRole HCL [Requip] 0.25 mg PO HS 05/21/19 07/07/20 History Metoprolol Succinate (ER) [Toprol 100 mg PO DAILY 08/29/19 07/07/20 History XL] metFORMIN HCL [Glucophage] 850 mg PO BID 08/29/19 07/07/20 History Alirocumab [Praluent Pen] 150 mg SQ Q14D 07/07/20 07/07/20 History Dulaglutide [Trulicity] 1.5 mg SQ TH 07/07/20 07/07/20 History Quinapril HCl [Accupril] 5 mg PO DAILY 07/07/20 07/07/20 History Allergies Allergy/AdvReac Type Severity Reaction Status Date / Time pioglitazone [From Actos] Allergy Swelling Verified 07/07/20 11:08 simvastatin [From Zocor] AdvReac muscle Verified 07/07/20 11:08 spasms Physical Exam Vitals: Vital Signs Temp Pulse Resp BP Pulse Ox 07/07/20 10:10 98.7 F 119 H 18 148/82 97 Intake and Output 07/06/20 07/07/20 07/07/20 22:59 06:59 14:59 Other: Weight 73.936 kg PHYSICAL EXAMINATION: GENERAL: The patient is alert and oriented x3, appears to be pretty tired, looks sick HEENT: Pupils are round and equally reacting to light. EOMI. No scleral icterus. No conjunctival pallor. Normocephalic, atraumatic. No pharyngeal erythema. No thyromegaly. CARDIOVASCULAR: S1 and S2 present. No murmurs, rubs, or gallops. K cardiac sinus rhythm PULMONARY: Chest is clear to auscultation, no wheezing or crackles. ABDOMEN: Soft, nontender, nondistended, normoactive bowel sounds. No palpable organomegaly. MUSCULOSKELETAL: No joint swelling or deformity. EXTREMITIES: No cyanosis, clubbing, or pedal edema. NEUROLOGICAL: Gross neurological examination did not reveal any focal deficits. SKIN: No rashes. Results CBC & Chem 7: 07/07/20 10:45 07/07/20 10:45 Labs: Abnormal Lab Results - Last 24 Hours (Table) 07/07/20 07/07/20 07/07/20 Range/Units 10:45 10:45 10:45 WBC 14.9 H (3.8-10.6) k/uL RBC 5.50 H (3.80-5.40) m/uL Hgb 17.0 H (11.4-16.0) gm/dL Hct 53.6 H (34.0-46.0) % Neutrophils # 13.3 H (1.3-7.7) k/uL APTT 18.8 L (22.0-30.0) sec D-Dimer 0.93 H (<0.60) mg/L FEU VBG pH (7.31-7.41) VBG pCO2 (37-51) mmHg VBG HCO3 (24-28) mmol/L Sodium 134 L (137-145) mmol/L Carbon Dioxide <5 L* (22-30) mmol/L Glucose 402 H (74-99) mg/dL POC Glucose (mg/dL) (75-99) mg/dL Alkaline Phosphatase 157 H (38-126) U/L Lactate Dehydrogenase 766 H (313-618) U/L C-Reactive Protein (<10.0) mg/L Total Protein 8.5 H (6.3-8.2) g/dL 07/07/20 07/07/20 07/07/20 Range/Units 11:22 11:50 13:19 WBC (3.8-10.6) k/uL RBC (3.80-5.40) m/uL Hgb (11.4-16.0) gm/dL Hct (34.0-46.0) % Neutrophils # (1.3-7.7) k/uL APTT (22.0-30.0) sec D-Dimer (<0.60) mg/L FEU VBG pH 7.00 L* (7.31-7.41) VBG pCO2 26 L (37-51) mmHg VBG HCO3 6 L* (24-28) mmol/L Sodium (137-145) mmol/L Carbon Dioxide (22-30) mmol/L Glucose (74-99) mg/dL POC Glucose (mg/dL) 357 H (75-99) mg/dL Alkaline Phosphatase (38-126) U/L Lactate Dehydrogenase (313-618) U/L C-Reactive Protein 60.7 H (<10.0) mg/L Total Protein (6.3-8.2) g/dL Assessment and Plan Plan: -Fatigue, malaise: Most probably secondary to metabolic acidosis which is again secondary to starvation ketosis and diabetic ketoacidosis along with possible lactic acidosis lactic acid levels will be obtained patient was a bolus of IV fluids and presently in 200 mL of IV normal saline which is appropriate and which will be continued. Patient is also on diabetic take ketoacidosis protocol which will be continued. Patient the nausea vomiting is probably secondary to covid 19 which may have led to severe anion gap metabolic acidosis and IV ketoacidosis. -Covid 19 infection: She will not be started on any Decadron as patient doesn't have any significant respiratory symptoms and this Decadron may make DKA worse. -Anion gap metabolic acidosis: Secondary to above-mentioned reasons -Coronary artery disease patient will be resumed on home regimen of medications -Hyponatremia pseudohyponatremia from a hyperglycemia -Type 2 diabetes mellitus uncontrolled elevated blood sugars secondary to infection -Hyperlipidemia -Hypertension -Rheumatoid arthritis and patient is on monoclonal antibody injections once in 2 weeks which will be continued -DVT prophylaxis with subcutaneous Lovenox
[2020-07-07] MEDS: METOPROLOL SUCCINATE (ER) 100 MG TAB.ER.24H PO SCH (13:51)
[2020-07-07 14:05] LABS: Glucose,Whole Blood 291 mg/dL (75-99)
[2020-07-07 14:13] LABS: Ketones,Urine 4+ (Negative)
[2020-07-07 14:26] LABS: ALT 17 U/L (4-34); African American GFR (CKD) >90 (>60 ml/min/1.73 sqM); Albumin 3.1 g/dL (3.5-5.0); Blood Urea Nitrogen 11 mg/dL (7-17); Chloride 116 mmol/L (98-107); Glucose 269 mg/dL (74-99); Non-African American GFR(CKD) >90 (>60 ml/min/1.73 sqM); Sodium 139 mmol/L (137-145); Total Bilirubin 0.5 mg/dL (0.2-1.3); Total Protein 5.9 g/dL (6.3-8.2)
[2020-07-07 14:27] LABS: AST 25 U/L (14-36); Alkaline Phosphatase 98 U/L (38-126); Carbon Dioxide <5 mmol/L (22-30); Potassium 3.6 mmol/L (3.5-5.1)
[2020-07-07] MEDS ORDERED: POTASSIUM CHLORIDE ER 20 MEQ TAB.ER PO STA (14:39)
[2020-07-07 14:56] LABS: VBG PH 6.96 (7.31-7.41)
[2020-07-07] MEDS: D5-0.45% NACL WITH KCL 20MEQ/L 1,000 ML IV SCH ×2 (15:01→22:20)
[2020-07-07 15:02] LABS: Glucose,Whole Blood 292 mg/dL (75-99)
[2020-07-07 16:12] LABS: Glucose,Whole Blood 228 mg/dL (75-99)
[2020-07-07 17:11] LABS: Glucose,Whole Blood 184 mg/dL (75-99)
[2020-07-07] MEDS ORDERED: ACETAMINOPHEN TAB 500 MG TAB PO STA (18:08)
[2020-07-07 18:54] LABS: Glucose,Whole Blood 145 mg/dL (75-99)
[2020-07-07 19:17] LABS: Glucose,Whole Blood 124 mg/dL (75-99)
[2020-07-07 19:58] LABS: African American GFR (CKD) >90 (>60 ml/min/1.73 sqM); Anion Gap 11 mmol/L; Blood Urea Nitrogen 11 mg/dL (7-17); Chloride 114 mmol/L (98-107); Glucose 115 mg/dL (74-99); Non-African American GFR(CKD) >90 (>60 ml/min/1.73 sqM); Phosphorus 1.5 mg/dL (2.5-4.5); Potassium 4.2 mmol/L (3.5-5.1); Sodium 134 mmol/L (137-145)
[2020-07-07 20:04] LABS: Carbon Dioxide 9 mmol/L (22-30)
[2020-07-07 20:12] LABS: Glucose,Whole Blood 127 mg/dL (75-99)
[2020-07-07 21:07] LABS: Glucose,Whole Blood 124 mg/dL (75-99)
[2020-07-07] MEDS: RANOLAZINE 500 MG TAB.ER.12H PO SCH (21:25)
[2020-07-07 21:55] LABS: Glucose,Whole Blood 145 mg/dL (75-99)
[2020-07-07] MEDS: VERAPAMIL SR 120 MG TABLET.ER PO SCH (22:20)
[2020-07-07] MEDS: LATANOPROST 0.005% OPHTH DROPS 2.5 ML BTL BOTH EYES SCH (22:20)
[2020-07-07 23:07] LABS: Glucose,Whole Blood 208 mg/dL (75-99)
[2020-07-08] LABS: Glucose,Whole Blood 244 mg/dL (75-99)
[2020-07-08 00:18] LABS: African American GFR (CKD) >90 (>60 ml/min/1.73 sqM); Anion Gap 11 mmol/L; Blood Urea Nitrogen 10 mg/dL (7-17); Carbon Dioxide 10 mmol/L (22-30); Chloride 111 mmol/L (98-107); Glucose 227 mg/dL (74-99); Non-African American GFR(CKD) >90 (>60 ml/min/1.73 sqM); Potassium 4.2 mmol/L (3.5-5.1); Sodium 132 mmol/L (137-145)
[2020-07-08 00:46] LABS: Glucose,Whole Blood 240 mg/dL (75-99)
[2020-07-08 01:31] LABS: Ferritin 712.2 ng/mL (10.0-291.0)
[2020-07-08 01:54] LABS: Glucose,Whole Blood 243 mg/dL (75-99)
[2020-07-08 03:05] LABS: Glucose,Whole Blood 287 mg/dL (75-99)
[2020-07-08 03:56] LABS: Glucose,Whole Blood 255 mg/dL (75-99)
[2020-07-08] MEDS: INSULIN REGULAR 100 UNIT in SODIUM CHLORIDE 0.9% 100 ML IV SCH (04:01)
[2020-07-08] MEDS: SODIUM CHLORIDE 0.9% 1,000 ML IV SCH ×6 (04:02→16:47)
[2020-07-08] MEDS: D5-0.45% NACL WITH KCL 20MEQ/L 1,000 ML IV SCH (04:02)
[2020-07-08 04:55] LABS: Glucose,Whole Blood 235 mg/dL (75-99)
[2020-07-08 05:59] LABS: Glucose,Whole Blood 246 mg/dL (75-99)
[2020-07-08 06:56] LABS: Glucose,Whole Blood 330 mg/dL (75-99)
[2020-07-08 07:58] LABS: Glucose,Whole Blood 304 mg/dL (75-99)
[2020-07-08 08:09] LABS: Basophils % (A) 0 %; Eosinophils % (A) 0 %; HCT 39.8 % (34.0-46.0); Lymphocytes # (A) 1.5 k/uL (1.0-4.8); Lymphocytes % (A) 13 %; MCH 31.3 pg (25.0-35.0); MCHC 33.6 g/dL (31.0-37.0); MCV 92.9 fL (80.0-100.0); Mean Platelet Volume 6.6; Monocytes # (A) 0.5 k/uL (0-1.0); Monocytes % (A) 5 %; Neutrophils # (A) 8.7 k/uL (1.3-7.7); Neutrophils % (A) 80 %; Platelet Count 314 k/uL (150-450); RBC 4.28 m/uL (3.80-5.40); RDW 13.2 % (11.5-15.5); WBC 10.9 k/uL (3.8-10.6)
[2020-07-08 08:16] LABS: African American GFR (CKD) >90 (>60 ml/min/1.73 sqM); Anion Gap 7 mmol/L; Blood Urea Nitrogen 8 mg/dL (7-17); Calcium 8.2 mg/dL (8.4-10.2); Carbon Dioxide 19 mmol/L (22-30); Chloride 108 mmol/L (98-107); Glucose 242 mg/dL (74-99); Non-African American GFR(CKD) >90 (>60 ml/min/1.73 sqM); Potassium 4.2 mmol/L (3.5-5.1); Sodium 134 mmol/L (137-145)
[2020-07-08] MEDS: ENOXAPARIN 40 MG/0.4 ML SYRINGE SQ SCH (08:18)
[2020-07-08] MEDS: ASPIRIN 81 MG PO SCH (08:18)
[2020-07-08] MEDS: METOPROLOL SUCCINATE (ER) 100 MG TAB.ER.24H PO SCH (08:18)
[2020-07-08] MEDS: CLOPIDOGREL 75 MG TAB PO SCH (08:18)
[2020-07-08] MEDS: RANOLAZINE 500 MG TAB.ER.12H PO SCH ×2 (08:18→22:02)
[2020-07-08] MEDS: ISOSORBIDE MONONITRATE ER 60 MG TAB.ER.24H PO SCH (08:19)
[2020-07-08] MEDS: ATORVASTATIN 80 MG TAB PO SCH (08:19)
[2020-07-08 08:25] LABS: HGB 13.4 gm/dL (11.4-16.0)
[2020-07-08 08:56] LABS: Glucose,Whole Blood 249 mg/dL (75-99)
[2020-07-08] MEDS: ONDANSETRON 4 MG/2 ML VIAL IVP PRN ×2 (09:04→23:41)
[2020-07-08] MEDS ORDERED: INSULIN DETEMIR (LEVEMIR) 100 UNIT/ML SYR SQ STA (09:39)
[2020-07-08] MEDS: ACETAMINOPHEN TAB 325 MG TAB PO PRN (12:19)
[2020-07-08 12:25] LABS: Glucose,Whole Blood 199 mg/dL (75-99)
[2020-07-08] MEDS: INSULIN ASPART (NovoLOG) 100 UNIT/ML VIAL SQ SCH ×3 (12:29→22:03)
[2020-07-08 13:00] VITALS: BMI 33.7
--- NOTE | 2020-07-08 13:05 | P.PN ---
Subjective 55-year-old female came in with compensative nausea vomiting going on for 5 days and patient is found to have severe anion gap metabolic acidosis and severe acidosis with bicarbonate less than 5 patient was diagnosed with covid 19 about 5 days ago patient started having symptoms about the 10-12 days ago. Patient mostly had body aches chills congestion denied any sick shortness of breath mild cough and nausea vomiting severe for last 4 days. Patient has not been eating or drinking well. Patient is found to have highly elevated blood sugars. Patient is positive for acetone tachycardic at heart rate of 119 although patient usually uses metoprolol probably didn't tolerate this medication as she is been throwing up. Patient has history of insulin-dependent type 2 diabetes mellitus. Patient is feeling severely tired and fatigued denied any fever last 24 hours. 07/08/2020 DKA resolved the patient is still not feeling well. Although patient nausea improves patient was started on liquid diet will advance as tolerated patient IV insulin will be discontinued, patient will be started on long-acting insulin at home dose along with sliding scale with each meal and patient will be switched to normal saline at 100 mL per hour if she is doing okay which most probably will be discharged tomorrow Constitutional: Denied any fatigue denied any fever. Cardio vascular: denied any chest pain, palpitations Gastrointestinal as mentioned in the interval history Pulmonary: Denied any shortness of breath cough Neurologic denied any new focal deficits All inpatient medications were reviewed and appropriate changes in these medications as dictated in the interval history and assessment and plan. Objective - Vital Signs Vital signs: Vital Signs Temp 97.6 F 07/08/20 11:22 Pulse 86 07/08/20 11:22 Resp 18 07/08/20 11:22 BP 101/66 07/08/20 11:22 Pulse Ox 98 07/08/20 11:22 Intake & Output 07/07/20 07/08/20 07/08/20 18:59 06:59 18:59 Intake Total 41.758 1080.970 5.133 Output Total 700 Balance 41.758 380.970 5.133 Weight 73.936 kg 78.3 kg 78.3 kg Intake: Intake, IV Titration 41.758 720.970 5.133 Amount D5-0.45% NaCl with KCl 700 20Meq/l 1,000 ml @ 150 mls/hr IV .[id number] [facility] Rx# :[id number] Insulin Regular 100 unit 41.758 20.970 5.133 In Sodium Chloride 0.9% 100 ml @ 0.1 UNITS/KG/HR 7.468 mls/hr IV .[id number] [facility] Rx#:[id number] Oral 360 Output: Urine 700 Other: # Voids 1 - Exam PHYSICAL EXAMINATION: GENERAL: The patient is alert and oriented x3, appears to be pretty tired, looks sick HEENT: Pupils are round and equally reacting to light. EOMI. No scleral icterus. No conjunctival pallor. Normocephalic, atraumatic. No pharyngeal erythema. No thyromegaly. CARDIOVASCULAR: S1 and S2 present. No murmurs, rubs, or gallops. K cardiac sinus rhythm PULMONARY: Chest is clear to auscultation, no wheezing or crackles. ABDOMEN: Soft, nontender, nondistended, normoactive bowel sounds. No palpable organomegaly. MUSCULOSKELETAL: No joint swelling or deformity. EXTREMITIES: No cyanosis, clubbing, or pedal edema. NEUROLOGICAL: Gross neurological examination did not reveal any focal deficits. SKIN: No rashes. - Labs CBC & Chem 7: 07/08/20 06:33 07/08/20 06:33 Labs: Abnormal Lab Results - Last 24 Hours (Table) 07/07/20 07/07/20 07/07/20 Range/Units 11:22 13:19 13:22 WBC (3.8-10.6) k/uL Neutrophils # (1.3-7.7) k/uL VBG pH (7.31-7.41) VBG pCO2 (37-51) mmHg VBG HCO3 (24-28) mmol/L Sodium (137-145) mmol/L Chloride (98-107) mmol/L Carbon Dioxide (22-30) mmol/L Creatinine (0.52-1.04) mg/dL Glucose (74-99) mg/dL POC Glucose (mg/dL) 357 H (75-99) mg/dL Calcium (8.4-10.2) mg/dL Phosphorus (2.5-4.5) mg/dL Ferritin 712.2 H (10.0-291.0) ng/mL Total Protein (6.3-8.2) g/dL Albumin (3.5-5.0) g/dL Urine Protein 1+ H (Negative) Urine Glucose (UA) 4+ H (Negative) Urine Ketones 4+ H (Negative) Urine Blood Small H (Negative) Urine Bacteria Rare H (None) /hpf Urine Mucus Rare H (None) /hpf 07/07/20 07/07/20 07/07/20 Range/Units 13:54 14:03 14:41 WBC (3.8-10.6) k/uL Neutrophils # (1.3-7.7) k/uL VBG pH 6.96 L* (7.31-7.41) VBG pCO2 25 L (37-51) mmHg VBG HCO3 5 L* (24-28) mmol/L Sodium (137-145) mmol/L Chloride 116 H (98-107) mmol/L Carbon Dioxide <5 L* (22-30) mmol/L Creatinine 0.47 L (0.52-1.04) mg/dL Glucose 269 H (74-99) mg/dL POC Glucose (mg/dL) 291 H (75-99) mg/dL Calcium 7.0 L (8.4-10.2) mg/dL Phosphorus (2.5-4.5) mg/dL Ferritin (10.0-291.0) ng/mL Total Protein 5.9 L (6.3-8.2) g/dL Albumin 3.1 L (3.5-5.0) g/dL Urine Protein (Negative) Urine Glucose (UA) (Negative) Urine Ketones (Negative) Urine Blood (Negative) Urine Bacteria (None) /hpf Urine Mucus (None) /hpf 07/07/20 07/07/20 07/07/20 Range/Units 15:01 16:11 17:09 WBC (3.8-10.6) k/uL Neutrophils # (1.3-7.7) k/uL VBG pH (7.31-7.41) VBG pCO2 (37-51) mmHg VBG HCO3 (24-28) mmol/L Sodium (137-145) mmol/L Chloride (98-107) mmol/L Carbon Dioxide (22-30) mmol/L Creatinine (0.52-1.04) mg/dL Glucose (74-99) mg/dL POC Glucose (mg/dL) 292 H 228 H 184 H (75-99) mg/dL Calcium (8.4-10.2) mg/dL Phosphorus (2.5-4.5) mg/dL Ferritin (10.0-291.0) ng/mL Total Protein (6.3-8.2) g/dL Albumin (3.5-5.0) g/dL Urine Protein (Negative) Urine Glucose (UA) (Negative) Urine Ketones (Negative) Urine Blood (Negative) Urine Bacteria (None) /hpf Urine Mucus (None) /hpf 07/07/20 07/07/20 07/07/20 Range/Units 18:03 19:11 19:15 WBC (3.8-10.6) k/uL Neutrophils # (1.3-7.7) k/uL VBG pH (7.31-7.41) VBG pCO2 (37-51) mmHg VBG HCO3 (24-28) mmol/L Sodium 134 L (137-145) mmol/L Chloride 114 H (98-107) mmol/L Carbon Dioxide 9 L* (22-30) mmol/L Creatinine 0.42 L (0.52-1.04) mg/dL Glucose 115 H (74-99) mg/dL POC Glucose (mg/dL) 145 H 124 H (75-99) mg/dL Calcium (8.4-10.2) mg/dL Phosphorus 1.5 L (2.5-4.5) mg/dL Ferritin (10.0-291.0) ng/mL Total Protein (6.3-8.2) g/dL Albumin (3.5-5.0) g/dL Urine Protein (Negative) Urine Glucose (UA) (Negative) Urine Ketones (Negative) Urine Blood (Negative) Urine Bacteria (None) /hpf Urine Mucus (None) /hpf 07/07/20 07/07/20 07/07/20 Range/Units 20:07 21:05 21:53 WBC (3.8-10.6) k/uL Neutrophils # (1.3-7.7) k/uL VBG pH (7.31-7.41) VBG pCO2 (37-51) mmHg VBG HCO3 (24-28) mmol/L Sodium (137-145) mmol/L Chloride (98-107) mmol/L Carbon Dioxide (22-30) mmol/L Creatinine (0.52-1.04) mg/dL Glucose (74-99) mg/dL POC Glucose (mg/dL) 127 H 124 H 145 H (75-99) mg/dL Calcium (8.4-10.2) mg/dL Phosphorus (2.5-4.5) mg/dL Ferritin (10.0-291.0) ng/mL Total Protein (6.3-8.2) g/dL Albumin (3.5-5.0) g/dL Urine Protein (Negative) Urine Glucose (UA) (Negative) Urine Ketones (Negative) Urine Blood (Negative) Urine Bacteria (None) /hpf Urine Mucus (None) /hpf 07/07/20 07/07/20 07/07/20 Range/Units 22:56 23:38 23:59 WBC (3.8-10.6) k/uL Neutrophils # (1.3-7.7) k/uL VBG pH (7.31-7.41) VBG pCO2 (37-51) mmHg VBG HCO3 (24-28) mmol/L Sodium 132 L (137-145) mmol/L Chloride 111 H (98-107) mmol/L Carbon Dioxide 10 L (22-30) mmol/L Creatinine 0.46 L (0.52-1.04) mg/dL Glucose 227 H (74-99) mg/dL POC Glucose (mg/dL) 208 H 244 H (75-99) mg/dL Calcium 8.0 L (8.4-10.2) mg/dL Phosphorus (2.5-4.5) mg/dL Ferritin (10.0-291.0) ng/mL Total Protein (6.3-8.2) g/dL Albumin (3.5-5.0) g/dL Urine Protein (Negative) Urine Glucose (UA) (Negative) Urine Ketones (Negative) Urine Blood (Negative) Urine Bacteria (None) /hpf Urine Mucus (None) /hpf 07/08/20 07/08/20 07/08/20 Range/Units 00:44 01:52 02:54 WBC (3.8-10.6) k/uL Neutrophils # (1.3-7.7) k/uL VBG pH (7.31-7.41) VBG pCO2 (37-51) mmHg VBG HCO3 (24-28) mmol/L Sodium (137-145) mmol/L Chloride (98-107) mmol/L Carbon Dioxide (22-30) mmol/L Creatinine (0.52-1.04) mg/dL Glucose (74-99) mg/dL POC Glucose (mg/dL) 240 H 243 H 287 H (75-99) mg/dL Calcium (8.4-10.2) mg/dL Phosphorus (2.5-4.5) mg/dL Ferritin (10.0-291.0) ng/mL Total Protein (6.3-8.2) g/dL Albumin (3.5-5.0) g/dL Urine Protein (Negative) Urine Glucose (UA) (Negative) Urine Ketones (Negative) Urine Blood (Negative) Urine Bacteria (None) /hpf Urine Mucus (None) /hpf 07/08/20 07/08/20 07/08/20 Range/Units 03:54 04:53 05:57 WBC (3.8-10.6) k/uL Neutrophils # (1.3-7.7) k/uL VBG pH (7.31-7.41) VBG pCO2 (37-51) mmHg VBG HCO3 (24-28) mmol/L Sodium (137-145) mmol/L Chloride (98-107) mmol/L Carbon Dioxide (22-30) mmol/L Creatinine (0.52-1.04) mg/dL Glucose (74-99) mg/dL POC Glucose (mg/dL) 255 H 235 H 246 H (75-99) mg/dL Calcium (8.4-10.2) mg/dL Phosphorus (2.5-4.5) mg/dL Ferritin (10.0-291.0) ng/mL Total Protein (6.3-8.2) g/dL Albumin (3.5-5.0) g/dL Urine Protein (Negative) Urine Glucose (UA) (Negative) Urine Ketones (Negative) Urine Blood (Negative) Urine Bacteria (None) /hpf Urine Mucus (None) /hpf 07/08/20 07/08/20 07/08/20 Range/Units 06:33 06:33 06:55 WBC 10.9 H (3.8-10.6) k/uL Neutrophils # 8.7 H (1.3-7.7) k/uL VBG pH (7.31-7.41) VBG pCO2 (37-51) mmHg VBG HCO3 (24-28) mmol/L Sodium 134 L (137-145) mmol/L Chloride 108 H (98-107) mmol/L Carbon Dioxide 19 L (22-30) mmol/L Creatinine 0.51 L (0.52-1.04) mg/dL Glucose 242 H (74-99) mg/dL POC Glucose (mg/dL) 330 H (75-99) mg/dL Calcium 8.2 L (8.4-10.2) mg/dL Phosphorus (2.5-4.5) mg/dL Ferritin (10.0-291.0) ng/mL Total Protein (6.3-8.2) g/dL Albumin (3.5-5.0) g/dL Urine Protein (Negative) Urine Glucose (UA) (Negative) Urine Ketones (Negative) Urine Blood (Negative) Urine Bacteria (None) /hpf Urine Mucus (None) /hpf 07/08/20 07/08/20 07/08/20 Range/Units 07:57 08:54 12:23 WBC (3.8-10.6) k/uL Neutrophils # (1.3-7.7) k/uL VBG pH (7.31-7.41) VBG pCO2 (37-51) mmHg VBG HCO3 (24-28) mmol/L Sodium (137-145) mmol/L Chloride (98-107) mmol/L Carbon Dioxide (22-30) mmol/L Creatinine (0.52-1.04) mg/dL Glucose (74-99) mg/dL POC Glucose (mg/dL) 304 H 249 H 199 H (75-99) mg/dL Calcium (8.4-10.2) mg/dL Phosphorus (2.5-4.5) mg/dL Ferritin (10.0-291.0) ng/mL Total Protein (6.3-8.2) g/dL Albumin (3.5-5.0) g/dL Urine Protein (Negative) Urine Glucose (UA) (Negative) Urine Ketones (Negative) Urine Blood (Negative) Urine Bacteria (None) /hpf Urine Mucus (None) /hpf Microbiology - Last 24 Hours (Table) 07/07/20 10:45 Blood Culture - Preliminary Blood No Growth after 24 hours 07/07/20 10:45 Blood Culture - Preliminary Blood No Growth after 24 hours Assessment and Plan Plan: -Diabetic ketoacidosis and starvation ketosis: Anion gap resolved, further management as mentioned in 12 history -Covid 19 infection: She will not be started on any Decadron as patient doesn't have any significant respiratory symptoms and this Decadron may make DKA worse. -Anion gap metabolic acidosis: Secondary to diabetic ketoacidosis -Coronary artery disease patient will be resumed on home regimen of medications -Hyponatremia pseudohyponatremia from a hyperglycemia -Type 2 diabetes mellitus uncontrolled elevated blood sugars secondary to infection -Hyperlipidemia -Hypertension -Rheumatoid arthritis and patient is on monoclonal antibody injections once in 2 weeks which will be continued -DVT prophylaxis with subcutaneous Lovenox
--- NOTE | 2020-07-08 16:03 | CONS ---
CONSULTATION PULMONARY/CRITICAL CARE CONSULTATION: DATE OF SERVICE: 07/08/2020 This is a 55-year-old female who was admitted to the hospital on July 07. She apparently came into the hospital complaining of weakness. The patient has a history of heart disease, hypertension and diabetes for many years. She presented to the emergency department with complaints of increasing weakness, nausea and vomiting over the 4 or 5 days prior to admission. 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 Her symptoms have been primarily body aches, chills, chest congestion, mild cough, with nausea and vomiting. Over the last 24 hours or so she feels a bit more short of breath than normal and cannot complete full sentences; and when she takes a deep breath, she coughs. She denied any chest pain. There was no abdominal pain. There was no headache. She denied any fever currently. The patient was seen by Dr. Klein in the ER. He called me about the patient. The patient apparently according to him was having more issues with her DKA than with the COVID-19 infection. In fact, her chest x-ray was normal. Her room-air saturations were 97%. Today she is resting comfortably. She is off insulin drip. Her electrolytes are back to normal. Her anion gap is normal. Her bicarbonate is elevated. Blood sugar is under much better control. CURRENT MEDICATIONS: Current medications include Lipitor, Lasix, Imdur, eye drops, aspirin, Ranexa, verapamil, Requip, metoprolol, metformin, Praluent pen, Trulicity and Accupril. Other medications include Plavix. ALLERGIES: ALLERGIES include ACTOS and ZOCOR. MEDICAL HISTORY: Medical history is positive for CAD, chest pain, diabetes mellitus, fibromyalgia, hyperlipidemia, hypertension and rheumatoid arthritis. Other medical history includes sciatic neuralgia, particularly on the right side, chronic low back pain, and tingling and numbness in her feet and toes, maybe representing diabetic neuropathy. SURGICAL HISTORY: Surgical history includes adenoidectomy, back surgery, , cholecystectomy, heart catheterization, stent placement, hysterectomy, tonsillectomy, tubal ligation and right shoulder surgery. SOCIAL HISTORY: Negative for tobacco use. She denies any alcohol or illicit drug use. FAMILY HISTORY: Positive for brain cancer in her father, diabetes in her daughter, a sister with thyroid disease and his mother with hypertension and Bright's disease. REVIEW OF SYSTEMS: CONSTITUTIONAL: Weakness, muscle aches, joint aches. NEUROLOGIC: Negative. HEENT: Negative. CARDIOVASCULAR: Negative. PULMONARY: Mild shortness of breath, cough with deep inspiration. GI: Negative. : Negative. RHEUMATOLOGIC: Negative. IMMUNOLOGIC: Negative. ENDOCRINOLOGIC: Negative. DERMATOLOGIC: Negative. PHYSICAL EXAMINATION: VITAL SIGNS: Current vital signs are reviewed. Temperature is 97.6, heart rate 86, respiratory rate 18, blood pressure 101/66, mean 77, two-liter saturation 98%. GENERAL APPEARANCE: Appears in no acute distress. Respiratory distress. No audible wheezing or use of accessory muscles. HEENT: Examination is grossly unremarkable. NECK: Supple. Full range of motion. No adenopathy. Neck veins are flat. CARDIOVASCULAR: Examination reveals regular rhythm and rate. Heart rate 86 beats per minute. S1, S2 normal. LUNGS: Lungs reveal clear breath sounds. No wheezes or rhonchi. The patient does cough on deep inspiration. ABDOMEN: Soft. Bowel sounds are heard. EXTREMITIES: Intact. No cyanosis, clubbing or edema. SKIN: Without rash. NEUROLOGIC: Neurologic examination is nonfocal. LABS/IMAGING: Reviewed. Most recent labs show white count 10.9, hemoglobin 13.4, hematocrit 39.8, platelet count 314,000. Her venous blood gas initially showed a pH of 6.96. PTT 18.8. D-dimer is 0.93. Sodium 134, potassium 4.2, chloride 108, CO2 up to 119. Anion gap is 7. BUN and creatinine were 8 and 0.51. Most recent blood sugar was 199. Calcium 8.2, phosphorus 1.5, magnesium 2.0, ferritin 712. LDH 766. C-reactive protein 60.7, procalcitonin level 0.07. Urine is light yellow, clear, pH 5.5, specific gravity 1.019, 1+ protein, 4+ glucose, 4+ ketones and small amount of blood. There are rare bacteria. Acetone was positive. Microbiology is currently all negative. A chest x-ray showed no acute abnormality. MEDICATIONS: Reviewed. She is currently on Tylenol, aspirin, Lipitor, Plavix, Lovenox, insulin, Levemir insulin, Imdur, eye drops, metoprolol, Zofran p.r.n., Ranexa, Requip, and saline IV. ASSESSMENT: 1. Diabetic ketoacidosis, resolved. 2. COVID-19 infection without significant pneumonia or hypoxemia. 3. History of hyperlipidemia. 4. History of diabetes with diabetic neuropathy. 5. History of hypertension. 6. History of coronary artery disease. 7. Fibromyalgia. 8. Hyperlipidemia. 9. Hypertension. 10.Rheumatoid arthritis. 11.Diabetic neuropathy. 12.Right-sided sciatic neuralgia. 13.Previous catheterization with stent placement. PLAN: The patient is doing much better. She likely will be discharged home in the next 24 hours or so. No respiratory issues at this time. Will continue to follow. The patient might benefit from vitamin C, zinc and vitamin D3. I do not believe she needs Decadron. No additional recommendations are made. Prognosis is guarded. MMODL / IJN: [id number] / MTDD
[2020-07-08 16:39] LABS: Glucose,Whole Blood 248 mg/dL (75-99)
[2020-07-08 20:28] LABS: Glucose,Whole Blood 331 mg/dL (75-99)
[2020-07-08] MEDS: LATANOPROST 0.005% OPHTH DROPS 2.5 ML BTL BOTH EYES SCH (22:03)
[2020-07-08] MEDS: VERAPAMIL SR 120 MG TABLET.ER PO SCH (22:46)
[2020-07-09 05:35] VITALS: RESP 16; TEMP 98.1
[2020-07-09] MEDS: ACETAMINOPHEN TAB 325 MG TAB PO PRN (06:20)
[2020-07-09] MEDS: ONDANSETRON 4 MG/2 ML VIAL IVP PRN (06:20)
[2020-07-09 06:24] LABS: African American GFR (CKD) >90 (>60 ml/min/1.73 sqM); Anion Gap 1 mmol/L; Blood Urea Nitrogen 8 mg/dL (7-17); Carbon Dioxide 26 mmol/L (22-30); Chloride 108 mmol/L (98-107); Glucose 89 mg/dL (74-99); Magnesium 1.8 mg/dL (1.6-2.3); Non-African American GFR(CKD) >90 (>60 ml/min/1.73 sqM); Potassium 3.5 mmol/L (3.5-5.1); Sodium 135 mmol/L (137-145)
[2020-07-09] MEDS: SODIUM CHLORIDE 0.9% 1,000 ML IV SCH ×4 (06:51→13:10)
[2020-07-09] MEDS ORDERED: INSULIN DETEMIR (LEVEMIR) 100 UNIT/ML SYR SQ SCH (07:00)
[2020-07-09] MEDS: INSULIN ASPART (NovoLOG) 100 UNIT/ML VIAL SQ SCH ×2 (07:17→13:10)
[2020-07-09] MEDS: ISOSORBIDE MONONITRATE ER 60 MG TAB.ER.24H PO SCH (10:01)
[2020-07-09] MEDS: METOPROLOL SUCCINATE (ER) 100 MG TAB.ER.24H PO SCH (10:01)
[2020-07-09] MEDS: ATORVASTATIN 80 MG TAB PO SCH (10:01)
[2020-07-09] MEDS: ASPIRIN 81 MG PO SCH (10:01)
[2020-07-09] MEDS: ENOXAPARIN 40 MG/0.4 ML SYRINGE SQ SCH (10:01)
[2020-07-09] MEDS: CLOPIDOGREL 75 MG TAB PO SCH (10:02)
[2020-07-09] MEDS: RANOLAZINE 500 MG TAB.ER.12H PO SCH (10:36)
[2020-07-09 10:53] VITALS: BP 118/76; PULSE 94
--- NOTE | 2020-07-09 12:10 | P.PN ---
Subjective Progress Note Date: 07/09/20 Principal diagnosis: Acute COVID 19 infection without significant pneumonia or hypoxemia, diabetic ketoacidosis resolved 55-year-old white female patient who was admitted to the hospital on 07/07/2020 with weakness, shortness of breath, nausea and vomiting for 4-5 days prior to admission. Patient works in a [employer], and tested positive for COVID 19 infection. Her primary symptoms were body aches, chills, chest congestion, mild cough with nausea and vomiting. She also developed diabetic ketoacidosis, she does have history of diabetes mellitus, coronary artery disease, fibromyalgia, hyperlipidemia, hypertension and rheumatoid arthritis. She has been rehydrated, she received insulin infusion per DKA protocol, days labs showed anion gap of 1, her sodium is 135, potassium is 3.5, chloride is 108, BUN of 8, creatinine 0.44. Insulin drip has been discontinued, she has had mild nausea, no vomiting, she feels weak, but denies any significant pulmonary symptoms. Chest x-ray on admission showed no acute process, normal pulse ox is 98%, hemodynamically she is stable, she's been afebrile. She is on consistent carbohydrate diet, her vitals have been stable, blood cultures show no growth. She is on Lovenox, no steroids, she is on IV hydration with 0.9, sitting at a rate of 100 ML per hour. Objective - Vital Signs Vital signs: Vital Signs Temp 98.1 F 07/09/20 10:53 Pulse 94 07/09/20 10:53 Resp 16 07/09/20 10:53 BP 118/76 07/09/20 10:53 Pulse Ox 98 07/09/20 10:53 Intake & Output 07/08/20 07/09/20 07/09/20 18:59 06:59 18:59 Intake Total 7800.198 4996 Balance 9554.515 8658 Weight 78.3 kg 77.4 kg Intake: IV 800 800 Sodium Chloride 0.9% 1, 800 800 000 ml @ 100 mls/hr IV . Q10H [facility] Rx#:[id number] Intake, IV Titration 5.133 Amount Insulin Regular 100 unit 5.133 In Sodium Chloride 0.9% 100 ml @ 0.1 UNITS/KG/HR 7.468 mls/hr IV .[id number] [facility] Rx#:[id number] Oral 240 500 - Exam GENERAL EXAM: Alert, very pleasant, 55-year-old white female, on room air, with a pulse ox of 98% comfortable in no apparent distress. HEAD: Normocephalic/atraumatic. EYES: Normal reaction of pupils, equal size. Conjunctiva pink, sclera white. NOSE: Clear with pink turbinates. THROAT: No erythema or exudates. NECK: No masses, no JVD, no thyroid enlargement, no adenopathy. CHEST: No chest wall deformity. Symmetrical expansion. LUNGS: Equal air entry with no crackles, wheeze, rhonchi or dullness. CVS: Regular rate and rhythm, normal S1 and S2, no gallops, no murmurs, no rubs ABDOMEN: Soft, nontender. No hepatosplenomegaly, normal bowel sounds, no guarding or rigidity. EXTREMITIES: No clubbing, no edema, no cyanosis, 2+ pulses and upper and lower extremities. MUSCULOSKELETAL: Muscle strength and tone normal. SPINE: No scoliosis or deformity SKIN: No rashes CENTRAL NERVOUS SYSTEM: Alert and oriented -3. No focal deficits, tone is normal in all 4 extremities. PSYCHIATRIC: Alert and oriented -3. Appropriate affect. Intact judgment and insight. - Labs CBC & Chem 7: 07/08/20 06:33 07/09/20 05:17 Labs: Abnormal Lab Results - Last 24 Hours (Table) 07/08/20 07/08/20 07/08/20 Range/Units 12: 16:37 20:26 Sodium (137-145) mmol/L Chloride (98-107) mmol/L Creatinine (0.52-1.04) mg/dL POC Glucose (mg/dL) 199 H 248 H 331 H (75-99) mg/dL Calcium (8.4-10.2) mg/dL 07/09/20 Range/Units 05:17 Sodium 135 L (137-145) mmol/L Chloride 108 H (98-107) mmol/L Creatinine 0.44 L (0.52-1.04) mg/dL POC Glucose (mg/dL) (75-99) mg/dL Calcium 8.0 L (8.4-10.2) mg/dL Microbiology - Last 24 Hours (Table) 07/07/20 10:45 Blood Culture - Preliminary Blood No Growth after 24 hours 07/07/20 10:45 Blood Culture - Preliminary Blood No Growth after 24 hours Assessment and Plan Plan: Assessment: #1. Acute COVID 19 infection without significant pneumonia or hypoxemia, she did not require any steroids, Remdesivir or, less than plasma #2. Acute diabetic ketoacidosis related to the above, resolved #3. History of hyperlipidemia #4. History of diabetes with diabetic neuropathy #5. History of hypertension #6. History of coronary artery disease #7. Fibromyalgia #8. Hyperlipidemia #9. Hypertension #10. Rheumatoid arthritis #11. Right-sided neuralgia #12. Previous catheterization with stent placement Plan: Patient is doing well, denies any pulmonary symptoms, she is maintaining stable O2 saturations on room air, doing well, no cough, no shortness of breath, and continue on vitamin C, zinc and vitamin D 3, anticipate discharge home today or tomorrow, if cleared by medicine I performed a history & physical examination of the patient and discussed their management with my nurse practitioner, Isha Martin. I reviewed the nurse practitioner's note and agree with the documented findings and plan of care. Lung sounds are positive for diminished breath sounds. The findings and the imp ression was discussed with the patient. I attest to the documentation by the nurse practitioner. Time with Patient: Less than 30
[2020-07-09] MEDS ORDERED: NON FORMULARY DRUG (Dulaglutide [Trulicity] 1.5 MG/0.5 ML Pen.Injctr) SQ SCH (13:25)
[2020-07-09] MEDS ORDERED: POTASSIUM CHLORIDE ER 20 MEQ TAB.ER PO STA (14:22)
--- NOTE | 2020-07-09 14:28 | P.DS ---
Providers Date of admission: 07/07/20 12:13 Attending physician: Srinath Maier Consults: 07/07/20 12:15 Consult Physician Urgent Consulting Provider: Carmine Ervin Reason/Comments: DKA Do you want consulting provider notified?: Yes Primary care physician: [facility] Course: 55-year-old female came in with compensative nausea vomiting going on for 5 days and patient is found to have severe anion gap metabolic acidosis and severe acidosis with bicarbonate less than 5 patient was diagnosed with covid 19 about 5 days ago patient started having symptoms about the 10-12 days ago. Patient mostly had body aches chills congestion denied any sick shortness of breath mild cough and nausea vomiting severe for last 4 days. Patient has not been eating or drinking well. Patient is found to have highly elevated blood sugars. Patient is positive for acetone tachycardic at heart rate of 119 although patient usually uses metoprolol probably didn't tolerate this medication as she is been throwing up. Patient has history of insulin-dependent type 2 diabetes mellitus. Patient is feeling severely tired and fatigued denied any fever last 24 hours. 07/08/2020 DKA resolved the patient is still not feeling well. Although patient nausea improves patient was started on liquid diet will advance as tolerated patient IV insulin will be discontinued, patient will be started on long-acting insulin at home dose along with sliding scale with each meal and patient will be switched to normal saline at 100 mL per hour if she is doing okay which most probably will be discharged tomorrow 07/09/2020 Patient blood sugars are still high although her DKA and acidosis significantly resolved patient is able to tolerate diet. Patient is not having nausea vomiting patient has a grade 1 diastolic dysfunction patient was getting large amounts of fluids unsure patient will require Lasix down the line that need to be reassessed as an outpatient. For now we'll hold off on the Lasix will hold off on theACE inhibitor as well. Patient blood pressures are low normal at this time patientuses trulicity which she is supposed to get today unsure how her blood sugars and respond after to elicit he because of that reason I'm not increasing her Lantus dose as of now if her blood sugars continue to be high. I suggested that she should take 1010 extremity units daily of Lantus insulin for blood sugars are above 200 after1 day after trulicity and 20units of Lantus extra daily for blood sugars continue to be about 300. PHYSICAL EXAMINATION: GENERAL: The patient is alert and oriented x3, not in any acute distress. Well developed, well nourished. HEENT: Pupils are round and equally reacting to light. EOMI. No scleral icterus. No conjunctival pallor. Normocephalic, atraumatic. No pharyngeal erythema. No thyromegaly. CARDIOVASCULAR: S1 and S2 present. No murmurs, rubs, or gallops. PULMONARY: Chest is clear to auscultation, no wheezing or crackles. ABDOMEN: Soft, nontender, nondistended, normoactive bowel sounds. No palpable organomegaly. MUSCULOSKELETAL: No joint swelling or deformity. EXTREMITIES: No cyanosis, clubbing, or pedal edema. NEUROLOGICAL: Gross neurological examination did not reveal any focal deficits. SKIN: No rashes. Assessment and Plan Plan: -Diabetic ketoacidosis and starvation ketosis: Anion gap resolved, further management as mentioned in the interval history -Covid 19 infection: -Anion gap metabolic acidosis: Secondary to diabetic ketoacidosis -Coronary artery disease patient will be resumed on home regimen of medications -grade 1 diastolic dysfunction patient isnot in heart failure exacerbation presently discontinued Lasix may require Lasix down the line need of which need to be reassessed as an outpatient again -Hyponatremia pseudohyponatremia from a hyperglycemia -Type 2 diabetes mellitus uncontrolled elevated blood sugars secondary to infection -Hyperlipidemia -Hypertension -Rheumatoid arthritis and patient is on monoclonal antibody injections once in 2 weeks which will be continued Patient Condition at Discharge: Good Plan - Discharge Summary Discharge Rx Participant: No New Discharge Prescriptions: New Insulin Detemir (Levemir) [Levemir] 60 unit SQ DAILY@0700 syr Continue Clopidogrel [Plavix] 75 mg PO DAILY #30 tab Atorvastatin [Lipitor] 80 mg PO DAILY Latanoprost Ophth [Xalatan 0.005%] 1 drops BOTH EYES HS Isosorbide Mononitrate [Imdur] 120 mg PO DAILY Verapamil HCl [Verelan Pm] 100 mg PO HS Ranolazine [Ranexa] 1,000 mg PO BID Aspirin EC [Ecotrin Low Dose] 81 mg PO DAILY rOPINIRole HCL [Requip] 0.25 mg PO HS metFORMIN HCL [Glucophage] 850 mg PO BID Metoprolol Succinate (ER) [Toprol XL] 100 mg PO DAILY Dulaglutide [Trulicity] 1.5 mg SQ TH Alirocumab [Praluent Pen] 150 mg SQ Q14D Discontinued Furosemide [Lasix] 40 mg PO DAILY Quinapril HCl [Accupril] 5 mg PO DAILY Discharge Medication List Clopidogrel [Plavix] 75 mg PO DAILY #30 tab 06/15/17 [Rx] Atorvastatin [Lipitor] 80 mg PO DAILY 11/01/17 [History] Isosorbide Mononitrate [Imdur] 120 mg PO DAILY 04/06/18 [History] Latanoprost Ophth [Xalatan 0.005%] 1 drops BOTH EYES HS 04/06/18 [History] Aspirin EC [Ecotrin Low Dose] 81 mg PO DAILY 09/06/18 [History] Ranolazine [Ranexa] 1,000 mg PO BID 09/06/18 [History] Verapamil HCl [Verelan Pm] 100 mg PO HS 09/06/18 [History] rOPINIRole HCL [Requip] 0.25 mg PO HS 05/21/19 [History] Metoprolol Succinate (ER) [Toprol XL] 100 mg PO DAILY 08/29/19 [History] metFORMIN HCL [Glucophage] 850 mg PO BID 08/29/19 [History] Alirocumab [Praluent Pen] 150 mg SQ Q14D 07/07/20 [History] Dulaglutide [Trulicity] 1.5 mg SQ TH 07/07/20 [History] Insulin Detemir (Levemir) [Levemir] 60 unit SQ DAILY@0700 syr 07/09/20 [Rx] Follow up Appointment(s)/Referral(s): Anthony Arora DO [Primary Care Provider] - 3 Days
[2020-07-12 09:48] LABS: Glucose,Whole Blood 78 mg/dL (75-99)
[2020-07-12 09:48] LABS: Glucose,Whole Blood 64 mg/dL (75-99)
[2020-07-12 09:48] LABS: Glucose,Whole Blood 157 mg/dL (75-99)
[2020-07-12 09:48] LABS: Glucose,Whole Blood 182 mg/dL (75-99)
== END 2020-07-09 15:34 | disposition home or self-care (01) | DRG 637 ==
LOC: EC 10:08 → 4SSUR 12:13 → 3SCARD 12:43 → 6NMEDSUR 07-08 23:39
PROVIDERS: ADMIT Internal Medicine; ATTEND Internal Medicine
DX: E11.10 Type 2 diabetes mellitus with ketoacidosis without coma (principal); U07.1 COVID-19; E87.1 Hypo-osmolality and hyponatremia; I50.32 Chronic diastolic (congestive) heart failure; E78.5 Hyperlipidemia, unspecified; E86.0 Dehydration; I11.0 Hypertensive heart disease with heart failure; I25.10 Atherosclerotic heart disease of native coronary artery without angina pectoris; E11.40 Type 2 diabetes mellitus with diabetic neuropathy, unspecified; M06.9 Rheumatoid arthritis, unspecified; M79.7 Fibromyalgia; Z79.01 Long term (current) use of anticoagulants; Z79.02 Long term (current) use of antithrombotics/antiplatelets; Z79.4 Long term (current) use of insulin; Z79.82 Long term (current) use of aspirin; Z79.899 Other long term (current) drug therapy; Z80.8 Family history of malignant neoplasm of other organs or systems; Z82.49 Family history of ischemic heart disease and other diseases of the circulatory system; Z83.3 Family history of diabetes mellitus; Z90.49 Acquired absence of other specified parts of digestive tract; Z90.710 Acquired absence of both cervix and uterus; Z95.5 Presence of coronary angioplasty implant and graft
CPT/HCPCS: 36415; 71045; 80048; 80051; 80053; 81001; 82009; 82565; 82728; 82803; 82947; 83605; 83615; 83735; 84100; 84145; 84520; 85025; 85379; 85610; 85730; 86140; 87040; 93005; 96360; 96361; 96374; 96376; 99291

== ENCOUNTER → 2020-08-18 | Outpatient (CLI) | payer MEDICAID ==
[2020-08-18 22:41] LABS: Basophils # (A) 0.09 X 10*3/uL (0.00-0.10); Basophils % (A) 0.7 %; Eosinophils # (A) 0.12 X 10*3/uL (0.04-0.35); Eosinophils % (A) 0.9 %; HCT 42.8 % (37.2-46.3); HGB 14.1 g/dL (12.0-15.0); Lymphocytes # (A) 3.98 X 10*3/uL (0.90-5.00); Lymphocytes % (A) 31.5 %; MCH 31.4 pg (27.0-32.0); MCHC 32.9 g/dL (32.0-37.0); MCV 95.3 fL (80.0-97.0); Mean Platelet Volume 8.6 fL (9.5-12.2); Monocytes # (A) 0.74 X 10*3/uL (0.20-1.00); Monocytes % (A) 5.9 %; Neutrophils # (A) 7.61 X 10*3/uL (1.80-7.70); Neutrophils % (A) 60.2 %; Platelet Count 493 X 10*3/uL (140-440); RBC 4.49 X 10*6/uL (4.10-5.20); RDW 12.3 % (11.5-14.5); WBC 12.64 X 10*3/uL (4.50-10.00)
[2020-08-19 02:12] LABS: Hemoglobin A1C 10.5 % (4.0-6.0)
[2020-08-19 04:28] LABS: African American GFR (CKD) 113.8 (60.0-200.0); Albumin 4.7 g/dL (3.80-4.90); Albumin/Globulin Ratio 2.35 (1.60-3.17); Anion Gap 11.3 mmol/L (4.00-12.00); BUN/Creat Ratio 35.71 Ratio (12.00-20.00); Calcium 9.9 mg/dL (8.7-10.3); Carbon Dioxide 24.7 mmol/L (21.6-31.8); Chol/HDL Ratio 2.11; LDL Cholesterol,Calculated 73.6 mg/dL (0.0-131.0); Non-African American GFR(CKD) 98.2 (60.0-200.0); Potassium 4.7 mmol/L (3.5-5.5); Total Bilirubin 0.7 mg/dL (0.2-1.2); Total Protein 6.7 g/dL (6.2-8.2); VLDL Calculation 10.4 mg/dL (5.00-40.00)
== END | disposition home or self-care (01) ==
LOC: LABWHC1 15:25
PROVIDERS: ATTEND Physician Assistant
DX: I25.118 Atherosclerotic heart disease of native coronary artery with other forms of angina pectoris (principal); I10 Essential (primary) hypertension; E78.2 Mixed hyperlipidemia; E55.9 Vitamin D deficiency, unspecified; H40.059 Ocular hypertension, unspecified eye; E11.65 Type 2 diabetes mellitus with hyperglycemia; M43.26 Fusion of spine, lumbar region
CPT/HCPCS: 36415; 80053; 80061; 82306; 82550; 83036; 84443; 85025

== ENCOUNTER → 2020-09-11 | Outpatient (CLI) | payer MEDICAID ==
[2020-09-12 02:38] LABS: ALT 19 U/L (8-44); AST 19 U/L (13-35); Albumin/Globulin Ratio 1.46 (1.60-3.17); Alkaline Phosphatase 103 U/L (41-126); BUN/Creat Ratio 24.44 Ratio (12.00-20.00); C Reactive Protein <0.4 mg/dL (0.0-0.8); Carbon Dioxide 28.9 mmol/L (21.6-31.8); Chloride 104 mmol/L (96-109); Globulin 2.8 g/dL (1.6-3.3); Glucose 240 mg/dL (70-110); Non-African American GFR(CKD) 72.5 (60.0-200.0); Potassium 4.5 mmol/L (3.5-5.5); Rheumatoid Factor, Qnt 173 IU/mL (0-15); Sodium 141 mmol/L (135-145); Total Bilirubin 0.6 mg/dL (0.3-1.2); Total Protein 6.9 g/dL (6.2-8.2); Uric Acid 4.2 mg/dL (2.9-7.7)
[2020-09-12 03:31] LABS: Cyclic Citrull Pep IgG Unit <0.5 U/mL; Cyclic Citrullinated Pep IgG NEGATIVE (NEGATIVE)
== END | disposition home or self-care (01) ==
LOC: LABWHC1 15:44
PROVIDERS: ATTEND Physician Assistant
DX: M62.81 Muscle weakness (generalized) (principal); M79.7 Fibromyalgia; G89.29 Other chronic pain; M13.0 Polyarthritis, unspecified
CPT/HCPCS: 36415; 80053; 84550; 85652; 86038; 86140; 86200; 86431; 86618

== ENCOUNTER 2020-09-16 17:54 | Emergency (ER) | payer MEDICAID ==
[2020-09-16 18:04] VITALS: RESP 18
[2020-09-16] MEDS ORDERED: LIDOCAINE 1%-EPI 1:100,000 20 ML VIAL SQ STA (19:06)
[2020-09-16] MEDS ORDERED: MORPHINE SULFATE 4 MG/ML SYRINGE IVP STA (19:06)
[2020-09-16 19:47] LABS: Basophils % (A) 0 %; Eosinophils # (A) 0.3 k/uL (0-0.7); Eosinophils % (A) 2 %; HCT 40.4 % (34.0-46.0); HGB 13.6 gm/dL (11.4-16.0); Lymphocytes # (A) 1.8 k/uL (1.0-4.8); Lymphocytes % (A) 12 %; MCH 30.9 pg (25.0-35.0); MCHC 33.6 g/dL (31.0-37.0); MCV 91.9 fL (80.0-100.0); Mean Platelet Volume 6.3; Monocytes # (A) 0.3 k/uL (0-1.0); Monocytes % (A) 2 %; Neutrophils # (A) 11.9 k/uL (1.3-7.7); Neutrophils % (A) 83 %; Platelet Count 421 k/uL (150-450); RBC 4.39 m/uL (3.80-5.40); RDW 12.5 % (11.5-15.5); WBC 14.4 k/uL (3.8-10.6)
[2020-09-16 19:55] LABS: ALT 16 U/L (4-34); AST 21 U/L (14-36); African American GFR (CKD) >90 (>60 ml/min/1.73 sqM); Albumin 4.2 g/dL (3.5-5.0); Alkaline Phosphatase 97 U/L (38-126); Anion Gap 8 mmol/L; Blood Urea Nitrogen 21 mg/dL (7-17); Calcium 9.6 mg/dL (8.4-10.2); Carbon Dioxide 29 mmol/L (22-30); Chloride 99 mmol/L (98-107); Glucose 207 mg/dL (74-99); Non-African American GFR(CKD) >90 (>60 ml/min/1.73 sqM); Potassium 4.4 mmol/L (3.5-5.1); Sodium 136 mmol/L (137-145); Total Protein 6.9 g/dL (6.3-8.2)
[2020-09-16] MEDS ORDERED: CEPHALEXIN 500 MG CAP PO STA (20:50)
--- NOTE | 2020-09-16 20:55 | ED ---
General Adult HPI - General Chief complaint: Skin/Abscess/Foreign Body Stated complaint: Female Time Seen by Provider: 09/16/20 18:00 Source: patient Mode of arrival: ambulatory Limitations: no limitations - History of Present Illness Initial comments: 55-year-old female past medical history of diabetes, hypertension, coronary artery disease who presents to the emergency room and from Dr. Huertas's office. States that she developed a pimple on her left labia a few days ago. Reports that it continued to get larger in size. No history of similar in the past. He has caused her significant pain when she sits or walks. She denies any fevers or chills. No nausea or vomiting. No changes in her urination to include dysuria, hematuria or difficulty voiding. Denies diarrhea, constipation, melenic stools or hematochezia. No abnormal vaginal bleeding or discharge. No history of MRSA. Her primary care doctor attempted to niles the abscess however was having difficulty therefore sent the patient to the emergency department for further evaluation - Related Data Home Medications Medication Instructions Recorded Confirmed Atorvastatin [Lipitor] 80 mg PO DAILY 11/01/17 09/16/20 Isosorbide Mononitrate [Imdur] 120 mg PO DAILY 04/06/18 09/16/20 Latanoprost Ophth [Xalatan 0.005%] 1 drops BOTH EYES HS 04/06/18 09/16/20 Aspirin EC [Ecotrin Low Dose] 81 mg PO DAILY 09/06/18 09/16/20 Ranolazine [Ranexa] 1,000 mg PO BID 09/06/18 09/16/20 Verapamil HCl [Verelan Pm] 100 mg PO HS 09/06/18 09/16/20 rOPINIRole HCL [Requip] 0.25 mg PO HS 05/21/19 09/16/20 Metoprolol Succinate (ER) [Toprol 100 mg PO DAILY 08/29/19 09/16/20 XL] Alirocumab [Praluent Pen] 150 mg SQ Q14D 07/07/20 09/16/20 Dulaglutide [Trulicity] 1.5 mg SQ WE 07/07/20 09/16/20 Ergocalciferol (Vitamin D2) 1,250 mcg PO RICHTER 09/16/20 09/16/20 [Drisdol (50,000 Iu)] Furosemide [Lasix] 40 mg PO DAILY PRN 09/16/20 09/16/20 INSULIN ASPART (NovoLOG) [NovoLOG See Protocol SQ AC-TID 09/16/20 09/16/20 (formulary)] Insulin Glargine [Lantus] 50 unit SQ DAILY 09/16/20 09/16/20 Ondansetron [Zofran] 4 - 8 mg PO Q8H PRN 09/16/20 09/16/20 Vit C/E/Zn/Coppr/Lutein/Zeaxan 1 cap PO BID 09/16/20 09/16/20 [Preservision Areds 2 Softgel] cycloSPORINE 0.05% OPHTH SOLN 1 applicator BOTH EYES BID 09/16/20 09/16/20 [Restasis] methocarbamoL [Robaxin] 750 mg PO TID PRN 09/16/20 09/16/20 Previous Rx's Medication Instructions Recorded Clopidogrel [Plavix] 75 mg PO DAILY #30 tab 06/15/17 Cephalexin [Keflex] 500 mg PO Q6HR #28 cap 09/16/20 Allergies Allergy/AdvReac Type Severity Reaction Status Date / Time pioglitazone [From Actos] Allergy Swelling Verified 09/16/20 20:24 simvastatin [From Zocor] AdvReac muscle Verified 09/16/20 20:24 spasms Review of Systems ROS Statement: Those systems with pertinent positive or pertinent negative responses have been documented in the HPI. ROS Other: All systems not noted in ROS Statement are negative. Past Medical History Past Medical History: Coronary Artery Disease (CAD), Chest Pain / Angina, Diabetes Mellitus, Fibromyalgia, Hyperlipidemia, Hypertension, Rheumatoid Arthritis (RA) Additional Past Medical History / Comment(s): occ. 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 Covid + June 2020, DKA June 2020 History of Any Multi-Drug Resistant Organisms: None Reported Past Surgical History: Adenoidectomy, Back Surgery, Section, Cholecystectomy, Heart Catheterization, Heart Catheterization With Stent, Hyster ectomy, Orthopedic Surgery, Tonsillectomy, Tubal Ligation Additional Past Surgical History / Comment(s): RIGHT SHOULDER ARTHROSCOPY, COLONOSCOPY, LOW BACK SURGERY WITH RODS/SCREWS, 8 heart stents, Right carpal tunnel, Past Anesthesia/Blood Transfusion Reactions: No Reported Reaction Date of Last Stent Placement:: 10/2017 Past Psychological History: No Psychological Hx Reported Smoking Status: Never smoker Past Alcohol Use History: None Reported Past Drug Use History: None Reported - Past Family History Father Family Medical History: Cancer Additional Family Medical History / Comment(s): Brain CA Daughter(s) Family Medical History: Diabetes Mellitus Additional Family Medical History / Comment(s): Patient has 2 sisters with no significant past medical history Sister(s) Family Medical History: Thyroid Disorder Mother Family Medical History: Hypertension, Renal Disease Additional Family Medical History / Comment(s): brights disease General Exam Limitations: no limitations General appearance: alert, in no apparent distress GI/Abdominal exam: Present: soft, normal bowel sounds. Absent: distended, te nderness, guarding, rebound, rigid External exam: Present: swelling (left labia swelling with induration and abscess measuring 3.0 x 1.5 cm. Overlying central area of fluctuance. non draining. Does not extend to rectum) Course Vital Signs 09/16/20 09/16/20 17:59 21:06 Temperature 98.9 F 98.1 F Pulse Rate 103 H 102 H Respiratory 18 18 Rate Blood Pressure 162/91 142/98 O2 Sat by Pulse 98 96 Oximetry Procedures - Incision & Drainage Consent Obtained: written consent Site: vulva/vagina Size (cm): 3 Anesthetic Used: lidocaine 1%, with epi Amount (mLs): 6 I&D Cleaning Method: Chloroprep Sterile Field Used?: Yes Scalpel Used: #11 Needle Aspiration Performed?: No Irrigation Performed?: No I&D Drainage Obtained: Pus, Blood Culture Obtained?: Yes Patient Tolerated Procedure: well, no complications Medical Decision Making - Medical Decision Making Upon arrival patient was placed into room 21. A thorough history and physical exam was performed. Patient does have a large left labial abscess. She does have a history of diabetes I did recommend laboratory studies. They're reviewed and demonstrated a white count of 14.4. Glucose is 207. I did incise and drain the patient's left labial abscess with return of approximately 3 mL of purulent drainage. Loculations are broken up. Patient does have an associated cellulitis. The patient was given a dose of Keflex. She will be placed on antibiotics at home. She is instructed to keep the area clean and dry. Place warm compresses to the site and express the lesion as tolerated. Follow-up with her primary care doctor in 2-4 days. Return to the emergency department for any new or worsening symptoms. Prescription return parameters were given to the patient. She does not demonstrate any signs of fournieres at this time. Patient agreed to this treatment plan and she was discharged home in stable condition - Lab Data Result diagrams: 09/16/20 19:37 09/16/20 19:37 Lab Results 09/16/20 09/16/20 Range/Units 19:37 19:37 WBC 14.4 H (3.8-10.6) k/uL RBC 4.39 (3.80-5.40) m/uL Hgb 13.6 (11.4-16.0) gm/dL Hct 40.4 (34.0-46.0) % MCV 91.9 (80.0-100.0) fL MCH 30.9 (25.0-35.0) pg MCHC 33.6 (31.0-37.0) g/dL RDW 12.5 (11.5-15.5) % Plt Count 421 (150-450) k/uL MPV 6.3 Neutrophils % 83 % Lymphocytes % 12 % Monocytes % 2 % Eosinophils % 2 % Basophils % 0 % Neutrophils # 11.9 H (1.3-7.7) k/uL Lymphocytes # 1.8 (1.0-4.8) k/uL Monocytes # 0.3 (0-1.0) k/uL Eosinophils # 0.3 (0-0.7) k/uL Basophils # 0.0 (0-0.2) k/uL Sodium 136 L (137-145) mmol/L Potassium 4.4 (3.5-5.1) mmol/L Chloride 99 (98-107) mmol/L Carbon Dioxide 29 (22-30) mmol/L Anion Gap 8 mmol/L BUN 21 H (7-17) mg/dL Creatinine 0.64 (0.52-1.04) mg/dL Est GFR (CKD-EPI)AfAm >90 (>60 ml/min/1.73 sqM) Est GFR (CKD-EPI)NonAf >90 (>60 ml/min/1.73 sqM) Glucose 207 H (74-99) mg/dL Calcium 9.6 (8.4-10.2) mg/dL Total Bilirubin 1.0 (0.2-1.3) mg/dL AST 21 (14-36) U/L ALT 16 (4-34) U/L Alkaline Phosphatase 97 (38-126) U/L Total Protein 6.9 (6.3-8.2) g/dL Albumin 4.2 (3.5-5.0) g/dL Disposition Clinical Impression: Abscess of vagina, Cellulitis Disposition: HOME SELF-CARE Condition: Stable Instructions (If sedation given, give patient instructions): Abscess Incision and Drainage (ED), Abscess (ED) Additional Instructions: Please follow up with your PCP in 2-[address] warm compresses to the site. Return to the ED for any new or worsening symptoms. Prescriptions: Cephalexin [Keflex] 500 mg PO Q6HR #28 cap Is patient prescribed a controlled substance at d/c from ED?: No Referrals: Anthony Arora DO [Primary Care Provider] - 1-2 days Time of Disposition: 20:55
[2020-09-16 21:08] VITALS: BP 142/98; PULSE 102; TEMP 98.1
== END 2020-09-16 21:07 | disposition home or self-care (01) ==
LOC: EC 17:54
DX: N76.0 Acute vaginitis (principal); E11.9 Type 2 diabetes mellitus without complications; E78.5 Hyperlipidemia, unspecified; I10 Essential (primary) hypertension; I25.10 Atherosclerotic heart disease of native coronary artery without angina pectoris; Z79.02 Long term (current) use of antithrombotics/antiplatelets; Z79.4 Long term (current) use of insulin; Z79.82 Long term (current) use of aspirin; Z79.899 Other long term (current) drug therapy; Z86.16 Personal history of COVID-19
CPT/HCPCS: 10060; 36415; 80053; 85025; 87070; 87205; 96374; 99283

== ENCOUNTER → 2020-12-28 | Outpatient (CLI) | payer MEDICAID ==
--- NOTE | 2020-12-29 08:33 | XR ---
EXAMINATION TYPE: XR Hip Bilateral Complete DATE OF EXAM: 12/28/2020 COMPARISON: NONE HISTORY: Pain TECHNIQUE: 2 views submitted FINDINGS: There is no evidence of erosive change or acute fracture. Concentric narrowing of the joint bilateral ly with hypertrophic change of the acetabulum. There are spurs involving the greater trochanter. Calc ifications in pelvis appear vascular. IMPRESSION: 1. Arthropathy correlate for femoral acetabular impingement.
== END | disposition home or self-care (01) ==
LOC: RADXRMAIN 15:50
PROVIDERS: ATTEND Physician Assistant
DX: M16.0 Bilateral primary osteoarthritis of hip (principal)
CPT/HCPCS: 73521

== ENCOUNTER → 2021-04-05 | Outpatient (CLI) | payer MEDICAID ==
[2021-04-06 01:24] LABS: Basophils # (A) 0.06 X 10*3/uL (0.00-0.10); Basophils % (A) 0.6 %; Eosinophils # (A) 0.07 X 10*3/uL (0.04-0.35); Eosinophils % (A) 0.7 %; HCT 41.6 % (37.2-46.3); HGB 14.3 g/dL (12.0-15.0); Lymphocytes # (A) 2.81 X 10*3/uL (0.90-5.00); Lymphocytes % (A) 28.2 %; MCH 31.2 pg (27.0-32.0); MCHC 34.4 g/dL (32.0-37.0); MCV 90.6 fL (80.0-97.0); Mean Platelet Volume 9.8 fL (9.5-12.2); Monocytes # (A) 0.55 X 10*3/uL (0.20-1.00); Monocytes % (A) 5.5 %; Neutrophils # (A) 6.43 X 10*3/uL (1.80-7.70); Neutrophils % (A) 64.6 %; Platelet Count 392 X 10*3/uL (140-440); RBC 4.59 X 10*6/uL (4.10-5.20); RDW 12.5 % (11.5-14.5); WBC 9.96 X 10*3/uL (4.50-10.00)
[2021-04-06 04:13] LABS: Hemoglobin A1C 12.1 % (4.0-6.0)
[2021-04-06 07:02] LABS: African American GFR (CKD) 113.8 (60.0-200.0); Albumin 4.3 g/dL (3.80-4.90); Albumin/Globulin Ratio 1.87 (1.60-3.17); Anion Gap 17.3 mmol/L (4.00-12.00); BUN/Creat Ratio 25.71 Ratio (12.00-20.00); Calcium 9.2 mg/dL (8.7-10.3); Carbon Dioxide 21.7 mmol/L (21.6-31.8); Chol/HDL Ratio 3.47; Globulin 2.3 g/dL (1.6-3.3); LDL Cholesterol,Calculated 124.6 mg/dL (0.0-131.0); Non-African American GFR(CKD) 98.2 (60.0-200.0); Potassium 4.2 mmol/L (3.5-5.5); Total Bilirubin 0.9 mg/dL (0.2-1.2); Total Protein 6.6 g/dL (6.2-8.2); VLDL Calculation 28.4 mg/dL (5.00-40.00)
== END | disposition home or self-care (01) ==
LOC: LABWHC1 15:49
PROVIDERS: ATTEND Physician Assistant
DX: I10 Essential (primary) hypertension (principal); I25.118 Atherosclerotic heart disease of native coronary artery with other forms of angina pectoris; E78.2 Mixed hyperlipidemia; E55.9 Vitamin D deficiency, unspecified; H40.059 Ocular hypertension, unspecified eye; E11.65 Type 2 diabetes mellitus with hyperglycemia; M43.26 Fusion of spine, lumbar region
CPT/HCPCS: 36415; 80053; 80061; 82550; 83036; 84443; 85025

== ENCOUNTER → 2021-06-07 | Outpatient (CLI) | payer MEDICAID ==
[2021-06-07 11:12] LABS: Basophils # (A) 0.1 k/uL (0-0.2); Basophils % (A) 1 %; Eosinophils # (A) 0.1 k/uL (0-0.7); Eosinophils % (A) 1 %; HCT 48.5 % (34.0-46.0); Lymphocytes # (A) 2.3 k/uL (1.0-4.8); Lymphocytes % (A) 25 %; MCH 30.9 pg (25.0-35.0); MCHC 32.9 g/dL (31.0-37.0); MCV 93.9 fL (80.0-100.0); Mean Platelet Volume 6.7; Monocytes # (A) 0.4 k/uL (0-1.0); Monocytes % (A) 4 %; Neutrophils % (A) 68 %; Platelet Count 443 k/uL (150-450); RBC 5.17 m/uL (3.80-5.40); RDW 12.5 % (11.5-15.5)
[2021-06-07 11:44] LABS: Potassium 4.7 mmol/L (3.5-5.1)
== END | disposition home or self-care (01) ==
LOC: LABPAT 09:50
PROVIDERS: ATTEND Orthopaedic Surgery Hand Surgery
DX: Z01.812 Encounter for preprocedural laboratory examination (principal); M65.311 Trigger thumb, right thumb
CPT/HCPCS: 36415; 80051; 85025; 93005

== ENCOUNTER 2021-06-16 08:12 | Day surgery (SDC) | payer MEDICAID ==
[2021-06-09 11:48] VITALS: BMI 37.5
--- NOTE | 2021-06-14 09:25 | P.HPOR ---
History of Present Illness H&P Date: 06/14/21 Chief Complaint: Right trigger thumb Subjective: This is a 56 year old female that presents today for initial evaluation regarding right thumb pain, locking, catching and clicking that has been present for over 3 months. She works as a nurse at [employer]. She has a carpal tunnel release on this side with Dr. Hackett in 2019. She denies pain or numbness any where else. She has tried resting and anti-inflammatories for her symptoms but has noticed little relief, she now has to passively correct the thumb after it get's locked in flexion. Physical Examination: RUE: AIN/PIN/Radial/Ulnar/Median motor intact. Radial/Ulnar/Median SILT. 2+/4 Radial/Ulnar pulses palpated. Pain and TTP over thumb A1 Nolan. Negative finkelsteins, negative CMC grind. Thumb locks and clicks with flexion/extension requiring passive extension to correct flexion deformity Impression: 1.) Right thumb trigger finger, incarcerated. Plan: Diagnosis and treatment options were discussed with the patient. She has an incarcerated right trigger thumb, we discussed a steroid injection vs surgery, due to the severity of her symptoms she would like to proceed with a right thumb A1 nolan release after discussing risks and benefits of surgery. She may use the thumb as tolerated after surgery in terms of range of motion but should not be performing and lifting of patients or any cleaning or bathing of patients with a surgical incision open with sutures in at work. The patient was agreeable with this plan of action, pre op labs and EKG will be obtained and surgery will be scheduled in the near future. -Lalito Johnson DO Orthopedic Hand/Upper Extremity Surgeon Past Medical History Past Medical History: Coronary Artery Disease (CAD), Chest Pain / Angina, Diabetes Mellitus, Fibromyalgia, Hyperlipidemia, Hypertension, Rheumatoid Arthritis (RA) Additional Past Medical History / Comment(s): occ. 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 Covid + June 2020, DKA June 2020, IBS History of Any Multi-Drug Resistant Organisms: None Reported Past Surgical History: Adenoidectomy, Back Surgery, Section, Cholecystectomy, Heart Catheterization, Heart Catheterization With Stent, Hyster ectomy, Orthopedic Surgery, Tonsillectomy, Tubal Ligation Additional Past Surgical History / Comment(s): RIGHT SHOULDER ARTHROSCOPY, COLONOSCOPY, LOW BACK SURGERY WITH RODS/SCREWS, 8 heart stents, Right carpal tunnel, Past Anesthesia/Blood Transfusion Reactions: No Reported Reaction Date of Last Stent Placement:: 10/2017 Smoking Status: Never smoker - Past Family History Father Family Medical History: Cancer Additional Family Medical History / Comment(s): Brain CA Daughter(s) Family Medical History: Diabetes Mellitus Additional Family Medical History / Comment(s): Patient has 2 sisters with no significant past medical history Sister(s) Family Medical History: Thyroid Disorder Mother Family Medical History: Hypertension, Renal Disease Additional Family Medical History / Comment(s): brights disease Medications and Allergies Home Medications Medication Instructions Recorded Confirmed Type Clopidogrel [Plavix] 75 mg PO DAILY #30 tab 06/15/17 06/09/21 Rx Atorvastatin [Lipitor] 80 mg PO HS 11/01/17 06/09/21 History Isosorbide Mononitrate [Imdur] 120 mg PO DAILY 04/06/18 06/09/21 History Latanoprost Ophth [Xalatan 0.005%] 1 drops BOTH EYES HS 04/06/18 06/09/21 History Aspirin EC [Ecotrin Low Dose] 81 mg PO DAILY 09/06/18 06/09/21 History Ranolazine [Ranexa] 1,000 mg PO BID 09/06/18 06/09/21 History Verapamil HCl [Verelan Pm] 100 mg PO HS 09/06/18 06/09/21 History rOPINIRole HCL [Requip] 0.25 mg PO HS 05/21/19 06/09/21 History Metoprolol Succinate (ER) [Toprol 100 mg PO DAILY 08/29/19 06/09/21 History XL] Alirocumab [Praluent Pen] 150 mg SQ Q14D 07/07/20 06/09/21 History Dulaglutide [Trulicity] 3 mg SQ FR 07/07/20 06/09/21 History Ergocalciferol (Vitamin D2) 1,250 mcg PO RICHTER 09/16/20 06/09/21 History [Drisdol (50,000 Iu)] Furosemide [Lasix] 40 mg PO DAILY 09/16/20 06/09/21 History INSULIN ASPART (NovoLOG) [NovoLOG See Protocol SQ AC-TID 09/16/20 06/09/21 History (formulary)] Ondansetron [Zofran] 4 - 8 mg PO Q8H PRN 09/16/20 06/09/21 History Vit C/E/Zn/Coppr/Lutein/Zeaxan 1 cap PO BID 09/16/20 06/09/21 History [Preservision Areds 2 Softgel] cycloSPORINE 0.05% OPHTH SOLN 1 applicator BOTH EYES BID 09/16/20 06/09/21 History [Restasis] methocarbamoL [Robaxin] 750 mg PO TID PRN 09/16/20 06/09/21 History Insulin Detemir (Levemir) [Levemir] 50 unit SQ BID 06/09/21 06/09/21 History Quinapril HCl [Accupril] 5 mg PO DAILY 06/09/21 06/09/21 History metFORMIN HCL [Glucophage] 850 mg PO BID 06/09/21 06/09/21 History Allergies Allergy/AdvReac Type Severity Reaction Status Date / Time pioglitazone [From Actos] Allergy Swelling Verified 06/09/21 11:34 simvastatin [From Zocor] AdvReac muscle Verified 06/09/21 11:34 spasms Physical Examination Osteopathic Statement: *. No significant issues noted on an osteopathic structural exam other than those noted in the History and Physical/Consult.
[~2021-06-16 08:12] MED LIST changes: -BUPIVACAINE (PF) 0.25% 30 ML VIAL SQ ONE; -DEXAMETHASONE SOD PHOSPHATE 10 MG/ML 1 ML VIAL IV ONE; -HYDROcodone/APAP 7.5-325MG 1 EACH TAB PO ONE; -HYDROmorphone 0.5 MG/0.5 ML SYRINGE IVP PRN; -INSULIN ASPART (NovoLOG) 100 UNIT/ML VIAL SQ ONE; -LACTATED RINGERS 1,000 ML IV SCH; -LIDOCAINE 1% INJ 10MG/ML (20 ML MDV) ONE; -MIDAZOLAM 2 MG/2 ML VIAL IV PRN; -MIDAZOLAM 2 MG/2 ML VIAL ONE; -ONDANSETRON 4 MG/2 ML VIAL IVP ONE; -PROPOFOL 10 MG/ML 20 ML VIAL IV ONE; +Pre Op ABX Message 1 EACH MISC MISCELLANE ONE; -SCOPOLAMINE 1.5MG/72HR PATCH TRANSDERM ONE; -fentaNYL (PF) 50 MCG/ML 2 ML AMP ONE
[2021-06-16] MEDS ORDERED: DEXAMETHASONE SOD PHOSPHATE 4 MG/ML 1 ML VIAL IV ONE (08:44)
[2021-06-16] MEDS ORDERED: ONDANSETRON 4 MG/2 ML VIAL IVP ONE (08:44)
[2021-06-16] MEDS ORDERED: LACTATED RINGERS 1,000 ML IV SCH (08:44)
[2021-06-16] MEDS ORDERED: MIDAZOLAM 2 MG/2 ML VIAL IV PRN (08:44)
[2021-06-16] MEDS ORDERED: SCOPOLAMINE 1.5MG/72HR PATCH TRANSDERM ONE (08:44)
[2021-06-16] MEDS ORDERED: HYDROmorphone 0.5 MG/0.5 ML SYRINGE IVP PRN (08:44)
[2021-06-16] MEDS ORDERED: METOPROLOL TARTRATE 50 MG TAB PO STA (09:12)
[2021-06-16 09:13] LABS: Glucose,Whole Blood 199 mg/dL (75-99)
[2021-06-16 09:14] VITALS: TEMP 97.4
[2021-06-16] MEDS ORDERED: .fentaNYL (PF) 50 MCG/ML AMP ONE (09:17)
[2021-06-16] MEDS ORDERED: PROPOFOL 10 MG/ML 20 ML VIAL IV ONE (09:17)
[2021-06-16] MEDS ORDERED: MIDAZOLAM 2 MG/2 ML VIAL ONE (09:17)
[2021-06-16] MEDS ORDERED: LIDOCAINE 1%-EPI 1:100,000 20 ML VIAL SQ ONE ×2 (09:27→09:30)
[2021-06-16] MEDS ORDERED: BUPIVACAINE (PF) 0.5% 30 ML VIAL SQ ONE ×2 (09:27→09:30)
[2021-06-16 10:14] VITALS: RESP 16
[2021-06-16 10:19] VITALS: PULSE 81
[2021-06-16 10:25] VITALS: BP 160/81
--- NOTE | 2021-06-16 17:31 | P.OP ---
Date of Procedure: 06/16/21 Preoperative Diagnosis: Right thumb trigger finger Postoperative Diagnosis: Right thumb trigger finger Procedure(s) Performed: Right thumb A1 nolan release Anesthesia: MAC Surgeon: Lalito Johnson [employer] #1: Elias Hubbard Estimated Blood Loss (ml): 7 Pathology: none sent Condition: stable Disposition: PACU Operative Findings: This is a 56 year old female who presents today for a right thumb trigger finger A1 nolan release after having failed conservative treatment. Risks and benefits of surgery were discussed with the patient including bleeding, damage to surrounding tissue, infection, need for further surgery as well as risks of anesthesia including pulmonary embolism and even and the patient wished to proceed with surgical intervention. The patient was seen in the pre-operative area by myself. Consent and H&P were completed and updated. The correct extremity was marked in the pre-operative area by myself and all other questions were answered. Operative Narrative: The patient was brought to the operating room by the department of anesthesia. They remained on the portable stretcher and a rolling hand table was brought to the side of the operative extremity. Pre-operative time out was performed indicating the correct patient, procedure and laterality. All in the room agreed. Pre-operative antibiotics were given prior to skin incision. The patient was then drifted off to sleep by the department of anesthesia. MAC anesthesia was utilized and a 50:50 mixture of 1% Lidocaine and 0.5% bupivacaine was injected into the subcutaneous tissues of the palmar skin, 5ccs total. A nonsterile tourniquet was then applied to the operative extremity and the right upper extremity was then prepped and draped in normal sterile fashion. The operative extremity was the exsanguinated with an esmarch bandage and the tourniquet was inflated to 250mmHg. Transverse incision was made at the base of the thumb overlying the A1 nolan. Blunt dissection was taken down to the level of the A1 nolan. Ragnell retract ors were placed both radially and ulnarly to protect neurovascular bundles. Littler tenotomy scissors were then used to release the A1 nolan from proximal to distal under direct visualization. Proximal fascial attachments were released. The tendon was then taken through range of motion and no locking or catching was appreciated. The wound was then closed with interrupted 4-0 nylon sutures in a horizontal mattress fashion. Sterile dressing consisting of adaptic, 4x4s, webril, and an nohemi wrap was applied. Tourniquet was let down and the hand was immediately well perfused. The patient was then woken by the department of anesthesia and transferred to PACU in stable condition. Lalito Johnson D.O. Orthopedic Hand/Upper Extremity Surgeon
== END 2021-06-16 10:42 | disposition home or self-care (01) ==
LOC: OR 08:12
PROVIDERS: ATTEND Orthopaedic Surgery Hand Surgery
DX: M65.311 Trigger thumb, right thumb (principal); I25.10 Atherosclerotic heart disease of native coronary artery without angina pectoris; E11.9 Type 2 diabetes mellitus without complications; E78.5 Hyperlipidemia, unspecified; I10 Essential (primary) hypertension; M06.9 Rheumatoid arthritis, unspecified; M79.7 Fibromyalgia; M54.9 Dorsalgia, unspecified; G89.29 Other chronic pain; Z79.4 Long term (current) use of insulin; Z79.899 Other long term (current) drug therapy; Z79.82 Long term (current) use of aspirin; Z88.8 Allergy status to other drugs, medicaments and biological substances
CPT/HCPCS: 26055; J2250; J1100; J2405; J3010; J2704

== ENCOUNTER → 2021-06-25 | Outpatient (CLI) | payer MEDICAID ==
[2021-06-25 14:42] LABS: Basophils # (A) 0.05 X 10*3/uL (0.00-0.10); Basophils % (A) 0.6 %; Eosinophils # (A) 0.04 X 10*3/uL (0.04-0.35); Eosinophils % (A) 0.4 %; HCT 44.1 % (37.2-46.3); HGB 14.3 g/dL (12.0-15.0); MCHC 32.4 g/dL (32.0-37.0); MCV 92.5 fL (80.0-97.0); Mean Platelet Volume 9.2 fL (9.5-12.2); Monocytes % (A) 5.6 %; Neutrophils # (A) 5.87 X 10*3/uL (1.80-7.70); Neutrophils % (A) 66.1 %; Platelet Count 393 X 10*3/uL (140-440); RBC 4.77 X 10*6/uL (4.10-5.20); RDW 12.5 % (11.5-14.5); WBC 8.89 X 10*3/uL (4.50-10.00)
[2021-06-25 16:51] LABS: ALT 16 U/L (8-44); AST 15 U/L (13-35); African American GFR (CKD) 118.7 (60.0-200.0); Albumin 4.3 g/dL (3.8-4.9); Albumin/Globulin Ratio 1.92 (1.60-3.17); Alkaline Phosphatase 99 U/L (41-126); BUN/Creat Ratio 22.68 Ratio (12.00-20.00); Blood Urea Nitrogen 13.7 mg/dL (9.0-27.0); Calcium 9.5 mg/dL (8.7-10.3); Carbon Dioxide 24.3 mmol/L (20.0-27.5); Chloride 107 mmol/L (96-109); Creatine Kinase 45 U/L (26-186); Globulin 2.2 g/dL (1.6-3.3); Glucose 132 mg/dL (70-110); LDL Cholesterol,Calculated 118.7 mg/dL (0.0-131.0); Non-African American GFR(CKD) 102.4 (60.0-200.0); Potassium 4.7 mmol/L (3.5-5.5); Sodium 143 mmol/L (135-145); Total Protein 6.5 g/dL (6.2-8.2); VLDL Calculation 19.98 mg/dL (5.00-40.00)
== END | disposition home or self-care (01) ==
LOC: LABWHC1 08:39
PROVIDERS: ATTEND Family Medicine
DX: I10 Essential (primary) hypertension (principal); H40.059 Ocular hypertension, unspecified eye; E11.65 Type 2 diabetes mellitus with hyperglycemia; M43.26 Fusion of spine, lumbar region; E55.9 Vitamin D deficiency, unspecified
CPT/HCPCS: 36415; 80053; 80061; 82306; 82550; 83036; 84443; 85025

== ENCOUNTER → 2021-12-27 | Outpatient (CLI) | payer MEDICAID ==
[2021-12-27 14:22] LABS: Basophils # (A) 0.05 X 10*3/uL (0.00-0.10); Basophils % (A) 0.6 %; Eosinophils # (A) 0.06 X 10*3/uL (0.04-0.35); Eosinophils % (A) 0.7 %; HCT 41.1 % (37.2-46.3); HGB 13.3 g/dL (12.0-15.0); Immature Grans, Automated 0.3 %; Lymphocytes # (A) 2.12 X 10*3/uL (0.90-5.00); Lymphocytes % (A) 24.5 %; MCHC 32.4 g/dL (32.0-37.0); MCV 92.6 fL (80.0-97.0); Mean Platelet Volume 9.1 fL (9.5-12.2); Monocytes # (A) 0.42 X 10*3/uL (0.20-1.00); Monocytes % (A) 4.9 %; NRBC Per 100 WBC 0 /100 WBCS (0.0-0.0); Neutrophils # (A) 5.96 X 10*3/uL (1.80-7.70); Platelet Count 392 X 10*3/uL (140-440); RBC 4.44 X 10*6/uL (4.10-5.20); WBC 8.64 X 10*3/uL (4.50-10.00)
[2021-12-27 15:00] LABS: ALT 20 U/L (8-44); AST 15 U/L (13-35); African American GFR (CKD) 96.2 (60.0-200.0); Albumin 4.3 g/dL (3.8-4.9); Albumin/Globulin Ratio 1.87 (1.60-3.17); Alkaline Phosphatase 95 U/L (41-126); BUN/Creat Ratio 22.25 Ratio (12.00-20.00); Blood Urea Nitrogen 17.8 mg/dL (9.0-27.0); Calcium 9.4 mg/dL (8.7-10.3); Carbon Dioxide 27.3 mmol/L (20.0-27.5); Chloride 105 mmol/L (96-109); Chol/HDL Ratio 2.97 Ratio; Globulin 2.3 g/dL (1.6-3.3); Glucose 149 mg/dL (70-110); LDL Cholesterol,Calculated 128.1 mg/dL (0.0-131.0); Potassium 4.8 mmol/L (3.5-5.5); Rheumatoid Factor, Qnt 50 IU/mL (0-15); Sodium 142 mmol/L (135-145); Total Protein 6.6 g/dL (6.2-8.2); VLDL Calculation 14.64 mg/dL (5.00-40.00)
[2021-12-27 17:04] LABS: Cyclic Citrull Pep IgG Unit <0.5 U/mL; Cyclic Citrullinated Pep IgG NEGATIVE (NEGATIVE)
== END | disposition home or self-care (01) ==
LOC: LABWHC1 09:10
PROVIDERS: ATTEND Physician Assistant
DX: I10 Essential (primary) hypertension (principal); E78.2 Mixed hyperlipidemia; E11.65 Type 2 diabetes mellitus with hyperglycemia; M79.7 Fibromyalgia; M13.0 Polyarthritis, unspecified
CPT/HCPCS: 36415; 80053; 80061; 83036; 84443; 85025; 86038; 86140; 86200; 86431

== ENCOUNTER 2022-01-04 06:52 | Emergency (ER) | payer MEDICAID ==
[2022-01-04 06:56] VITALS: BP 152/85; PULSE 100; RESP 22; TEMP 97.8
[2022-01-04] MEDS ORDERED: KETOROLAC 15 MG/ML 1 ML VIAL IVP STA ×2 (07:20→08:50)
[2022-01-04] MEDS ORDERED: ORPHENADRINE 30 MG/ML 2 ML VIAL IVP STA (07:20)
--- NOTE | 2022-01-04 07:36 | ED ---
Back Pain HPI - General Chief Complaint: Back Pain/Injury Stated Complaint: Back Pain Time Seen by Provider: 01/04/22 07:04 Source: patient, RN notes reviewed Limitations: no limitations - History of Present Illness Initial Comments: 86-year-old female presents emergency Department chief complaint low back pain. Patient states the pain started over the last 4 days. States over the last night she has not slept because of increasing pain. She states nothing makes it feel more comfortable states it is worse with movement. Patient states that the pain radiates from her right low back to her right knee. She denies any bowel bladder incontinence or retention anesthesias.Patientdeniesanydecreasedfunction.Patientdeniesfeversorchillsnodysur ianohematurianodiarrheaconstipation - Related Data Home Medications Medication Instructions Recorded Confirmed Atorvastatin [Lipitor] 80 mg PO HS 11/01/17 01/04/22 Isosorbide Mononitrate [Imdur] 120 mg PO DAILY 04/06/18 01/04/22 Aspirin EC [Ecotrin Low Dose] 81 mg PO DAILY 09/06/18 01/04/22 Ranolazine [Ranexa] 1,000 mg PO BID 09/06/18 01/04/22 Verapamil HCl [Verelan Pm] 100 mg PO HS 09/06/18 01/04/22 rOPINIRole HCL [Requip] 0.25 mg PO HS 05/21/19 01/04/22 Metoprolol Succinate (ER) [Toprol 100 mg PO DAILY 08/29/19 01/04/22 XL] Alirocumab [Praluent Pen] 150 mg SQ Q14D 07/07/20 01/04/22 Dulaglutide [Trulicity] 3 mg SQ FR 07/07/20 01/04/22 Ergocalciferol (Vitamin D2) 1,250 mcg PO RICHTER 09/16/20 01/04/22 [Drisdol (50,000 Iu)] Furosemide [Lasix] 40 mg PO DAILY 09/16/20 01/04/22 INSULIN ASPART (NovoLOG) [NovoLOG See Protocol SQ AC-TID 09/16/20 01/04/22 (formulary)] Vit C/E/Zn/Coppr/Lutein/Zeaxan 1 cap PO BID 03/03/21 06/21/22 [Preservision Areds 2 Softgel] methocarbamoL [Robaxin] 750 mg PO BID PRN 09/16/20 01/04/22 Insulin Detemir (Levemir) [Levemir] 60 unit SQ BID 06/09/21 01/04/22 Quinapril HCl [Accupril] 5 mg PO DAILY 06/09/21 01/04/22 traMADol HCl [Ultram] 50 mg PO Q6HR PRN 06/16/21 01/04/22 metFORMIN HCL 1,000 mg PO BID 01/04/22 01/04/22 Previous Rx's Medication Instructions Recorded Clopidogrel [Plavix] 75 mg PO DAILY #30 tab 06/15/17 Ketorolac [Toradol] 10 mg PO Q8HR #15 tab 01/04/22 Orphenadrine [Norflex] 100 mg PO Q12H #14 tab 01/04/22 Allergies Allergy/AdvReac Type Severity Reaction Status Date / Time pioglitazone [From Actos] Allergy Swelling Verified 01/04/22 08:30 simvastatin [From Zocor] AdvReac muscle Verified 01/04/22 08:30 spasms Review of Systems ROS Statement: Those systems with pertinent positive or pertinent negative responses have been documented in the HPI. ROS Other: All systems not noted in ROS Statement are negative. Past Medical History Past Medical History: Coronary Artery Disease (CAD), Chest Pain / Angina, Diabetes Mellitus, Fibromyalgia, Hyperlipidemia, Hypertension, Rheumatoid Arthritis (RA) Additional Past Medical History / Comment(s): occ. numbness/tingling bilateral h ands fingers and bilateral feet's toes, chronic low back pain with rt sided sciatica. Covid + June 2020, DKA June 2020, IBS History of Any Multi-Drug Resistant Organisms: None Reported Past Surgical History: Adenoidectomy, Back Surgery, Section, Cholecystectomy, Heart Catheterization, Heart Catheterization With Stent, Hysterectomy, Orthopedic Surgery, Tonsillectomy, Tubal Ligation Additional Past Surgical History / Comment(s): RIGHT SHOULDER ARTHROSCOPY, COLONOSCOPY, LOW BACK SURGERY WITH RODS/SCREWS, 8 heart stents, Right carpal tunnel, Past Anesthesia/Blood Transfusion Reactions: No Reported Reaction Date of Last Stent Placement:: 10/2017 Past Psychological History: No Psychological Hx Reported Smoking Status: Never smoker - Past Family History Father Family Medical History: Cancer Additional Family Medical History / Comment(s): Brain CA Daughter(s) Family Medical History: Diabetes Mellitus Additional Family Medical History / Comment(s): Patient has 2 sisters with no significant past medical history Sister(s) Family Medical History: Thyroid Disorder Mother Family Medical History: Hypertension, Renal Disease Additional Family Medical History / Comment(s): brights disease General Exam Limitations: no limitations General appearance: alert, in no apparent distress Head exam: Present: atraumatic, normocephalic, normal inspection Eye exam: Present: normal appearance, PERRL, EOMI. Absent: scleral icterus, conjunctival injection, periorbital swelling ENT exam: Present: normal exam, normal oropharynx, mucous membranes moist Neck exam: Present: normal inspection, full ROM. Absent: tenderness, menin gismus, lymphadenopathy Respiratory exam: Present: normal lung sounds bilaterally. Absent: respiratory distress, wheezes, rales, rhonchi, stridor Cardiovascular Exam: Present: regular rate, normal rhythm, normal heart sounds. Absent: systolic murmur, diastolic murmur, rubs, gallop, clicks GI/Abdominal exam: Present: soft, normal bowel sounds. Absent: distended, tenderness, guarding, rebound, rigid Back exam: Present: tenderness, muscle spasm, paraspinal tenderness. Absent: full ROM, vertebral tenderness Neurological exam: Present: alert, oriented X3, CN II-XII intact, reflexes normal. Absent: motor sensory deficit Skin exam: Present: warm, dry, intact, normal color. Absent: rash Course Vital Signs 01/04/22 06:53 Temperature 97.8 F Pulse Rate 100 Respiratory 22 Rate Blood Pressure 152/85 O2 Sat by Pulse 97 Oximetry Medical Decision Making - Medical Decision Making X-ray shows degenerative changes stable hardware Patient has no red flag symptoms. Patient discharged in stable condition return parameters were discussed. Disposition Clinical Impression: Lumbar radiculopathy, acute Disposition: HOME SELF-CARE Condition: Stable Instructions (If sedation given, give patient instructions): Acute Low Back Pain (ED) Additional Instructions: Please return to the Emergency Department if symptoms worsen or any other concerns. Prescriptions: Orphenadrine [Norflex] 100 mg PO Q12H #14 tab Ketorolac [Toradol] 10 mg PO Q8HR #15 tab Is patient prescribed a controlled substance at d/c from ED?: No Referrals: Anthony Arora DO [Primary Care Provider] - 1-2 days Time of Disposition: 08:52
--- NOTE | 2022-01-04 08:24 | XR ---
Lumbosacral spine HISTORY: Low back pain for 4 days radiating down the legs 6 views of the lumbosacral spine 6 views of the lumbosacral spine, no comparisons Surgical clips present right upper quadrant. There are overlying artifacts. There are 4 lumbar vertebral segments. Patient is status post posterior lumbar fusion at L4-S1, ther e is associated laminectomy change. No evident spondylolysis, there is an anterolisthesis grade 1 L4 S1, loss of disc height. Intervertebral spacing block. Sclerosis is present in the posterior elements suggesting facet arthropathy. There is multilevel spondylosis. Atherosclerotic vascular calcificatio ns are present in the aorta iliac distribution. Lumbar vertebral bodies show preserved height. Bone m ineralization appears reduced. There is a spinal curvature. IMPRESSION: Postop changes, degenerative disc disease, facet arthropathy, spondylolisthesis and decre ased bone mineralization. Scoliosis.
[2022-01-04] MEDS ORDERED: ACET/COD 300 MG/30 MG STARTER PACK 6 TAB BTL PO STA (08:51)
== END 2022-01-04 09:27 | disposition home or self-care (01) ==
LOC: EC 06:52
DX: M54.16 Radiculopathy, lumbar region (principal); I25.10 Atherosclerotic heart disease of native coronary artery without angina pectoris; E11.9 Type 2 diabetes mellitus without complications; E78.5 Hyperlipidemia, unspecified; I10 Essential (primary) hypertension; Z79.1 Long term (current) use of non-steroidal anti-inflammatories (NSAID); Z88.8 Allergy status to other drugs, medicaments and biological substances
CPT/HCPCS: 99283; 96374; 96375; 96376; 72110; J2360; J1885

== ENCOUNTER → 2022-01-28 | Outpatient (CLI) | payer MEDICAID ==
--- NOTE | 2022-01-28 20:30 | MR ---
EXAMINATION TYPE: MR lumbar spine wo con DATE OF EXAM: 01/28/2022 COMPARISON: None HISTORY: Intervertebral disc disorders with radiculopathy TECHNIQUE: Multiplanar, multisequence images of the lumbar spine were acquired without IV contrast. L1-L2: Normal disc appearance without desiccation. No herniation, protrusion or disc bulging. No ca nal stenosis is present. Foramina are patent bilaterally. L2-L3: Normal disc appearance without desiccation. No herniation, protrusion or disc bulging. No ca nal stenosis is present. Foramina are patent bilaterally. L3-L4: Normal disc appearance without desiccation. No herniation, protrusion or disc bulging. No ca nal stenosis is present. Foramina are patent bilaterally. L4-L5: Normal disc appearance without desiccation. No herniation, protrusion or disc bulging. No ca nal stenosis is present. Foramina are patent bilaterally. L5-S1: Lumbar laminectomy with pedicular screws. Vertebral spacer noted. Grade 1 anterolisthesis L5 o n S1 measuring 5.7 mm. No evidence for recurrent or residual disease. Lumbar segments are intact. No paraspinal masses are identified. Conus medullaris has a normal appe arance. IMPRESSION: Soft tissue changes in alignment at L5-S1 as discussed.
== END | disposition home or self-care (01) ==
LOC: RADMRIMAIN 19:04
PROVIDERS: ATTEND Family Medicine
DX: M51.16 Intervertebral disc disorders with radiculopathy, lumbar region (principal)
CPT/HCPCS: 72148

== ENCOUNTER → 2022-05-11 | Outpatient (CLI) | payer MEDICAID ==
--- NOTE | 2022-05-11 08:15 | CT ---
EXAMINATION TYPE: CT shoulder LT wo con DATE OF EXAM: 05/11/2022 COMPARISON: None. HISTORY: Fracture upper end left humerus sequela. CT DLP: 998.9 mGycm Automated exposure control for dose reduction was used. CT left shoulder extended through left elbow performed as requested. FINDINGS: There is anterolateral fixating hardware with multiple proximal fixating screws in the humeral head a nd 4 distal fixating screws in the proximal diaphysis of the left humerus through comminuted slightly displaced fracture deformity of the proximal humerus near the surgical neck. Incomplete healing is n oted. There is one fracture fragment posteriorly involving the greater tuberosity measuring approxima tely 2.9 x 1.8 cm separate from the fixating hardware. Glenoid retroversion is present with angle logan sured near 40 degrees. Acromioclavicular joint is partially imaged, visualized portion unremarkable. Remainder of the distal humerus and elbow joint appear within normal limits. Visualized ribs are intact. Incidental partial visualization of surgical change lower lumbar spine on the localizer. IMPRESSION:
== END | disposition home or self-care (01) ==
LOC: RADCTMAIN 06:43
PROVIDERS: ATTEND Orthopaedic Surgery
DX: S42.202S Unspecified fracture of upper end of left humerus, sequela (principal); X58.XXXS Exposure to other specified factors, sequela

== ENCOUNTER → 2022-06-29 | Outpatient (CLI) | payer MEDICAID | END | disposition home or self-care (01) | LOC: LABWHC1 10:30 | PROVIDERS: ATTEND Orthopaedic Surgery | DX: S42.202K Unspecified fracture of upper end of left humerus, subsequent encounter for fracture with nonunion (principal); Y99.9 Unspecified external cause status | CPT/HCPCS: 87070 ==

== ENCOUNTER → 2022-12-06 | Outpatient (CLI) | payer OTHER ==
--- NOTE | 2022-12-07 08:32 | MM ---
Reason for Exam: Screening (asymptomatic). Last mammogram was performed 3 year(s) and 10 month(s) ago. Patient History: Menarche at age 12. First Full-Term at age 20. Right ovary removed at age 33. Hysterectomy at age 33. Postmenopausal. Patient has history of breast feeding. 1997, Excisional Biopsy on the Right side. Niece had breast cancer under age 50. Risk Values: Gloria 5 year model risk: 1.2%. NCI Lifetime model risk: 7.5%. Prior Study Comparison: 05/26/2014 Bilateral Screening Mammogram, [facility]. 12/27/2016 Bilateral Screening Mammogram, [facility]. 02/07/2019 Bilateral Screening Mammogram, [facility]. Tissue Density: There are scattered fibroglandular densities. Findings: Analyzed By CAD. There is no suspicious group of microcalcifications or new suspicious mass in either breast. Overall Assessment: Negative, BI-RAD 1 Management: Screening Mammogram of both breasts in [address] [facility] will attempt to contact patient to return for supplemental views and ultrasound if indicated. Patient should continue monthly self-breast exams. A clinical breast exam by your physician is recommended on an annual basis. This exam should not preclude additional follow-up of suspicious palpable abnormalities. Note on Gloria scores and lifetime risk: 1. A Gloria score greater than 3% is considered moderate risk. If this is the case, consider specialist referral to assess eligibility for a risk reducing agent. 2. If overall lifetime risk for the development of breast cancer is 20% or higher, the patient may qualify for future screening with alternating mammogram and breast MRI. Electronically signed and approved by: Carmine Antonio DO
== END | disposition home or self-care (01) ==
LOC: RADMAMWWP 06:55
PROVIDERS: ATTEND Family Medicine
DX: Z12.31 Encounter for screening mammogram for malignant neoplasm of breast (principal); Z78.0 Asymptomatic menopausal state
CPT/HCPCS: 77067

== ENCOUNTER 2023-12-26 15:07 | Emergency (ER) | payer OTHER ==
[2023-12-26 15:21] LABS: Glucose,Whole Blood 370 mg/dL (70-110)
--- NOTE | 2023-12-26 15:39 | ED ---
General Adult HPI - General Source: patient, RN notes reviewed Mode of arrival: ambulatory Limitations: no limitations <Linda Chavira - Last Filed: 12/26/23 15:38> - General Source: RN notes reviewed, old records reviewed Mode of arrival: ambulatory Limitations: no limitations - History of Present Illness -: days(s) Location: abdomen Radiation: abdomen Severity scale (1-10): 4 Consistency: constant, intermittent Worsens with: none Associated Symptoms: denies other symptoms Treatments Prior to Arrival: none <Dov Sandoval - Last Filed: 12/26/23 19:02> - General Chief complaint: Nausea/Vomiting/Diarrhea Stated complaint: Possible DKA, Dr miguel Time Seen by Provider: 12/26/23 15:23 - History of Present Illness Initial comments: Phillip turner is a 58-year-old female with a history of diabetes who presents emergency department chief complaint of nausea and vomiting over the past 4 to 5 days. Patient states that she seen her primary care provider yesterday where bl ood work was ordered and was referred to report to the emergency department for concern for DKA. History of hospitalization from DKA and 2020. (Linda Chavira) This is a 58-year-old female to the ER for evaluation of diabetes nausea vomiting possible urinary tract infection significant elevated blood sugar and presents to the ER for worsening symptoms lightheadedness and weakness. (Dov Sandoval) - Related Data Home Medications Medication Instructions Recorded Confirmed Atorvastatin [Lipitor] 80 mg PO HS 11/01/17 12/26/23 Aspirin EC [Ecotrin Low Dose] 81 mg PO DAILY 09/06/18 12/26/23 Ranolazine [Ranexa] 1,000 mg PO BID 09/06/18 12/26/23 Alirocumab [Praluent Pen] 150 mg SQ Q14D 07/07/20 12/26/23 Ergocalciferol (Vitamin D2) 1,250 mcg PO TU 09/16/20 12/26/23 [Drisdol (50,000 Iu)] metFORMIN HCL 1,000 mg PO BID 01/04/22 12/26/23 Dulaglutide [Trulicity] 0.75 mg SQ TH 12/26/23 12/26/23 Ezetimibe [Zetia] 10 mg PO DAILY 12/26/23 12/26/23 Insulin Aspart [Insulin Aspart 5 unit SQ AC-TID 12/26/23 12/26/23 Flexpen] Metoprolol Succinate (ER) [Toprol 50 mg PO DAILY 12/26/23 12/26/23 Xl] cycloSPORINE 0.05% OPHTH SOLN 1 drop BOTH EYES BID PRN 12/26/23 12/26/23 [Restasis] lisinopriL [Zestril] 5 mg PO DAILY 12/26/23 12/26/23 rOPINIRole HCL [Requip] 0.5 mg PO HS PRN 12/26/23 12/26/23 Previous Rx's Medication Instructions Recorded Clopidogrel [Plavix] 75 mg PO DAILY #30 tab 06/15/17 Nitrofurantoin Monohyd/M-Cryst 100 mg PO Q12HR #10 cap 12/26/23 [Macrobid] Allergies Allergy/AdvReac Type Severity Reaction Status Date / Time pioglitazone [From Actos] Allergy Swelling Verified 12/26/23 17:01 simvastatin [From Zocor] AdvReac muscle Verified 12/26/23 17:01 spasms Review of Systems ROS Other: All systems not noted in ROS Statement are negative. <Linda Chavira - Last Filed: 12/26/23 15:38> ROS Other: All systems not noted in ROS Statement are negative. <Dov Sandoval - Last Filed: 12/26/23 19:02> ROS Statement: Those systems with pertinent positive or pertinent negative responses have been documented in the HPI. Past Medical History Past Medical History: Coronary Artery Disease (CAD), Chest Pain / Angina, Diabetes Mellitus, Fibromyalgia, Hyperlipidemia, Hypertension, Rheumatoid Arthritis (RA) Additional Past Medical History / Comment(s): occ. 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 Covid + June 2020, DKA June 2020, IBS History of Any Multi-Drug Resistant Organisms: None Reported Past Surgical History: Adenoidectomy, Back Surgery, Section, Cholecystectomy, Heart Catheterization, Heart Catheterization With Stent, Hysterectomy, Orthopedic Surgery, Tonsillectomy, Tubal Ligation Additional Past Surgical History / Comment(s): RIGHT SHOULDER ARTHROSCOPY, COLONOSCOPY, LOW BACK SURGERY WITH RODS/SCREWS, 8 heart stents, Right carpal tunnel, Past Anesthesia/Blood Transfusion Reactions: No Reported Reaction Date of Last Stent Placement:: 10/2017 Past Psychological History: No Psychological Hx Reported Smoking Status: Never smoker Past Alcohol Use History: None Reported Past Drug Use History: None Reported - Past Family History Father Family Medical History: Cancer Additional Family Medical History / Comment(s): Brain CA Daughter(s) Family Medical History: Diabetes Mellitus Additional Family Medical History / Comment(s): Patient has 2 sisters with no significant past medical history Sister(s) Family Medical History: Thyroid Disorder Mother Family Medical History: Hypertension, Renal Disease Additional Family Medical History / Comment(s): brights disease <Linda Chavira - Last Filed: 12/26/23 15:38> General Exam Limitations: no limitations <Linda Chavira - Last Filed: 12/26/23 15:38> General appearance: alert, in no apparent distress Head exam: Present: atraumatic, normocephalic, normal inspection Eye exam: Present: normal appearance, PERRL, EOMI. Absent: scleral icterus, conjunctival injection, periorbital swelling ENT exam: Present: normal exam, mucous membranes moist Neck exam: Present: normal inspection. Absent: tenderness, meningismus, lymphadenopathy Respiratory exam: Present: normal lung sounds bilaterally. Absent: respiratory distress, wheezes, rales, rhonchi, stridor Cardiovascular Exam: Present: regular rate, normal rhythm, normal heart sounds. Absent: systolic murmur, diastolic murmur, rubs, gallop, clicks GI/Abdominal exam: Present: soft, normal bowel sounds. Absent: distended, tenderness, guarding, rebound, rigid Extremities exam: Present: normal inspection, full ROM, normal capillary refill. Absent: tenderness, pedal edema, joint swelling, calf tenderness Back exam: Present: normal inspection Neurological exam: Present: alert, oriented X3, CN II-XII intact Psychiatric exam: Present: normal affect, normal mood Skin exam: Present: warm, dry, intact, normal color. Absent: rash <Dov Sandoval - Last Filed: 12/26/23 19:02> - General Exam Comments Initial Comments: Visual Physical Exam Vital signs reviewed General: Well-appearing, nontoxic, no acute distress. Head: Normocephalic, atraumatic Eyes: PERRLA, EOMI ENT: Airway patent Chest: Nonlabored breathing Skin: No visual rash, normal skin tone Neuro: Alert and oriented 3 Musculoskeletal: No gross abnormalities (Stieler,Linda) Course <Dov Sandoval - Last Filed: 12/26/23 19:02> Vital Signs 12/26/23 15:19 Temperature 98.9 F Pulse Rate 115 H Respiratory 18 Rate Blood Pressure 132/65 O2 Sat by Pulse 99 Oximetry - Reevaluation(s) Reevaluation #1: 12/26/23 19:01 Records reviewed (Dov Sandoval) Reevaluation #2: 12/26/23 19:01 Patient symptoms improving (Dov Sandoval) Reevaluation #3: 12/26/23 19:02 Patient informed of results questions answered (Dov Sandoval) Reevaluation #4: Was pt. sent in by a medical professional or institution (, PA, PHOTOVOLTAIC FABRICATION TECHNICIAN, urgent care, hospital, or skilled nursing...) When possible be specific @ -no Did you speak to anyone other than the patient for history (EMS, parent, family, police, friend...)? What history was obtained from this source @ -no Did you review nursing and triage notes (agree or disagree)? Why? @ -agree Are old charts reviewed (outside hosp., previous admission, EMS record, old EKG, old radiological studies, urgent care reports/EKG's, skilled nursing records)? Report findings @ -yes Differential Diagnosis (chest pain, altered mental status, abdominal pain women, abdominal pain men, vaginal bleeding, weakness, fever, dyspnea, syncope, headache, dizziness, GI bleed, back pain, seizure, CVA, palpatations, mental health, musculoskeletal)? @ -prior EKG interpreted by me (3pts min.). @ -yes X-rays interpreted by me (1pt min.). @ -yes negative for acute disease CT interpreted by me (1pt min.). @ -no U/S interpreted by me (1pt. min.). @ -no What testing was considered but not performed or refused? (CT, X-rays, U/S, labs)? Why? @ -none What meds were considered but not given or refused? Why? @ -none Did you discuss the management of the patient with other professionals (professionals i.e. Dr., PA, PHOTOVOLTAIC FABRICATION TECHNICIAN, lab, RT, psych nurse, social work job titles, operations management professionals, teacher, code enforcement officer, insurance case manager)? Give summary @ -no Was smoking cessation discussed for >3mins.? @ -no Was critical care preformed (if so, how long)? @ -no Were there social determinants of health that impacted care today? How? (Homelessness, low income, unemployed, alcoholism, drug addiction, transportation, low edu. Level, literacy, decrease access to med. care, fci, rehab)? @ -none Was there de-escalation of care discussed even if they declined (Discuss DNR or withdrawal of care, Hospice)? DNR status @ -no What co-morbidities impacted this encounter? (DM, HTN, Smoking, COPD, CAD, Cancer, CVA, ARF, Chemo, Hep., AIDS, mental health diagnosis, sleep apnea, morbid obesity)? @ -none Was patient admitted / discharged? Hospital course, mention meds given and route, prescriptions, significant lab abnormalities, going to OR and other pertinent info. @ - Undiagnosed new problem with uncertain prognosis? @ -no Drug Therapy requiring intensive monitoring for toxicity (Heparin, Nitro, Insulin, Cardizem)? @ -no Were any procedures done? @ -no Diagnosis/symptom? @ - Acute, or Chronic, or Acute on Chronic? @ -Acute Uncomplicated (without systemic symptoms) or Complicated (systemic symptoms)? @ -Complicated Side effects of treatment? @ -no Exacerbation, Progression, or Severe Exacerbation? @ -exacerbation Poses a threat to life or bodily function? How? (Chest pain, [place], [place], pneumonia, PE, COPD, DKA, ARF, appy, cholecystitis, CVA, Diverticulitis, Homicidal, Suicidal, threat to staff... and all critical care pts) @ -yes (Dov Sandoval) EKG Findings - EKG Comments: EKG Findings:: EKG is sinus 83 ID 123 QRS 101 QTc 432 - EKG Results: EKG: interpreted by ERMD <Dov Sandoval - Last Filed: 12/26/23 19:02> Medical Decision Making <Linda Chavira - Last Filed: 12/26/23 15:38> - Lab Data Result diagrams: 12/26/23 16:09 12/26/23 16:09 <Dov Sandoval - Last Filed: 12/26/23 19:02> - Medical Decision Making I completed the quick note portion of this chart signed Linda Chavira PA-C (Linda Chavira) 58 female to the ER for evaluation of elevated blood sugar with urinary tract infection. Patient be treated with IV antibiotics and can be discharged home (Dov Holland) - Lab Data Lab Results 12/26/23 12/26/23 12/26/23 Range/Units 15:18 16:09 16:09 WBC 10.3 (3.8-10.6) k/uL RBC 4.34 (3.80-5.40) m/uL Hgb 14.1 (11.4-16.0) gm/dL Hct 41.0 (34.0-46.0) % MCV 94.6 (80.0-100.0) fL MCH 32.5 (25.0-35.0) pg MCHC 34.4 (31.0-37.0) g/dL RDW 12.5 (11.5-15.5) % Plt Count 519 H (150-450) k/uL MPV 7.1 Neutrophils % 73 % Lymphocytes % 20 % Monocytes % 4 % Eosinophils % 2 % Basophils % 1 % Neutrophils # 7.5 (1.3-7.7) k/uL Lymphocytes # 2.1 (1.0-4.8) k/uL Monocytes # 0.4 (0-1.0) k/uL Eosinophils # 0.2 (0-0.7) k/uL Basophils # 0.1 (0-0.2) k/uL Sodium (137-145) mmol/L Potassium (3.5-5.1) mmol/L Chloride (98-107) mmol/L Carbon Dioxide (22-30) mmol/L Anion Gap mmol/L BUN (7-17) mg/dL Creatinine (0.52-1.04) mg/dL Est GFR (CKD-EPI)AfAm (>60 ml/min/1.73 sqM) Est GFR (CKD-EPI)NonAf (>60 ml/min/1.73 sqM) Glucose (74-99) mg/dL POC Glucose (mg/dL) 370 H (70-110) mg/dL POC Glu [employer] Plasma Etcher ID Joann Rivera Calcium (8.4-10.2) mg/dL Phosphorus (2.5-4.5) mg/dL Magnesium (1.6-2.3) mg/dL Total Bilirubin (0.2-1.3) mg/dL AST (14-36) U/L ALT (4-34) U/L Alkaline Phosphatase (38-126) U/L Total Protein (6.3-8.2) g/dL Albumin (3.5-5.0) g/dL Urine Color Colorless Urine Appearance Cloudy H (Clear) Urine pH 5.5 (5.0-8.0) Ur Specific [place] 1.028 (1.001-1.035) Urine Protein Negative (Negative) Urine Glucose (UA) 4+ H (Negative) Urine Ketones 2+ H (Negative) Urine Blood Trace H (Negative) Urine Nitrite Negative (Negative) Urine Bilirubin Negative (Negative) Urine Urobilinogen <2.0 (<2.0) mg/dL Ur Leukocyte Esterase Large H (Negative) Urine RBC 6 H (0-5) /hpf Urine WBC >182 H (0-5) /hpf Urine WBC Clumps Few H (None) /hpf Urine Bacteria Rare H (None) /hpf Urine Mucus Rare H (None) /hpf Acetone, Qual (Negative) 12/26/23 12/26/23 Range/Units 16:09 16:22 WBC (3.8-10.6) k/uL RBC (3.80-5.40) m/uL Hgb (11.4-16.0) gm/dL Hct (34.0-46.0) % MCV (80.0-100.0) fL MCH (25.0-35.0) pg MCHC (31.0-37.0) g/dL RDW (11.5-15.5) % Plt Count (150-450) k/uL MPV Neutrophils % % Lymphocytes % % Monocytes % % Eosinophils % % Basophils % % Neutrophils # (1.3-7.7) k/uL Lymphocytes # (1.0-4.8) k/uL Monocytes # (0-1.0) k/uL Eosinophils # (0-0.7) k/uL Basophils # (0-0.2) k/uL Sodium 136 L (137-145) mmol/L Potassium 4.1 (3.5-5.1) mmol/L Chloride 99 (98-107) mmol/L Carbon Dioxide 24 (22-30) mmol/L Anion Gap 13 mmol/L BUN 28 H (7-17) mg/dL Creatinine 0.67 (0.52-1.04) mg/dL Est GFR (CKD-EPI)AfAm >90 (>60 ml/min/1.73 sqM) Est GFR (CKD-EPI)NonAf >90 (>60 ml/min/1.73 sqM) Glucose 381 H (74-99) mg/dL POC Glucose (mg/dL) 366 H (70-110) mg/dL POC Glu [employer] Plasma Etcher Nadege Johnson Calcium 8.8 (8.4-10.2) mg/dL Phosphorus 4.1 (2.5-4.5) mg/dL Magnesium 1.7 (1.6-2.3) mg/dL Total Bilirubin 0.7 (0.2-1.3) mg/dL AST 23 (14-36) U/L ALT 19 (4-34) U/L Alkaline Phosphatase 166 H (38-126) U/L Total Protein 6.7 (6.3-8.2) g/dL Albumin 4.4 (3.5-5.0) g/dL Urine Color Urine Appearance (Clear) Urine pH (5.0-8.0) Ur Specific [place] (1.001-1.035) Urine Protein (Negative) Urine Glucose (UA) (Negative) Urine Ketones (Negative) Urine Blood (Negative) Urine Nitrite (Negative) Urine Bilirubin (Negative) Urine Urobilinogen (<2.0) mg/dL Ur Leukocyte Esterase (Negative) Urine RBC (0-5) /hpf Urine WBC (0-5) /hpf Urine WBC Clumps (None) /hpf Urine Bacteria (None) /hpf Urine Mucus (None) /hpf Acetone, Qual Positive (Negative) Disposition <Linda Chavira - Last Filed: 12/26/23 15:38> Is patient prescribed a controlled substance at d/c from ED?: No Time of Disposition: 17:50 <Dov Sandoval - Last Filed: 12/26/23 19:02> Clinical Impression: Dehydration, UTI (urinary tract infection), Hyperglycemia Disposition: HOME SELF-CARE Condition: Good Instructions (If sedation given, give patient instructions): Urinary Tract Infection in Women (ED), Acute Nausea and Vomiting (ED) Prescriptions: Nitrofurantoin Monohyd/M-Cryst [Macrobid] 100 mg PO Q12HR #10 cap Referrals: Anthony Arora DO [Primary Care Provider] - 1-2 days
[2023-12-26 16:25] LABS: Glucose,Whole Blood 366 mg/dL (70-110)
[2023-12-26 16:28] LABS: Basophils # (A) 0.1 k/uL (0-0.2); Basophils % (A) 1 %; Eosinophils # (A) 0.2 k/uL (0-0.7); Eosinophils % (A) 2 %; HGB 14.1 gm/dL (11.4-16.0); Lymphocytes # (A) 2.1 k/uL (1.0-4.8); Lymphocytes % (A) 20 %; MCH 32.5 pg (25.0-35.0); MCHC 34.4 g/dL (31.0-37.0); MCV 94.6 fL (80.0-100.0); Mean Platelet Volume 7.1; Monocytes # (A) 0.4 k/uL (0-1.0); Monocytes % (A) 4 %; Neutrophils # (A) 7.5 k/uL (1.3-7.7); Neutrophils % (A) 73 %; Platelet Count 519 k/uL (150-450); RBC 4.34 m/uL (3.80-5.40); RDW 12.5 % (11.5-15.5); WBC 10.3 k/uL (3.8-10.6)
[2023-12-26 16:35] LABS: ALT 19 U/L (4-34); AST 23 U/L (14-36); African American GFR (CKD) >90 (>60 ml/min/1.73 sqM); Albumin 4.4 g/dL (3.5-5.0); Alkaline Phosphatase 166 U/L (38-126); Anion Gap 13 mmol/L; Blood Urea Nitrogen 28 mg/dL (7-17); Calcium 8.8 mg/dL (8.4-10.2); Carbon Dioxide 24 mmol/L (22-30); Chloride 99 mmol/L (98-107); Glucose 381 mg/dL (74-99); Magnesium 1.7 mg/dL (1.6-2.3); Non-African American GFR(CKD) >90 (>60 ml/min/1.73 sqM); Phosphorus 4.1 mg/dL (2.5-4.5); Potassium 4.1 mmol/L (3.5-5.1); Sodium 136 mmol/L (137-145); Total Bilirubin 0.7 mg/dL (0.2-1.3); Total Protein 6.7 g/dL (6.3-8.2)
[2023-12-26 16:38] LABS: Appearance,Urine Cloudy (Clear); Bacteria,Urine Rare /hpf; Bilirubin,Urine Negative (Negative); Blood,Urine Trace (Negative); Color,Urine Colorless; Glucose,Urine (UA) 4+ (Negative); Leukocyte Esterase,Urine Large (Negative); Mucus,Urine Rare /hpf; Nitrite,Urine Negative (Negative); PH, Urine 5.5 (5.0-8.0); Protein,Urine Negative (Negative); RBC,Urine 6 /hpf (0-5); Specific Gravity,Urine 1.028 (1.001-1.035); Urobilinogen,Urine <2.0 mg/dL (<2.0); WBC,Urine >182 /hpf (0-5)
[2023-12-26 16:41] LABS: Ketones,Urine 2+ (Negative)
[2023-12-26] MEDS: SODIUM CHLORIDE 0.9% 1,000 ML IV STA (17:17)
[2023-12-26] MEDS: ONDANSETRON 4 MG/2 ML VIAL IVP STA (17:17)
[2023-12-26] MEDS: NITROFURANTOIN MONOHYD/M-CRYST 100 MG CAP PO STA (18:48)
[2023-12-26 19:09] VITALS: TEMP 98.5
[2023-12-26 20:05] VITALS: BP 120/75; PULSE 96; RESP 18
== END 2023-12-26 20:05 | disposition home or self-care (01) ==
LOC: EC 15:07
DX: N39.0 Urinary tract infection, site not specified (principal); E86.0 Dehydration; E11.65 Type 2 diabetes mellitus with hyperglycemia; Z79.84 Long term (current) use of oral hypoglycemic drugs; Z79.4 Long term (current) use of insulin; Z88.1 Allergy status to other antibiotic agents; Z91.09 Other allergy status, other than to drugs and biological substances; Z86.16 Personal history of COVID-19
CPT/HCPCS: 99284; 96365; 96375; 96361; 36415; 93005; 80053; 82009; 83735; 84100; 85025; 81001; J2405; J0696

== ENCOUNTER → 2024-02-14 | Outpatient (CLI) | payer OTHER ==
--- NOTE | 2024-02-14 16:29 | CT ---
EXAMINATION TYPE: CT brain wo con CT DLP: 1098.8 mGycm, Automated exposure control for dose reduction was used. DATE OF EXAM: 02/14/2024 4:24 PM COMPARISON: None. CLINICAL INDICATION:Female, 58 years old with history of R112 Nausea w vomiting,un,R63.4,R10.84,R42,R 51.9, abnormal weight loss > 80 lbs x 6 months TECHNIQUE: Brain: Axial CT images of the brain were obtained with coronal and sagittal reformats created and rev iewed. Contrast used: None. Oral contrast used: None. FINDINGS: Brain: Extra-axial spaces: No abnormal extra-axial fluid collections. Ventricular system: Within normal limits Cerebral parenchyma: No acute intraparenchymal hemorrhage or mass effect. The contreras-white junction is well differentiated. Cerebellum: Unremarkable. Mass effect: No evidence of midline shift. Intracranial vasculature: Atherosclerotic calcifications of the intracranial vessels. Soft tissues: Normal. Calvarium/osseous structures: No depressed skull fracture. Paranasal sinuses and mastoid air cells: Mild scattered paranasal sinus disease. Visualized orbits: Orbital contents are intact. IMPRESSION: No acute intracranial process.
--- NOTE | 2024-02-14 16:34 | CT ---
EXAMINATION TYPE: CT abdomen pelvis w con CT DLP: 874.9 mGycm, Automated exposure control for dose reduction was used. DATE OF EXAM: 02/14/2024 4:24 PM COMPARISON: None CLINICAL INDICATION:Female, 58 years old with history of R112 Nausea w vomiting,un,R63.4,R10.84,R42,R 51.9; nausea and vomiting with weightloss > 80 lbs x 6 months TECHNIQUE: Axial CT abdomen pelvis w con;Sagittal and coronal reformats were created on a separate w orkstation. Contrast used:100 mL of Isovue 300 with IV Contrast, (none if empty) Oral contrast used: with Oral Contrast (none if empty) FINDINGS: LOWER CHEST: Unremarkable ABDOMEN LIVER: Indeterminate lesion in the left hepatic lobe measuring 25 x 12 mm. GALLBLADDER AND BILE DUCTS: The gallbladder surgically absent. PANCREAS: Unremarkable. SPLEEN: Unremarkable. ADRENAL GLANDS: Unremarkable. KIDNEYS AND URETERS: No evidence of hydronephrosis or renal calculus. The ureters are unremarkable. PELVIS BLADDER: Unremarkable REPRODUCTIVE: Unremarkable. ABDOMEN & PELVIS STOMACH AND BOWEL: No evidence of bowel obstruction. Large amount stool in the colon. PERITONEUM/RETROPERITONEUM: No evidence of pneumoperitoneum or free fluid. VASCULATURE: No evidence of aortic aneurysm. MUSCULOSKELETAL: No acute osseous abnormalities fixation changes of the spine appear intact. LYMPH NODES: No gross evidence for lymphadenopathy. SOFT TISSUE/ABDOMINAL WALL: Fat-containing umbilical hernia. IMPRESSION: 1. No evidence for acute abdominal process. 2. 4. Indeterminate lesion in the left hepatic lobe measuring up to 24 x 12 mm. Further evaluation with liver mass protocol MRI recommended. 3. No evidence for lymphadenopathy. 4. Large amount stool in the colon.
== END | disposition home or self-care (01) ==
LOC: RADCTMAIN 13:51
PROVIDERS: ATTEND Family Medicine
DX: R11.2 Nausea with vomiting, unspecified (principal); R63.4 Abnormal weight loss; R10.84 Generalized abdominal pain; R42 Dizziness and giddiness; R51.9 Headache, unspecified
CPT/HCPCS: 70450; 74177; Q9967

== ENCOUNTER → 2024-03-13 | Outpatient (CLI) | payer OTHER ==
--- NOTE | 2024-03-13 15:38 | MR ---
EXAMINATION TYPE: MR abdomen wo/w con DATE OF EXAM: 03/13/2024 2:42 PM INDICATION: Patient age:Female; 58 years old; Reason for study: R93.2 ABNORMAL FINDINGS ON DX IMAGING OF LIVER; right upper quadrant pain, nausea and vomiting, weight loss. COMPARISON: CT abdomen and pelvis 02/14/2024 TECHNIQUE: Multiplanar multi-sequence imaging was performed without and with IV contrast. The patien t was given 6 ccs of Gadavist intravenously and dynamic imaging was performed. Post IV contrast subtr action images were also submitted for review. FINDINGS: LOWER CHEST: No gross irregularity. ABDOMEN Liver: Noncirrhotic morphology. Mildly enlarged measuring 19.4 cm in CC dimension. T2 hyperintense le roger within the left hepatic lobe measuring 2.5 x 1.8 x 2.8 cm (series 301, image 13). This demonstra luz peripheral nodular discontinuous enhancement on contrast imaging. There is no complete fill in on delayed imaging. Gallbladder and Bile ducts: Gallbladder is surgical absent. No biliary ductal dilatation. Pancreas: Unremarkable. Spleen: Unremarkable. Adrenal glands: Unremarkable. Kidneys: Unremarkable. Stomach and Bowel: Unremarkable as visualized. Peritoneum: No evidence of pneumoperitoneum, free fluid, or adenopathy. Vasculature: Unremarkable. No aortic aneurysm. Abdominal wall: Unremarkable. Musculoskeletal: The osseous structures appear intact. Mild levocurvature of the thoracic lumbar spin e. Post surgical changes from posterior fusion hardware involving L5-S1. IMPRESSION: Hepatic 2.8 cm lesion with MRI characteristics suggesting a benign hemangioma.
== END | disposition home or self-care (01) ==
LOC: RADMRIMAIN 13:07
PROVIDERS: ATTEND Family Medicine
DX: R93.2 Abnormal findings on diagnostic imaging of liver and biliary tract
CPT/HCPCS: 74183

== ENCOUNTER → 2024-11-20 | Outpatient (CLI) | payer OTHER ==
--- NOTE | 2024-11-21 07:54 | MM ---
Reason for Exam: Screening (asymptomatic). Last mammogram was performed 2 year(s) and 0 month(s) ago. Patient History: Menarche at age 12. First Full-Term at age 20. Right ovary removed at age 33. Hysterectomy at age 33. Postmenopausal. Patient has history of breast feeding. 1997, Excisional Biopsy on the Right side. Niece had breast cancer under age 50. Risk Values: Gloria 5 year model risk: 1.2%. NCI Lifetime model risk: 7.2%. Prior Study Comparison: 12/27/2016 Bilateral Screening Mammogram, [facility]. 02/07/2019 Bilateral Screening Mammogram, [facility]. 12/06/2022 Bilateral MG screening mammo w CAD, [facility]. Tissue Density: There are scattered areas of fibroglandular density. Findings: Analyzed By CAD. Right breast: There is no suspicious group of microcalcifications or new suspicious mass. Left breast: There is no suspicious group of microcalcifications or new suspicious mass. No finding to correlate with lump in axilla. Overall Assessment: Negative, BI-RAD 1 Management: Screening Mammogram of both breasts in [address] [facility] will attempt to contact patient to return for supplemental views and ultrasound if indicated. Patient should continue monthly self-breast exams. A clinical breast exam by your physician is recommended on an annual basis. This exam should not preclude additional follow-up of suspicious palpable abnormalities. Note on Gloria scores and lifetime risk: 1. A Gloria score greater than 3% is considered moderate risk. If this is the case, consider specialist referral to assess eligibility for a risk reducing agent. 2. If overall lifetime risk for the development of breast cancer is 20% or higher, the patient may qualify for future screening with alternating mammogram and breast MRI. [facility], , 11/21/2024 7:51 AM. Electronically signed and approved by: Carmine Antonio DO
== END | disposition home or self-care (01) ==
LOC: RADMAMWWP 12:46
PROVIDERS: ATTEND Family Medicine
DX: Z12.31 Encounter for screening mammogram for malignant neoplasm of breast (principal); R92.323 Mammographic fibroglandular density, bilateral breasts; Z78.0 Asymptomatic menopausal state; Z80.3 Family history of malignant neoplasm of breast
CPT/HCPCS: 77063; 77067

== ENCOUNTER → 2025-01-04 | Outpatient (CLI) | payer MEDICARE ==
--- NOTE | 2025-01-04 19:51 | MR ---
INDICATION: Patient age:Female; 59 years old; Reason for study: M54.2 CERV SPINE; [facility]. COMPARISON: MR cervical spine 05/22/2019, 08/29/2012, cervical spine radiograph 04/29/2019. TECHNIQUE: Multi planar, multi sequence imaging was performed of the cervical spine. No Gadolinium wa s given. FINDINGS: Alignment: The cervical vertebral bodies have preserved heights. Reversal of the normal cervical lord osis. No spondylolisthesis. Bones: Bone signal is within normal limits. No abnormal STIR signal. Cord: The spinal cord is unremarkable with regards to their signal intensity and morphology. Discs: Multilevel disc desiccation is present. C2-C3: No significant disc pathology. The spinal canal is patent. No neural foraminal stenosis. C3-C4: No significant disc pathology. The spinal canal is patent. No neural foraminal stenosis. C4-C5: No significant disc pathology. The spinal canal is patent. No neural foraminal stenosis. C5-C6: Broad-based disc bulge with effacement of the anterior thecal sac. No abutment of the spinal c ord. Results in minimal central canal stenosis. Uncovertebral joint hypertrophy. The left neural for amen is patent. Moderate right neural foraminal stenosis redemonstrated. C6-C7: Broad-based disc bulge with mild effacement of the anterior thecal sac. No abutment of the spi nal cord. No significant central canal stenosis. No neural foraminal stenosis. C7-T1: No significant disc pathology. The spinal canal is patent. No neural foraminal stenosis. Other: Stable small well-circumscribed 1.1 cm T1 hyperintense benign lesion within the subcutaneous t issues of the left upper back. Possible sebaceous cyst. IMPRESSION: Overall stable MRI from 05/22/2019 exam with mild multilevel degenerative disc disease of the lower ce rvical spine. Redemonstration of disc bulges at C5-C6 and C6-C7 without significant spinal canal sten osis. Uncovertebral joint hypertrophy at C5-C6 with moderate right neural foraminal stenosis again. [facility], , 01/04/2025 7:48 PM
== END | disposition home or self-care (01) ==
LOC: RADMRIMAIN 17:00
PROVIDERS: ATTEND Orthopaedic Surgery Orthopaedic Surgery of the Spine
DX: M48.02 Spinal stenosis, cervical region (principal); M50.322 Other cervical disc degeneration at C5-C6 level; M47.812 Spondylosis without myelopathy or radiculopathy, cervical region
CPT/HCPCS: 72141